=== PATIENT | female | born 1955 | race Asian ===

== ENCOUNTER → 2020-06-20 13:39 | Outpatient (BNVA) | payer SELFPAY | PROVIDERS: PCP Internal Medicine; Visit Provider Internal Medicine | DX: I48.0 Paroxysmal atrial fibrillation (principal); Z51.81 Encounter for therapeutic drug level monitoring; Z79.01 Long term (current) use of anticoagulants | CPT/HCPCS: 85610 ==

== ENCOUNTER → 2020-06-25 08:16 | Outpatient (REF) | payer OTHER, SELFPAY ==
--- NOTE | 2020-06-25 | NM_ITS ---
Lexiscan Myocardial perfusion study Indication: Chest pressure, shortness of breath, atrial fibrillation, assess for coronary disease and ischemia Technique: The patient was brought in for a Lexiscan perfusion study on 06/25/2020 and was injected 0.4 mg of Lexiscan intravenously. Within a minute of this injection 25 mCi of sestamibi was given intravenously. Images were obtained using the SPECT gamma camera interlaced with the gating device. Images were obtained in supine position. Resting perfusion study was performed on 07/01/2020. Patient was administered 25 mCi of sestamibi intravenously at rest. Images were then obtained in supine position. Total DLP 131mGy-cm. Images were processed with the software and compared side to side in short axis, horizontal long axis and vertical long axis views. Findings: Raw acquisition was reviewed. Both arms by the patient's side. The stress perfusion study showed essentially absent tracer uptake in the mid to distal inferolateral wall. Proximally, there is moderately diminished tracer uptake. The gated study shows normal LV systolic function with calculated LVEF of 68%. LV cavity is normal in size. The gated study shows diminished contractility in the mid to distal inferolateral wall. Resting study shows mildly diminished tracer uptake in the distal part of inferolateral wall. Gating at rest reveals normal wall motion with ejection fraction at 68%. The findings are consistent with mostly reversible defect along the inferolateral wall. In the distal portion this appears fixed. Impression: 1. Myocardial perfusion imaging study shows large area of severe ischemia along the inferolateral wall. In the distal portion, there is a small area of fixed component that might indicate a nontransmural infarct. 2. Gated LVEF is 68% during stress and rest. 3. Transient ischemic dilatation not present. EKG component of the test reported separately.
--- NOTE | 2020-06-25 08:30 | CA_ITS ---
Transthoracic Echocardiogram Patient (Last, First, Middle): Dominga Diaz, Gender: Female Date of : 1955 Age: 64 Procedure Date: 06/25/2020 Procedure Type: Transthoracic Echocardiogram Location: OP Height: 157.48 cm Weight: 72.57 kg BSA: 1.74 m2 Heart Rate: bpm BP: 148 / 80 mmHg Cellophane Tester: SHERRELL Referring MD: Alex Kelly MD Symptoms: 148.0 Paroxysmal atrial fibrillation 110 Essential hypertension Study Quality: Fair ECG Rhythm: Sinus Conclusions: - The left ventricular systolic function is normal. The visually estimated ejection fraction is between 60-65%. - The left atrium is severely dilated. - The mitral valve appears rheumatic. There is moderate mitral valve stenosis. - The pulmonary artery systolic pressure is normal. Findings Left Ventricle Normal left ventricular cavity size. There is normal left ventricular wall thickness. The left ventricular systolic function is normal. The visually estimated ejection fraction is between 60-65%. There is no evidence of regional wall motion abnormalities. Evidence suggests grade II (moderate) diastolic dysfunction. Right Ventricle Normal right ventricular cavity size and systolic function. Atria The left atrium is severely dilated. The right atrium is normal in size. Aortic Valve There is a normal trileaflet aortic valve. There is no aortic valve stenosis. There is no aortic valve regurgitation. Mitral Valve The mitral valve appears rheumatic. There is mild mitral annular calcification. There is trace mitral valve regurgitation. There is moderate mitral valve stenosis. Mean gradient across the mitral valve 4.75 mm Hg at 62/Min. Mitral valve area by pressure half time 1.3-1.4 sq cm. Pulmonic Valve The pulmonic valve was not well visualized. Tricuspid Valve Normal tricuspid valve structure. There is trace tricuspid valve regurgitation. The pulmonary artery systolic pressure is normal. Great Vessels The aortic annulus, sinuses of valsalva, and asc aorta are normal in size. Venous The inferior vena cava is normal in size and collapses greater than 50% with inspiration. Pericardium/Pleural There is no evidence of pericardial effusion. Prior Study Comparison No significant change compared to prior study dated: 11/09/2019. Measurements 2D Linear Measurements IVSd: 1.06 0.6-0.9/0.6-1.0 cm LVIDd: 5.27 3.9-5.3/4.2-5.9 cm LVIDs: 3.22 2.0-3.6 cm LVPWd: 0.94 0.7-1.1 cm Ao Root: 2.54 2.1-3.5 cm LV Mass: 248.08 67-162/88-224 g LVOT Diam: 1.88 3.0+(-)1.3 cm Mitral Valve MV VTI: 0.53 MV Pk Kamran: 1.82 MV Mn Kamran: 1.01 MV Pk Grad: 13.22 MV Mn Grad: 4.75 MV Pk E: 1.57 MV PK A: 0.80 MV Decel Time: 303.29 E/A: 1.96 E'Lateral: 0.09 E'Medial: 0.06 PHT: 165.09 MVA PHT: 1.33 Decel [place]: 5.19 Aortic Valve AoV Pk Kamran: 1.49 AoV Pk Grad: 9.04 LVOT LVOT Pk Kamran: 0.90 LVOT Mn Kamran: 0.64 LVOT VTI: 0.22 LVOT Pk Grad: 3.23 LVOT Mn Grad: 1.88 LVOT Diam: 1.88 LVOT Area: 2.77 Diastolic Function MV Pk E: 1.57 MV Pk A: 0.80 E/A: 1.96 E'Medial: 0.06 E' Laterial: 0.09 Tricuspid Valve TR Pk Kamran: 2.59 TR Pk Grad: 26.85 RA Press: 3.00 RVSP: 29.00 Great Vessels Aorta Ao Root-2D: 2.54 2.0-3.7 cm Ao Asc: 3.04 2.1-3.4 cm Updated in Other Vendor System with Status of Final Obey Bartlett MD electronically signed on 06/25/2020 5:17:59 PM with status of Final
--- NOTE | 2020-06-25 09:30 | CA_ITS ---
Acquisition Time: 2020-06-25 09:06:44 Total Exercise Time: 00:02:00 Test Indications: Chest Pain Medications: TRICOR PROTONIX CELEBREX AMLODIPINE AMIODORONE WARFARIN Protocol: LEXISCAN Max HR: 084 BPM 53% of Pred: 157 BPM Max BP: 138/070 mmHG Max Work Load: 1.0 METS Pharmacological stress test using Lexiscan while sitting and kicking her feet. Pt tolerated well, denies any anginal sx. Pt feeling dizzy, sx reversed with Aminophyline 75 mg IV. EKG without any arrhythmia. Non-diagnostic for ischemia. Nuclear images to follow. Normotensive response to test. Test reviewed with Dr. Bartlett Referred By: Alex Kelly Overread By: Eugenio Gaines
== END ==
LOC: HO.CARD 08:16
PROVIDERS: Visit Provider Internal Medicine Cardiovascular Disease
DX: R07.89 Other chest pain (principal); I48.0 Paroxysmal atrial fibrillation; I10 Essential (primary) hypertension; R53.83 Other fatigue; I05.0 Rheumatic mitral stenosis
CPT/HCPCS: 78452; 93017; 93306; A9500; J0280; J2785

== ENCOUNTER → 2020-06-28 14:05 | Outpatient (BNVA) | payer OTHER, SELFPAY | PROVIDERS: PCP Internal Medicine; Visit Provider Internal Medicine | DX: I48.0 Paroxysmal atrial fibrillation (principal); Z51.81 Encounter for therapeutic drug level monitoring; Z79.01 Long term (current) use of anticoagulants | CPT/HCPCS: 85610; 99211 ==

== ENCOUNTER → 2020-07-15 10:22 | Outpatient (BNVA) | payer OTHER, SELFPAY | PROVIDERS: PCP Internal Medicine; Referring Provider Internal Medicine; Visit Provider Internal Medicine | DX: I48.0 Paroxysmal atrial fibrillation (principal); Z51.81 Encounter for therapeutic drug level monitoring; Z79.01 Long term (current) use of anticoagulants | CPT/HCPCS: 85610 ==

== ENCOUNTER → 2020-07-25 11:26 | Outpatient (BNVA) | payer SELFPAY | PROVIDERS: PCP Internal Medicine; Referring Provider Internal Medicine; Visit Provider Nurse Practitioner Family | DX: Z01.810 Encounter for preprocedural cardiovascular examination (principal); R94.39 Abnormal result of other cardiovascular function study; I20.9 Angina pectoris, unspecified; I48.0 Paroxysmal atrial fibrillation; I10 Essential (primary) hypertension; I05.0 Rheumatic mitral stenosis; Z79.01 Long term (current) use of anticoagulants | CPT/HCPCS: 93005 ==

== ENCOUNTER 2020-07-25 12:38 | Outpatient (REF) | payer OTHER, SELFPAY ==
[2020-07-25 14:47] LABS: Hematocrit 39.9 % (37-47); Mean Corpuscular HGB Conc 32.6 g/dl (31.0-35.0); Mean Corpuscular Hemoglobin 30.6 pg (27.0-33.0); Mean Corpuscular Volume 93.9 fL (80-98); Mean Platelet Volume 9.4 fL (9.4-12.3); Platelet Count 316 X10*3/uL (160-400); Red Blood Count 4.25 X10*6/uL (4.20-5.50); Red Cell Distribution Width 12.5 % (11.0-16.0); White Blood Count 8.2 X10*3/uL (4.8-10.8)
[2020-07-25 14:56] LABS: INTERNATIONAL NORM RATIO 2.7 (0.9-1.1); Prothrombin Time 31.9 SEC (10.8-13.0)
[2020-07-25 15:14] LABS: Anion Gap 14 (12-20); Blood Urea Nitrogen 25 mg/dL (9-16); Calcium 9.2 mg/dL (8.4-10.2); Carbon Dioxide 26 mmol/L (22-29); Chloride 104 mmol/L (96-108); Estimated Glomerular Filt Rate > 60; Glucose Random 103 mg/dL (60-115); Potassium 4.2 mmol/l (3.3-5.1); Sodium 140 mmol/L (135-145)
== END 2020-07-25 12:39 | disposition home or self-care (01) ==
LOC: HO.LAB 12:38
PROVIDERS: PCP Internal Medicine; Visit Provider Nurse Practitioner Family
DX: R94.39 Abnormal result of other cardiovascular function study (principal)
CPT/HCPCS: 36415; 80048; 85027; 85610

== ENCOUNTER → 2020-08-02 10:42 | Outpatient (BNVA) | payer OTHER, SELFPAY | PROVIDERS: PCP Internal Medicine; Visit Provider Internal Medicine | DX: I48.0 Paroxysmal atrial fibrillation (principal); Z51.81 Encounter for therapeutic drug level monitoring; Z79.01 Long term (current) use of anticoagulants | CPT/HCPCS: 85610; 99211 ==

== ENCOUNTER 2020-08-06 08:52 | Outpatient (REF) | payer OTHER, SELFPAY ==
[2020-08-06 09:46] LABS: COVID-19 Test Negative (Negative)
== END 2020-08-06 08:53 | disposition home or self-care (01) ==
LOC: HO.EMPCOV 08:52
PROVIDERS: Visit Provider Internal Medicine
DX: Z20.828 Contact with and (suspected) exposure to other viral communicable diseases (principal)
CPT/HCPCS: 87635; C9803

== ENCOUNTER → 2020-08-15 13:45 | Outpatient (BNVA) | payer OTHER, SELFPAY | PROVIDERS: PCP Internal Medicine; Visit Provider Internal Medicine | DX: I48.0 Paroxysmal atrial fibrillation (principal); Z51.81 Encounter for therapeutic drug level monitoring; Z79.01 Long term (current) use of anticoagulants | CPT/HCPCS: 85610; 99211 ==

== ENCOUNTER → 2020-08-23 13:55 | Outpatient (BNVA) | payer OTHER, SELFPAY | PROVIDERS: PCP Internal Medicine; Visit Provider Internal Medicine | DX: I48.0 Paroxysmal atrial fibrillation (principal); Z51.81 Encounter for therapeutic drug level monitoring; Z79.01 Long term (current) use of anticoagulants | CPT/HCPCS: 85610; 99211 ==

== ENCOUNTER → 2020-08-30 14:02 | Outpatient (BNVA) | payer OTHER, SELFPAY | PROVIDERS: PCP Internal Medicine; Visit Provider Internal Medicine | DX: I48.0 Paroxysmal atrial fibrillation (principal); Z51.81 Encounter for therapeutic drug level monitoring; Z79.01 Long term (current) use of anticoagulants | CPT/HCPCS: 85610; 99211 ==

== ENCOUNTER → 2020-09-03 11:13 | Outpatient (BNVA) | payer MEDICAID, SELFPAY | PROVIDERS: PCP Internal Medicine; Visit Provider Nurse Practitioner Family | DX: Z76.89 Persons encountering health services in other specified circumstances (principal) ==

== ENCOUNTER → 2020-09-11 14:00 | Outpatient (BNVA) | payer OTHER, SELFPAY | PROVIDERS: PCP Internal Medicine; Visit Provider Internal Medicine | DX: I48.0 Paroxysmal atrial fibrillation (principal); Z51.81 Encounter for therapeutic drug level monitoring; Z79.01 Long term (current) use of anticoagulants | CPT/HCPCS: 85610; 99211 ==

== ENCOUNTER → 2020-09-27 12:48 | Outpatient (BNVA) | payer OTHER, SELFPAY | PROVIDERS: PCP Internal Medicine; Visit Provider Internal Medicine Cardiovascular Disease | DX: I49.8 Other specified cardiac arrhythmias (principal) | CPT/HCPCS: 93005 ==

== ENCOUNTER → 2020-10-10 15:00 | Outpatient (BNVA) | payer OTHER, SELFPAY | PROVIDERS: PCP Internal Medicine; Visit Provider Internal Medicine Cardiovascular Disease ==

== ENCOUNTER → 2020-10-11 13:55 | Outpatient (BNVA) | payer OTHER, SELFPAY | PROVIDERS: PCP Internal Medicine; Visit Provider Internal Medicine | DX: I48.0 Paroxysmal atrial fibrillation (principal); Z51.81 Encounter for therapeutic drug level monitoring; Z79.01 Long term (current) use of anticoagulants | CPT/HCPCS: 85610; 99211 ==

== ENCOUNTER → 2020-11-08 14:05 | Outpatient (BNVA) | payer OTHER, SELFPAY | PROVIDERS: PCP Internal Medicine; Visit Provider Internal Medicine | DX: I48.0 Paroxysmal atrial fibrillation (principal); Z51.81 Encounter for therapeutic drug level monitoring; Z79.01 Long term (current) use of anticoagulants | CPT/HCPCS: 85610; 99211 ==

== ENCOUNTER → 2020-12-06 14:00 | Outpatient (BNVA) | payer OTHER, SELFPAY | PROVIDERS: PCP Internal Medicine; Visit Provider Internal Medicine | DX: I48.0 Paroxysmal atrial fibrillation (principal); Z51.81 Encounter for therapeutic drug level monitoring; Z79.01 Long term (current) use of anticoagulants | CPT/HCPCS: 85610; 99211 ==

== ENCOUNTER → 2020-12-20 13:54 | Outpatient (BNVA) | payer OTHER, SELFPAY | PROVIDERS: PCP Internal Medicine; Visit Provider Internal Medicine | DX: I48.0 Paroxysmal atrial fibrillation (principal); Z79.01 Long term (current) use of anticoagulants; Z51.81 Encounter for therapeutic drug level monitoring | CPT/HCPCS: 85610; 99211 ==

== ENCOUNTER → 2021-01-17 14:01 | Outpatient (BNVA) | payer OTHER, SELFPAY | PROVIDERS: PCP Internal Medicine; Visit Provider Internal Medicine | DX: I48.0 Paroxysmal atrial fibrillation (principal); Z79.01 Long term (current) use of anticoagulants; Z51.81 Encounter for therapeutic drug level monitoring | CPT/HCPCS: 85610; 99211 ==

== ENCOUNTER → 2021-01-23 13:49 | Outpatient (BNVA) | payer OTHER, SELFPAY | PROVIDERS: PCP Internal Medicine; Referring Provider Internal Medicine; Visit Provider Internal Medicine Cardiovascular Disease | DX: I05.0 Rheumatic mitral stenosis (principal); I48.0 Paroxysmal atrial fibrillation; I10 Essential (primary) hypertension | CPT/HCPCS: 93005 ==

== ENCOUNTER → 2021-02-07 13:59 | Outpatient (BNVA) | payer OTHER, SELFPAY | PROVIDERS: PCP Internal Medicine; Visit Provider Internal Medicine | DX: I48.0 Paroxysmal atrial fibrillation (principal); Z51.81 Encounter for therapeutic drug level monitoring; Z79.01 Long term (current) use of anticoagulants | CPT/HCPCS: 85610; 99211 ==

== ENCOUNTER → 2021-02-21 14:01 | Outpatient (BNVA) | payer OTHER, SELFPAY | PROVIDERS: PCP Internal Medicine; Visit Provider Internal Medicine | DX: I48.0 Paroxysmal atrial fibrillation (principal); Z51.81 Encounter for therapeutic drug level monitoring; Z79.01 Long term (current) use of anticoagulants | CPT/HCPCS: 85610; 99211 ==

== ENCOUNTER → 2021-02-28 13:50 | Outpatient (BNVA) | payer OTHER, SELFPAY | PROVIDERS: PCP Internal Medicine; Visit Provider Internal Medicine | DX: I48.0 Paroxysmal atrial fibrillation (principal); Z51.81 Encounter for therapeutic drug level monitoring; Z79.01 Long term (current) use of anticoagulants | CPT/HCPCS: 85610; 99211 ==

== ENCOUNTER → 2021-03-21 13:52 | Outpatient (BNVA) | payer OTHER, SELFPAY | PROVIDERS: PCP Internal Medicine; Visit Provider Internal Medicine | DX: I48.0 Paroxysmal atrial fibrillation (principal); Z51.81 Encounter for therapeutic drug level monitoring; Z79.01 Long term (current) use of anticoagulants | CPT/HCPCS: 85610; 99211 ==

== ENCOUNTER → 2021-03-28 14:07 | Outpatient (BNVA) | payer OTHER, SELFPAY | PROVIDERS: PCP Internal Medicine; Visit Provider Internal Medicine | DX: I48.0 Paroxysmal atrial fibrillation (principal); Z51.81 Encounter for therapeutic drug level monitoring; Z79.01 Long term (current) use of anticoagulants | CPT/HCPCS: 85610; 99211 ==

== ENCOUNTER → 2021-04-18 13:51 | Outpatient (BNVA) | payer OTHER, SELFPAY | PROVIDERS: PCP Internal Medicine; Visit Provider Internal Medicine | DX: I48.0 Paroxysmal atrial fibrillation (principal); Z51.81 Encounter for therapeutic drug level monitoring; Z79.01 Long term (current) use of anticoagulants | CPT/HCPCS: 85610; 99211 ==

== ENCOUNTER → 2021-05-02 13:53 | Outpatient (BNVA) | payer OTHER, SELFPAY | PROVIDERS: PCP Internal Medicine; Visit Provider Internal Medicine | DX: I48.0 Paroxysmal atrial fibrillation (principal); Z51.81 Encounter for therapeutic drug level monitoring; Z79.01 Long term (current) use of anticoagulants | CPT/HCPCS: 85610; 99211 ==

== ENCOUNTER 2021-05-20 08:03 | Outpatient (REF) | payer OTHER, SELFPAY ==
[2021-05-20 09:28] LABS: MANUAL DIFF FLAG NO
[2021-05-20 09:32] LABS: Basophils Absolute Auto 0.1 X10*3/uL (0.0-0.2); Basophils Percent Auto 0.8 % (0-2); Eosinophils Absolute Auto 0.3 X10*3/uL (0.0-0.4); Eosinophils Percent Auto 3.6 % (0-4); Hematocrit 40.9 % (37-47); Hemoglobin 13.6 g/dl (12.0-16.0); Imm Gran Abs Auto 0.11 X10*3/uL (0.00-0.03); Imm Gran Pct Auto 1.3 % (0.0-0.4); Lymphocytes Percent Auto 46.3 % (20-40); Mean Corpuscular HGB Conc 33.3 g/dl (31.0-35.0); Mean Corpuscular Hemoglobin 30.8 pg (27.0-33.0); Mean Corpuscular Volume 92.7 fL (80-98); Mean Platelet Volume 9.6 fL (9.4-12.3); Monocytes Absolute Auto 0.7 X10*3/uL (0.1-1.2); Monocytes Percent Auto 7.9 % (2-11); Neutrophils Absolute Auto 3.5 X10*3/uL (2.0-8.3); Neutrophils Percent Auto 40.1 % (45-73); Platelet Count 255 X10*3/uL (160-400); Red Blood Count 4.41 X10*6/uL (4.20-5.50); Red Cell Distribution Width 12.6 % (11.0-16.0); White Blood Count 8.6 X10*3/uL (4.8-10.8)
[2021-05-20 09:42] LABS: Appearance Urine CLEAR; Color Urine YELLOW; Glucose Urine UA NEG (NEG); Leukocyte Esterase Urine 1+ (NEG); Nitrite Urine NEG (NEG); Specific Gravity - Urine 1.025 (1.005-1.025); UACC Culture Trigger YES; Urine Blood 1+ (NEG); Urine Ketones NEG (NEG); Urine Protein NEG (NEG-TRACE)
[2021-05-20 09:58] LABS: Squamous Epithelial Cell Urine 1+ /LPF
[2021-05-20 09:59] LABS: Mucus Urine 1+ /LPF
[2021-05-20 10:08] LABS: Alanine Aminotransferase 40 U/L (0-31); Albumin Level 4.4 g/dL (3.5-5.0); Alkaline Phosphatase 73 U/L (39-117); Anion Gap 11 (12-20); Aspartate Amino Transferase 42 U/L (5-31); Bilirubin Total 0.5 mg/dL (0.0-1.0); Blood Urea Nitrogen 21 mg/dL (9-16); Calcium 9.4 mg/dL (8.4-10.2); Carbon Dioxide 28 mmol/L (22-29); Chloride 108 mmol/L (96-108); Cholesterol 146 mg/dL; Estimated Glomerular Filt Rate > 60; Glucose Fasting 139 mg/dL (60-99); HDL Cholesterol 35 mg/dL; LDL Cholesterol Calculated 84 mg/dl; Potassium 4.4 mmol/L (3.3-5.1); Sodium 143 mmol/L (135-145); TSH reflex Free T4 1.87 uIU/mL (0.32-4.0); Total Protein 7.3 g/dL (6.5-8.0); Triglycerides 139 mg/dL
[2021-05-20 10:15] LABS: Estimated Average Glucose 148 mg/dL; Hemoglobin A1c % 6.8 %
== END 2021-05-20 08:04 | disposition home or self-care (01) ==
LOC: HO.LAB 08:03
PROVIDERS: PCP Internal Medicine; Visit Provider Internal Medicine
DX: E78.2 Mixed hyperlipidemia (principal); I10 Essential (primary) hypertension; R73.01 Impaired fasting glucose; E55.9 Vitamin D deficiency, unspecified; E66.3 Overweight; I48.0 Paroxysmal atrial fibrillation; K21.9 Gastro-esophageal reflux disease without esophagitis
CPT/HCPCS: 36415; 80053; 80061; 81001; 82306; 83036; 84443; 85025; 87086

== ENCOUNTER → 2021-05-23 13:57 | Outpatient (BNVA) | payer OTHER, MEDICAID, SELFPAY | PROVIDERS: PCP Internal Medicine; Visit Provider Internal Medicine | DX: I48.0 Paroxysmal atrial fibrillation (principal); Z51.81 Encounter for therapeutic drug level monitoring; Z79.01 Long term (current) use of anticoagulants | CPT/HCPCS: 85610; 99211 ==

== ENCOUNTER → 2021-06-20 13:55 | Outpatient (BNVA) | payer MEDICARE, SELFPAY | PROVIDERS: PCP Internal Medicine; Visit Provider Internal Medicine | DX: I48.0 Paroxysmal atrial fibrillation (principal); Z51.81 Encounter for therapeutic drug level monitoring; Z79.01 Long term (current) use of anticoagulants | CPT/HCPCS: 85610; 99211 ==

== ENCOUNTER → 2021-06-30 12:33 | Outpatient (REF) | payer MEDICARE, MEDICAID, SELFPAY ==
--- NOTE | 2021-06-30 12:45 | CA_ITS ---
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 The calculated ejection fraction is 57% by biplane method. - The left atrium is moderately dilated. - The mitral valve appears rheumatic. There is moderate mitral valve stenosis. Mean gradient across the mitral valve 4 mm Hg at 57/minute. By pressure half time, mitral valve area 1.5sq cm (manually checked). Findings Left Ventricle Normal left ventricular cavity size. There is normal left ventricular wall thickness. The left ventricular systolic function is normal. The calculated ejection fraction is 57% by biplane method. Diastolic function is indeterminate on the basis of available data. E/E prime ratio is >15, consistent with elevated filling pressures. Right Ventricle Normal right ventricular cavity size and systolic function. Atria The left atrium is moderately dilated. The right atrium is normal in size. Aortic Valve There is a normal trileaflet aortic valve. There is mild calcification of the aortic valve. There is no aortic valve stenosis. There is no aortic valve regurgitation. Mitral Valve The mitral valve appears rheumatic. There is trace mitral valve regurgitation. There is moderate mitral valve stenosis. Mean gradient across the mitral valve 4 mm Hg at 57/minute. By pressure half time, mitral valve area 1.5sq cm (manually checked). Pulmonic Valve The pulmonic valve was not well visualized. Tricuspid Valve There is trace tricuspid valve regurgitation. The pulmonary artery systolic pressure is normal. Great Vessels The aortic annulus, sinuses of valsalva, and asc aorta are normal in size. Venous The inferior vena cava is normal in size and collapses greater than 50% with inspiration. Pericardium/Pleural There is no evidence of pericardial effusion. Prior Study Comparison No significant change compared to prior study dated: 06/25/2020. Measurements 2D Linear Measurements IVSd: 1.02 0.6-0.9/0.6-1.0 cm LVIDd: 5.25 3.9-5.3/4.2-5.9 cm LVIDd Index: 3.02 2.4-3.2/2.2-3.1 cm/m2 LVIDs: 3.57 2.0-3.6 cm LVPWd: 0.92 0.7-1.1 cm Ao Root: 2.50 2.1-3.5 cm LA Diam: 4.00 2.7-3.8/3.0-4.0 cm LAIDs Index: 2.30 1.5-2.3 cm/m2 LV Mass: 235.75 67-162/88-224 g LV Mass Index: 135.49 43-95/49-115 g/m2 LVOT Diam: 2.10 3.0+(-)1.3 cm 2D Systolic Function EF 4C: 62.30 >55% EF 2C: 54.10 >55% EF BiP: 56.50 >55% Mitral Valve MV VTI: 0.56 MV Pk Kamran: 1.54 MV Mn Kamran: 0.93 MV Pk Grad: 9.00 MV Mn Grad: 4.00 MV Pk E: 1.42 MV PK A: 0.78 MV Decel Time: 345.00 E/A: 1.80 E'Lateral: 4.24 E'Medial: 4.90 E/E' Med: 29.00 E/E' Lat: 33.50 PHT: 101.00 MVA PHT: 2.18 MVA Continuity: 1.31 Decel [place]: 4.11 Aortic Valve AoV Pk Kamran: 1.56 AoV Pk Grad: 10.00 LVOT LVOT Pk Kamran: 0.98 LVOT Mn Kamran: 0.66 LVOT VTI: 0.21 LVOT Pk Grad: 4.00 LVOT Mn Grad: 2.00 LVOT Diam: 2.10 LVOT Area: 3.46 Diastolic Function MV Pk E: 1.42 MV Pk A: 0.78 E/A: 1.80 E'Medial: 4.90 E/E' Med: 29.00 E' Laterial: 4.24 E/E' Lat: 33.50 Right Ventricle TAPSE (mm): 2.39 Tricuspid Valve TR Pk Kamran: 2.67 TR Pk Grad: 29.00 RA Press: 3.00 RVSP: 32.00 Great Vessels Aorta Ao Root-2D: 2.50 2.0-3.7 cm Ao Asc: 3.10 2.1-3.4 cm Updated in Other Vendor System with Status of Final Obey Bartlett MD electronically signed on 07/02/2021 1:01:50 PM with status of Final
== END ==
LOC: HO.CARD 12:33
PROVIDERS: PCP Internal Medicine; Visit Provider Internal Medicine Cardiovascular Disease
DX: I05.0 Rheumatic mitral stenosis (principal)
CPT/HCPCS: 93306

== ENCOUNTER → 2021-07-18 13:56 | Outpatient (BNVA) | payer MEDICARE, SELFPAY | PROVIDERS: PCP Internal Medicine; Visit Provider Internal Medicine | DX: I48.0 Paroxysmal atrial fibrillation (principal); Z51.81 Encounter for therapeutic drug level monitoring; Z79.01 Long term (current) use of anticoagulants | CPT/HCPCS: 85610; 99211 ==

== ENCOUNTER → 2021-07-24 14:02 | Outpatient (BNVA) | payer MEDICARE, SELFPAY | PROVIDERS: PCP Internal Medicine; Referring Provider Internal Medicine; Visit Provider Internal Medicine Cardiovascular Disease | DX: I48.0 Paroxysmal atrial fibrillation (principal); I05.0 Rheumatic mitral stenosis | CPT/HCPCS: 93005; 99212 ==

== ENCOUNTER → 2021-07-25 13:51 | Outpatient (BNVA) | payer MEDICARE, MEDICAID, SELFPAY | PROVIDERS: PCP Internal Medicine; Visit Provider Internal Medicine | DX: I48.0 Paroxysmal atrial fibrillation (principal); Z51.81 Encounter for therapeutic drug level monitoring; Z79.01 Long term (current) use of anticoagulants | CPT/HCPCS: 85610 ==

== ENCOUNTER → 2021-08-06 14:14 | Outpatient (BNVA) | payer MEDICARE, SELFPAY | PROVIDERS: PCP Internal Medicine; Visit Provider Internal Medicine | DX: I48.0 Paroxysmal atrial fibrillation (principal); Z51.81 Encounter for therapeutic drug level monitoring; Z79.01 Long term (current) use of anticoagulants | CPT/HCPCS: 85610; 99211 ==

== ENCOUNTER → 2021-08-15 14:04 | Outpatient (BNVA) | payer MEDICARE, SELFPAY | PROVIDERS: PCP Internal Medicine; Visit Provider Internal Medicine | DX: I48.0 Paroxysmal atrial fibrillation (principal); Z51.81 Encounter for therapeutic drug level monitoring; Z79.01 Long term (current) use of anticoagulants | CPT/HCPCS: 85610; 99211 ==

== ENCOUNTER → 2021-08-25 14:21 | Outpatient (BNVA) | payer MEDICARE, SELFPAY | PROVIDERS: PCP Internal Medicine; Visit Provider Internal Medicine | DX: I48.0 Paroxysmal atrial fibrillation (principal); Z51.81 Encounter for therapeutic drug level monitoring; Z79.01 Long term (current) use of anticoagulants | CPT/HCPCS: 85610; 99211 ==

== ENCOUNTER → 2021-09-01 14:22 | Outpatient (BNVA) | payer MEDICARE, SELFPAY | PROVIDERS: PCP Internal Medicine; Visit Provider Internal Medicine | DX: I48.0 Paroxysmal atrial fibrillation (principal); Z51.81 Encounter for therapeutic drug level monitoring; Z79.01 Long term (current) use of anticoagulants | CPT/HCPCS: 85610; 99211 ==

== ENCOUNTER → 2021-09-11 14:02 | Outpatient (BNVA) | payer MEDICARE, MEDICAID, SELFPAY | PROVIDERS: PCP Internal Medicine; Visit Provider Internal Medicine | DX: I48.0 Paroxysmal atrial fibrillation (principal); Z51.81 Encounter for therapeutic drug level monitoring; Z79.01 Long term (current) use of anticoagulants | CPT/HCPCS: 85610; 99211 ==

== ENCOUNTER 2021-09-18 09:05 | Outpatient (REF) | payer MEDICARE, MEDICAID, SELFPAY ==
[2021-09-18 09:39] LABS: MANUAL DIFF FLAG NO
[2021-09-18 10:00] LABS: Basophils Absolute Auto 0.1 X10*3/uL (0.0-0.2); Basophils Percent Auto 0.7 % (0-2); Eosinophils Absolute Auto 0.3 X10*3/uL (0.0-0.4); Eosinophils Percent Auto 3.2 % (0-4); Hematocrit 40.7 % (37.0-47.0); Hemoglobin 13.4 g/dl (12.0-16.0); Imm Gran Abs Auto 0.06 X10*3/uL (0.00-0.03); Imm Gran Pct Auto 0.7 % (0.0-0.4); Lymphocytes Absolute Auto 3.7 X10*3/uL (1.2-4.9); Mean Corpuscular HGB Conc 32.9 g/dl (31.0-35.0); Mean Corpuscular Hemoglobin 30.7 pg (27.0-33.0); Mean Corpuscular Volume 93.3 fL (80.0-98.0); Monocytes Absolute Auto 0.6 X10*3/uL (0.1-1.2); Monocytes Percent Auto 7.9 % (2-11); Neutrophils Absolute Auto 3.3 x10*3/uL (2.0-8.3); Neutrophils Percent Auto 41.5 % (45-73); Platelet Count 275 X10*3/uL (160-400); Red Blood Count 4.36 X10*6/uL (4.20-5.50); Red Cell Distribution Width 12.8 % (11.0-16.0); White Blood Count 8.1 X10*3/uL (4.8-10.8)
[2021-09-18 10:13] LABS: Estimated Average Glucose 131 mg/dL; Hemoglobin A1c % 6.2 %
[2021-09-18 10:30] LABS: Alanine Aminotransferase 25 U/L (0-31); Albumin Level 4.4 g/dL (3.5-5.0); Alkaline Phosphatase 67 U/L (39-117); Anion Gap 10 (12-20); Aspartate Amino Transferase 30 U/L (5-31); Bilirubin Total 0.5 mg/dL (0.0-1.0); Blood Urea Nitrogen 27 mg/dL (9-16); Calcium 9.6 mg/dL (8.4-10.2); Carbon Dioxide 29 mmol/L (22-29); Chloride 109 mmol/L (96-108); Cholesterol 136 mg/dL; Estimated Glomerular Filt Rate > 60; Glucose Fasting 119 mg/dL (60-99); HDL Cholesterol 41 mg/dL; LDL Cholesterol Calculated 79 mg/dl; Potassium 4.2 mmol/L (3.3-5.1); Sodium 144 mmol/L (135-145); Total Protein 7.4 g/dL (6.5-8.0); Triglycerides 84 mg/dL
[2021-09-18 10:52] LABS: TSH reflex Free T4 1.49 uIU/mL (0.32-4.0); Vitamin D 25-OH Total 30.2 ng/mL (>30)
[2021-09-18 10:55] LABS: Appearance Urine CLEAR; Color Urine YELLOW; Glucose Urine UA NEG (NEG); Leukocyte Esterase Urine TRACE (NEG); Nitrite Urine NEG (NEG); Specific Gravity - Urine 1.025 (1.005-1.025); UACC Culture Trigger YES; Urine Blood 1+ (NEG); Urine Ketones NEG (NEG); Urine Protein NEG (NEG-TRACE)
[2021-09-18 11:05] LABS: Mucus Urine TRACE /LPF; Squamous Epithelial Cell Urine TRACE /LPF
== END 2021-09-18 09:06 | disposition home or self-care (01) ==
LOC: HO.LAB 09:05
PROVIDERS: PCP Internal Medicine; Visit Provider Internal Medicine
DX: E78.00 Pure hypercholesterolemia, unspecified (principal); E11.9 Type 2 diabetes mellitus without complications; E55.9 Vitamin D deficiency, unspecified; I10 Essential (primary) hypertension
CPT/HCPCS: 36415; 80053; 80061; 81001; 82306; 83036; 84443; 85025; 87086

== ENCOUNTER → 2021-10-10 13:55 | Outpatient (BNVA) | payer MEDICARE, MEDICAID, SELFPAY | PROVIDERS: PCP Internal Medicine; Visit Provider Internal Medicine | DX: I48.0 Paroxysmal atrial fibrillation (principal); Z51.81 Encounter for therapeutic drug level monitoring; Z79.01 Long term (current) use of anticoagulants | CPT/HCPCS: 85610; 99211 ==

== ENCOUNTER → 2021-10-16 14:12 | Outpatient (BNVA) | payer MEDICARE, MEDICAID, SELFPAY | PROVIDERS: PCP Internal Medicine; Visit Provider Internal Medicine | DX: I48.0 Paroxysmal atrial fibrillation (principal); Z51.81 Encounter for therapeutic drug level monitoring; Z79.01 Long term (current) use of anticoagulants | CPT/HCPCS: 85610; 99211 ==

== ENCOUNTER → 2021-11-20 13:54 | Outpatient (BNVA) | payer MEDICARE, MEDICAID, SELFPAY | PROVIDERS: PCP Internal Medicine; Visit Provider Internal Medicine | DX: I48.0 Paroxysmal atrial fibrillation (principal); Z51.81 Encounter for therapeutic drug level monitoring; Z79.01 Long term (current) use of anticoagulants | CPT/HCPCS: 85610; 99211 ==

== ENCOUNTER → 2021-12-19 13:52 | Outpatient (BNVA) | payer MEDICARE, MEDICAID, SELFPAY | PROVIDERS: PCP Internal Medicine; Visit Provider Internal Medicine | DX: I48.0 Paroxysmal atrial fibrillation (principal); Z51.81 Encounter for therapeutic drug level monitoring; Z79.01 Long term (current) use of anticoagulants | CPT/HCPCS: 85610; 99211 ==

== ENCOUNTER → 2022-01-09 13:57 | Outpatient (BNVA) | payer MEDICARE, MEDICAID, SELFPAY | PROVIDERS: PCP Internal Medicine; Visit Provider Internal Medicine | DX: I48.0 Paroxysmal atrial fibrillation (principal); Z51.81 Encounter for therapeutic drug level monitoring; Z79.01 Long term (current) use of anticoagulants | CPT/HCPCS: 85610 ==

== ENCOUNTER → 2022-01-29 10:46 | Outpatient (BNVA) | payer MEDICARE, MEDICAID, SELFPAY | PROVIDERS: PCP Internal Medicine; Referring Provider Internal Medicine; Visit Provider Internal Medicine Cardiovascular Disease | DX: I48.0 Paroxysmal atrial fibrillation (principal); I05.0 Rheumatic mitral stenosis; I10 Essential (primary) hypertension | CPT/HCPCS: 93005; 99212 ==

== ENCOUNTER → 2022-02-06 13:56 | Outpatient (BNVA) | payer MEDICARE, MEDICAID, SELFPAY | PROVIDERS: PCP Internal Medicine; Visit Provider Internal Medicine | DX: I48.0 Paroxysmal atrial fibrillation (principal); Z79.01 Long term (current) use of anticoagulants; Z51.81 Encounter for therapeutic drug level monitoring | CPT/HCPCS: 85610; 99211 ==

== ENCOUNTER 2022-02-12 07:52 | Outpatient (REF) | payer OTHER, SELFPAY ==
[2022-02-12 08:19] LABS: MANUAL DIFF FLAG NO
[2022-02-12 08:36] LABS: Basophils Absolute Auto 0.1 X10*3/uL (0.0-0.2); Basophils Percent Auto 0.7 % (0-2); Eosinophils Absolute Auto 0.3 X10*3/uL (0.0-0.4); Eosinophils Percent Auto 2.9 % (0-4); Hematocrit 40.9 % (37.0-47.0); Hemoglobin 13.3 g/dl (12.0-16.0); Imm Gran Abs Auto 0.09 X10*3/uL (0.00-0.03); Imm Gran Pct Auto 0.9 % (0.0-0.4); Lymphocytes Absolute Auto 4.1 X10*3/uL (1.2-4.9); Lymphocytes Percent Auto 42.5 % (20-40); Mean Corpuscular HGB Conc 32.5 g/dl (31.0-35.0); Mean Corpuscular Volume 92.3 fL (80.0-98.0); Mean Platelet Volume 8.9 fL (9.4-12.3); Monocytes Absolute Auto 0.7 X10*3/uL (0.1-1.2); Monocytes Percent Auto 7.5 % (2-11); Neutrophils Absolute Auto 4.4 x10*3/uL (2.0-8.3); Neutrophils Percent Auto 45.5 % (45-73); Platelet Count 244 X10*3/uL (160-400); Red Blood Count 4.43 X10*6/uL (4.20-5.50); Red Cell Distribution Width 12.4 % (11.0-16.0); White Blood Count 9.6 X10*3/uL (4.8-10.8)
[2022-02-12 08:43] LABS: Estimated Average Glucose 134 mg/dL; Hemoglobin A1c % 6.3 %
[2022-02-12 09:02] LABS: Alanine Aminotransferase 31 U/L (0-31); Albumin Level 4.3 g/dL (3.5-5.0); Alkaline Phosphatase 86 U/L (39-117); Anion Gap 11 (12-20); Aspartate Amino Transferase 27 U/L (5-31); Bilirubin Total 0.4 mg/dL (0.0-1.0); Blood Urea Nitrogen 21 mg/dL (9-16); Calcium 9.5 mg/dL (8.4-10.2); Carbon Dioxide 27 mmol/L (22-29); Chloride 106 mmol/L (96-108); Cholesterol 151 mg/dL; Estimated Glomerular Filt Rate > 60; Glucose Fasting 130 mg/dL (60-99); HDL Cholesterol 39 mg/dL; LDL Cholesterol Calculated 89 mg/dl; Potassium 4.3 mmol/L (3.3-5.1); Sodium 140 mmol/L (135-145); Total Protein 7.4 g/dL (6.5-8.0); Triglycerides 116 mg/dL
[2022-02-12 09:16] LABS: TSH reflex Free T4 2.23 uIU/mL (0.32-4.0)
[2022-02-12 10:17] LABS: Appearance Urine CLEAR; Color Urine YELLOW; Glucose Urine UA NEG (NEG); Leukocyte Esterase Urine NEG (NEG); Nitrite Urine NEG (NEG); UACC Culture Trigger NO; Urine Blood 1+ (NEG); Urine Ketones NEG (NEG); Urine Protein NEG (NEG-TRACE)
[2022-02-12 10:27] LABS: Creatinine Urine 35.22 mg/dL; Microalbum/Creatinine Ratio Ur 14.1 ug/mg cr
[2022-02-12 10:53] LABS: WBC Urine 0-2 /HPF (0-4)
== END 2022-02-12 07:53 | disposition home or self-care (01) ==
LOC: HO.LAB 07:52
PROVIDERS: PCP Internal Medicine; Visit Provider Internal Medicine
DX: E78.00 Pure hypercholesterolemia, unspecified (principal); E11.9 Type 2 diabetes mellitus without complications; E55.9 Vitamin D deficiency, unspecified; I10 Essential (primary) hypertension
CPT/HCPCS: 36415; 80053; 80061; 81001; 81003; 82043; 82306; 83036; 84443; 85025

== ENCOUNTER → 2022-03-06 14:07 | Outpatient (BNVA) | payer OTHER, SELFPAY | PROVIDERS: PCP Internal Medicine; Visit Provider Internal Medicine | DX: I48.0 Paroxysmal atrial fibrillation (principal); Z79.01 Long term (current) use of anticoagulants; Z51.81 Encounter for therapeutic drug level monitoring | CPT/HCPCS: 85610; 99211 ==

== ENCOUNTER → 2022-03-12 14:08 | Outpatient (BNVA) | payer OTHER, SELFPAY | PROVIDERS: PCP Internal Medicine; Visit Provider Internal Medicine | DX: I48.0 Paroxysmal atrial fibrillation (principal); Z51.81 Encounter for therapeutic drug level monitoring; Z79.01 Long term (current) use of anticoagulants | CPT/HCPCS: 85610; 99211 ==

== ENCOUNTER → 2022-03-19 14:10 | Outpatient (BNVA) | payer OTHER, SELFPAY | PROVIDERS: PCP Internal Medicine; Visit Provider Internal Medicine | DX: I48.0 Paroxysmal atrial fibrillation (principal); Z51.81 Encounter for therapeutic drug level monitoring; Z79.01 Long term (current) use of anticoagulants | CPT/HCPCS: 85610; 99211 ==

== ENCOUNTER → 2022-04-17 13:46 | Outpatient (BNVA) | payer OTHER, SELFPAY | PROVIDERS: PCP Internal Medicine; Visit Provider Internal Medicine | DX: I48.0 Paroxysmal atrial fibrillation (principal); Z79.01 Long term (current) use of anticoagulants; Z51.81 Encounter for therapeutic drug level monitoring | CPT/HCPCS: 85610; 99211 ==

== ENCOUNTER → 2022-05-15 14:02 | Outpatient (BNVA) | payer OTHER, SELFPAY | PROVIDERS: PCP Internal Medicine; Visit Provider Internal Medicine | DX: I48.0 Paroxysmal atrial fibrillation (principal); Z79.01 Long term (current) use of anticoagulants; Z51.81 Encounter for therapeutic drug level monitoring | CPT/HCPCS: 85610; 99211 ==

== ENCOUNTER 2022-06-08 08:45 | Outpatient (REF) | payer OTHER, SELFPAY ==
[2022-06-08 09:05] LABS: MANUAL DIFF FLAG NO
[2022-06-08 09:12] LABS: Basophils Absolute Auto 0.1 X10*3/uL (0.0-0.2); Eosinophils Absolute Auto 0.3 X10*3/uL (0.0-0.4); Eosinophils Percent Auto 3.1 % (0-4); Hematocrit 41.2 % (37.0-47.0); Hemoglobin 13.5 g/dl (12.0-16.0); Imm Gran Abs Auto 0.09 X10*3/uL (0.00-0.03); Imm Gran Pct Auto 1.1 % (0.0-0.4); Lymphocytes Percent Auto 47.3 % (20-40); Mean Corpuscular HGB Conc 32.8 g/dl (31.0-35.0); Mean Corpuscular Hemoglobin 30.5 pg (27.0-33.0); Mean Corpuscular Volume 93.2 fL (80.0-98.0); Mean Platelet Volume 9.2 fL (9.4-12.3); Monocytes Absolute Auto 0.7 X10*3/uL (0.1-1.2); Monocytes Percent Auto 7.7 % (2-11); Neutrophils Absolute Auto 3.4 x10*3/uL (2.0-8.3); Neutrophils Percent Auto 39.8 % (45-73); Platelet Count 265 X10*3/uL (160-400); Red Blood Count 4.42 X10*6/uL (4.20-5.50); Red Cell Distribution Width 12.6 % (11.0-16.0); White Blood Count 8.4 X10*3/uL (4.8-10.8)
[2022-06-08 09:18] LABS: Estimated Average Glucose 134 mg/dL; Hemoglobin A1c % 6.3 %
[2022-06-08 09:48] LABS: Alanine Aminotransferase 30 U/L (0-31); Albumin Level 4.5 g/dL (3.5-5.0); Alkaline Phosphatase 69 U/L (39-117); Anion Gap 15 (12-20); Aspartate Amino Transferase 35 U/L (5-31); Bilirubin Total 0.5 mg/dL (0.0-1.0); Blood Urea Nitrogen 25 mg/dL (9-16); Calcium 9.4 mg/dL (8.4-10.2); Carbon Dioxide 26 mmol/L (22-29); Chloride 107 mmol/L (96-108); Cholesterol 147 mg/dL; Estimated Glomerular Filt Rate > 60; Glucose Fasting 127 mg/dL (60-99); HDL Cholesterol 35 mg/dL; LDL Cholesterol Calculated 84 mg/dl; Potassium 4.1 mmol/L (3.3-5.1); Sodium 144 mmol/L (135-145); Total Protein 7.4 g/dL (6.5-8.0); Triglycerides 143 mg/dL
[2022-06-08 09:59] LABS: TSH reflex Free T4 1.36 uIU/mL (0.32-4.0); Vitamin D 25-OH Total 37.6 ng/mL (>30)
[2022-06-08 10:02] LABS: Appearance Urine Clear; Color Urine Yellow; Glucose Urine UA Negative (Negative); Leukocyte Esterase Urine Small (1+) (Negative); Nitrite Urine Negative (Negative); PH 5.5 (5.0-9.0); UMIC TRIGGER UACC YES; Urine Blood Trace (Negative); Urine Ketones Negative (Negative); Urine Protein Negative (Neg-Trace)
[2022-06-08 10:13] LABS: Bacteria Urine None Seen (None Seen); Hyaline Casts Urine 0-2 /LPF (0-2); Squamous Epithelial Cell Urine 0-2 /HPF (0-2); UACC Culture Trigger YES; WBC Urine 0-5 /HPF (0-5)
[2022-06-08 10:22] LABS: Creatinine Urine 118.17 mg/dL; Microalbum/Creatinine Ratio Ur 14.3 ug/mg cr
== END 2022-06-08 08:46 | disposition home or self-care (01) ==
LOC: HO.LAB 08:45
PROVIDERS: PCP Internal Medicine; Visit Provider Internal Medicine
DX: E78.00 Pure hypercholesterolemia, unspecified (principal); E55.9 Vitamin D deficiency, unspecified; E11.9 Type 2 diabetes mellitus without complications; I10 Essential (primary) hypertension
CPT/HCPCS: 36415; 80053; 80061; 81001; 81003; 82043; 82306; 83036; 84443; 85025; 87086

== ENCOUNTER → 2022-06-12 14:00 | Outpatient (BNVA) | payer OTHER, SELFPAY | PROVIDERS: PCP Internal Medicine; Visit Provider Internal Medicine | DX: I48.0 Paroxysmal atrial fibrillation (principal); Z79.01 Long term (current) use of anticoagulants; Z51.81 Encounter for therapeutic drug level monitoring | CPT/HCPCS: 85610; 99211 ==

== ENCOUNTER → 2022-07-10 14:01 | Outpatient (BNVA) | payer OTHER, SELFPAY | PROVIDERS: PCP Internal Medicine; Visit Provider Internal Medicine | DX: I48.0 Paroxysmal atrial fibrillation (principal); Z79.01 Long term (current) use of anticoagulants; Z51.81 Encounter for therapeutic drug level monitoring | CPT/HCPCS: 85610; 99211 ==

== ENCOUNTER → 2022-08-03 13:41 | Outpatient (REF) | payer OTHER, SELFPAY ==
--- NOTE | 2022-08-03 13:48 | CA_ITS ---
Transthoracic Echocardiogram Patient (Last, First, Middle): Dominga Diaz, Gender: Female Date of : 1955 Age: 67 Procedure Date: 08/03/2022 Procedure Type: Transthoracic Echocardiogram Location: OP Height: 157.48 cm Weight: 70.31 kg BSA: 1.72 m2 Heart Rate: 64 bpm BP: 140 / 72 mmHg Bridge Welder: JASSON Referring MD: Alex Kelly MD Symptoms: I05.0 - Rheumatic mitral stenosis Study Quality: Adequate ECG Rhythm: Sinus Conclusions: - The left ventricular systolic function is normal. The calculated ejection fraction is 63% by biplane method. - Overall, moderate to severe mitral stenosis. Findings Left Ventricle Normal left ventricular cavity size. There is normal left ventricular wall thickness. The left ventricular systolic function is normal. The calculated ejection fraction is 63% by biplane method. There is no evidence of regional wall motion abnormalities. Diastolic function is indeterminate on the basis of available data. Right Ventricle Normal right ventricular cavity size and systolic function. Atria The left atrium is moderately dilated. The right atrium is normal in size. Aortic Valve There is a normal trileaflet aortic valve. There is mild calcification of the aortic valve. There is no aortic valve stenosis. There is no aortic valve regurgitation. Mitral Valve The mitral valve appears rheumatic. There is trace mitral valve regurgitation. MeanGradient across the mitral valve 7 mm Hg at 60/min. Mitral valve area by pressure half time- 1.3 sq cm; By VTI, 1 sq cm. Overall, moderate to severe mitral stenosis. Pulmonic Valve There is trace to mild pulmonic valve regurgitation. Tricuspid Valve There is trace tricuspid valve regurgitation. There is no evidence of pulmonary hypertension. Great Vessels The asc aorta is normal in size. Venous The inferior vena cava is normal in size and collapses greater than 50% with inspiration. Pericardium/Pleural There is no evidence of pericardial effusion. Prior Study Comparison Changes noted compared to prior study dated: 06/30/2021. Progression of mitral stenosis severity. Measurements 2D Linear Measurements IVSd: 0.77 0.6-0.9/0.6-1.0 cm LVIDd: 5.75 3.9-5.3/4.2-5.9 cm LVIDd Index: 3.34 2.4-3.2/2.2-3.1 cm/m2 LVIDs: 3.78 2.0-3.6 cm LVPWd: 0.66 0.7-1.1 cm LA Diam: 4.20 2.7-3.8/3.0-4.0 cm LAIDs Index: 2.44 1.5-2.3 cm/m2 LV Mass: 186.92 67-162/88-224 g LV Mass Index: 108.67 43-95/49-115 g/m2 LVOT Diam: 2.00 3.0+(-)1.3 cm 2D Systolic Function EF 4C: 61.60 >55% EF 2C: 65.10 >55% EF BiP: 63.40 >55% Mitral Valve MV VTI: 0.67 MV Pk Kamran: 1.95 MV Mn Kamran: 1.18 MV Pk Grad: 15.00 MV Mn Grad: 7.00 MV Pk E: 1.90 MV PK A: 0.89 MV Decel Time: 530.00 E/A: 2.10 E'Lateral: 3.69 E'Medial: 4.25 E/E' Med: 44.70 E/E' Lat: 51.50 PHT: 163.00 MVA PHT: 1.35 MVA Continuity: 0.99 Decel [place]: 3.42 Aortic Valve AoV Pk Kamran: 1.78 AoV Mn Kamran: 1.22 AoV VTI: 0.41 AoV Pk Grad: 13.00 Aov Mn Grad: 7.00 LAYLA Cont.VTI: 1.62 LVOT LVOT Pk Kamran: 0.95 LVOT Mn Kamran: 0.66 LVOT VTI: 0.21 LVOT Pk Grad: 4.00 LVOT Mn Grad: 2.00 LVOT Diam: 2.00 LVOT Area: 3.14 Diastolic Function MV Pk E: 1.90 MV Pk A: 0.89 E/A: 2.10 E'Medial: 4.25 E/E' Med: 44.70 E' Laterial: 3.69 E/E' Lat: 51.50 Right Ventricle TAPSE (mm): 24.30 TVS' Kamran: 14.10 Tricuspid Valve TR Pk Kamran: 2.69 TR Pk Grad: 29.00 RA Press: 3.00 RVSP: 32.00 Great Vessels Aorta Sinus of Valsalva: 2.80 2.0-3.5 cm Ao Asc: 3.20 2.1-3.4 cm Pulmonary Veins Pulm Vein S/D 1.20 Pulmonary Valve PV Pk Kamran: 1.13 Peak PV Grad: 5.00 Updated in Other Vendor System with Status of Final Obey Bartlett MD electronically signed on 08/05/2022 12:00:53 PM with status of Final
== END ==
LOC: HO.CARD 13:41
PROVIDERS: Visit Provider Internal Medicine Cardiovascular Disease
DX: I05.0 Rheumatic mitral stenosis (principal)
CPT/HCPCS: 93306

== ENCOUNTER → 2022-08-10 13:39 | Outpatient (BNVA) | payer OTHER, SELFPAY | PROVIDERS: PCP Internal Medicine; Referring Provider Internal Medicine; Visit Provider Internal Medicine Cardiovascular Disease | DX: I05.0 Rheumatic mitral stenosis (principal); I48.0 Paroxysmal atrial fibrillation; I10 Essential (primary) hypertension | CPT/HCPCS: 93005; 99212 ==

== ENCOUNTER → 2022-08-14 14:04 | Outpatient (BNVA) | payer OTHER, SELFPAY | PROVIDERS: PCP Internal Medicine; Visit Provider Internal Medicine | DX: I48.0 Paroxysmal atrial fibrillation (principal); Z79.01 Long term (current) use of anticoagulants; Z51.81 Encounter for therapeutic drug level monitoring | CPT/HCPCS: 85610; 99211 ==

== ENCOUNTER → 2022-09-02 13:06 | Outpatient (BNVA) | payer OTHER, SELFPAY | PROVIDERS: PCP Internal Medicine; Visit Provider Internal Medicine | DX: I48.0 Paroxysmal atrial fibrillation (principal); Z51.81 Encounter for therapeutic drug level monitoring; Z79.01 Long term (current) use of anticoagulants | CPT/HCPCS: 85610; 99211 ==

== ENCOUNTER → 2022-09-22 10:30 | Outpatient (REF) | payer OTHER, SELFPAY ==
--- NOTE | 2022-09-22 10:34 | CA_ITS ---
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 Echo images obtained at rest and immediately post peak exercise. Test reviewed with Dr Medina. Referred By: Alex Kelly Overread By: STEVE ELKINS
== END ==
LOC: HO.CARD 10:30
PROVIDERS: PCP Internal Medicine; Visit Provider Internal Medicine Cardiovascular Disease
DX: I05.0 Rheumatic mitral stenosis (principal)
CPT/HCPCS: 93017; 93350

== ENCOUNTER → 2022-09-30 13:49 | Outpatient (BNVA) | payer OTHER, SELFPAY | PROVIDERS: PCP Internal Medicine; Visit Provider Internal Medicine | DX: I48.0 Paroxysmal atrial fibrillation (principal); Z79.01 Long term (current) use of anticoagulants; Z51.81 Encounter for therapeutic drug level monitoring | CPT/HCPCS: 85610; 99211 ==

== ENCOUNTER → 2022-11-06 14:09 | Outpatient (BNVA) | payer OTHER, SELFPAY | PROVIDERS: PCP Internal Medicine; Visit Provider Internal Medicine | DX: I48.0 Paroxysmal atrial fibrillation (principal); Z79.01 Long term (current) use of anticoagulants; Z51.81 Encounter for therapeutic drug level monitoring | CPT/HCPCS: 85610; 99211 ==

== ENCOUNTER → 2022-12-25 13:59 | Outpatient (BNVA) | payer OTHER, SELFPAY | PROVIDERS: PCP Internal Medicine; Visit Provider Internal Medicine | DX: I48.0 Paroxysmal atrial fibrillation (principal); Z51.81 Encounter for therapeutic drug level monitoring; Z79.01 Long term (current) use of anticoagulants | CPT/HCPCS: 85610; 99211 ==

== ENCOUNTER 2022-12-28 07:08 | Outpatient (REF) | payer OTHER, SELFPAY ==
[2022-12-28 07:19] LABS: MANUAL DIFF FLAG NO
[2022-12-28 07:38] LABS: Basophils Absolute Auto 0.1 X10*3/uL (0.0-0.2); Basophils Percent Auto 1.1 % (0-2); Eosinophils Absolute Auto 0.2 X10*3/uL (0.0-0.4); Eosinophils Percent Auto 2.8 % (0-4); Hematocrit 41.1 % (37.0-47.0); Hemoglobin 13.4 g/dl (12.0-16.0); Imm Gran Abs Auto 0.07 X10*3/uL (0.00-0.03); Imm Gran Pct Auto 0.8 % (0.0-0.4); Lymphocytes Absolute Auto 4.3 X10*3/uL (1.2-4.9); Lymphocytes Percent Auto 52.1 % (20-40); Mean Corpuscular HGB Conc 32.6 g/dl (31.0-35.0); Mean Corpuscular Hemoglobin 30.7 pg (27.0-33.0); Mean Corpuscular Volume 94.1 fL (80.0-98.0); Mean Platelet Volume 9.3 fL (9.4-12.3); Monocytes Absolute Auto 0.7 X10*3/uL (0.1-1.2); Monocytes Percent Auto 8.1 % (2-11); Neutrophils Absolute Auto 2.9 x10*3/uL (2.0-8.3); Neutrophils Percent Auto 35.1 % (45-73); Platelet Count 258 X10*3/uL (160-400); Red Blood Count 4.37 X10*6/uL (4.20-5.50); Red Cell Distribution Width 13.9 % (11.0-16.0); White Blood Count 8.3 X10*3/uL (4.8-10.8)
[2022-12-28 07:51] LABS: Estimated Average Glucose 131 mg/dL; Hemoglobin A1c % 6.2 %
[2022-12-28 08:12] LABS: Appearance Urine Clear; Color Urine Yellow; Glucose Urine UA Negative (Negative); Leukocyte Esterase Urine Trace (Negative); Nitrite Urine Negative (Negative); PH 6.5 (5.0-9.0); Specific Gravity - Urine 1.015 (1.005-1.025); UMIC TRIGGER UACC YES; Urine Blood Trace (Negative); Urine Ketones Negative (Negative); Urine Protein Negative (Neg-Trace)
[2022-12-28 08:18] LABS: Bacteria Urine None Seen (None Seen); Hyaline Casts Urine 0-2 /LPF (0-2); RBC Urine 0-2 /HPF (0-2); Squamous Epithelial Cell Urine 0-2 /HPF (0-2); WBC Urine 0-5 /HPF (0-5)
== END 2022-12-28 07:09 | disposition home or self-care (01) ==
LOC: HO.LAB 07:08
PROVIDERS: PCP Internal Medicine; Visit Provider Internal Medicine
DX: I10 Essential (primary) hypertension (principal); E11.9 Type 2 diabetes mellitus without complications
CPT/HCPCS: 36415; 80053; 80061; 81001; 82306; 83036; 84443; 85025

== ENCOUNTER 2022-12-29 06:51 | Outpatient (REF) | payer OTHER, SELFPAY ==
[2022-12-29 08:40] LABS: Alanine Aminotransferase 29 U/L (0-31); Albumin Level 4.5 g/dL (3.5-5.0); Alkaline Phosphatase 83 U/L (39-117); Anion Gap 11 (12-20); Aspartate Amino Transferase 43 U/L (5-31); Bilirubin Total 0.7 mg/dL (0.0-1.0); Blood Urea Nitrogen 18 mg/dL (9-16); Calcium 9.4 mg/dL (8.4-10.2); Carbon Dioxide 28 mmol/L (22-29); Chloride 109 mmol/L (96-108); Cholesterol 160 mg/dL; Estimated Glomerular Filt Rate > 60; Glucose Fasting 99 mg/dL (60-99); HDL Cholesterol 34 mg/dL; LDL Cholesterol Calculated 97 mg/dl; Potassium 4.2 mmol/L (3.3-5.1); Sodium 144 mmol/L (135-145); Total Protein 7.3 g/dL (6.5-8.0); Triglycerides 147 mg/dL
[2022-12-29 08:56] LABS: TSH reflex Free T4 1.98 uIU/mL (0.32-4.0); Vitamin D 25-OH Total 48.5 ng/mL (>30)
== END 2022-12-29 06:52 | disposition home or self-care (01) ==
LOC: HO.LAB 06:51
PROVIDERS: PCP Internal Medicine; Visit Provider Internal Medicine
DX: E78.00 Pure hypercholesterolemia, unspecified (principal); E55.9 Vitamin D deficiency, unspecified
CPT/HCPCS: 36415; 80053; 80061; 82306; 84443

== ENCOUNTER → 2023-01-15 13:51 | Outpatient (BNVA) | payer OTHER, SELFPAY | PROVIDERS: PCP Internal Medicine; Visit Provider Internal Medicine | DX: I48.0 Paroxysmal atrial fibrillation (principal); Z79.01 Long term (current) use of anticoagulants; Z51.81 Encounter for therapeutic drug level monitoring | CPT/HCPCS: 85610; 99211 ==

== ENCOUNTER → 2023-02-12 13:48 | Outpatient (BNVA) | payer OTHER, SELFPAY | PROVIDERS: PCP Internal Medicine; Visit Provider Internal Medicine | DX: I48.0 Paroxysmal atrial fibrillation (principal); Z79.01 Long term (current) use of anticoagulants; Z51.81 Encounter for therapeutic drug level monitoring | CPT/HCPCS: 85610; 99211 ==

== ENCOUNTER → 2023-03-04 13:27 | Outpatient (BNVA) | payer OTHER, SELFPAY | PROVIDERS: PCP Internal Medicine; Referring Provider Internal Medicine; Visit Provider Internal Medicine Cardiovascular Disease | DX: I34.2 Nonrheumatic mitral (valve) stenosis (principal); I48.0 Paroxysmal atrial fibrillation; I10 Essential (primary) hypertension | CPT/HCPCS: 93005; 99212 ==

== ENCOUNTER → 2023-03-19 13:56 | Outpatient (BNVA) | payer OTHER, SELFPAY | PROVIDERS: PCP Internal Medicine; Visit Provider Internal Medicine | DX: I48.0 Paroxysmal atrial fibrillation (principal); Z79.01 Long term (current) use of anticoagulants; Z51.81 Encounter for therapeutic drug level monitoring | CPT/HCPCS: 85610; 99211 ==

== ENCOUNTER 2023-04-23 13:55 | Outpatient (AMB) | payer OTHER, SELFPAY ==
[2023-04-23 14:12] LABS: Prothrombin Time Whole Bld POC 36.2 sec (11.1-13.5)
--- NOTE | 2023-04-23 14:24 | MHC.OFFVISCO ---
Intake Intake Visit Reasons: Anticoagulation Allergies clindamycin [CLINDAMYCIN] Allergy (Intermediate, Verified 04/23/23 14:02) RASH latex [LATEX] Allergy (Intermediate, Verified 04/23/23 14:02) RASH/ITCH codeine Allergy (Unknown, Verified 04/23/23 14:02) RASH cortisone Allergy (Unknown, Verified 04/23/23 14:02) FACIAL SWELLING hydromorphone [Dilaudid] Allergy (Unknown, Verified 04/23/23 14:02) Unknown meperidine [Demerol] Allergy (Unknown, Verified 04/23/23 14:02) Unknown morphine Allergy (Unknown, Verified 04/23/23 14:02) Unknown nifedipine Allergy (Unknown, Verified 04/23/23 14:02) Unknown silver [From TEGADERM AG MESH] Allergy (Unknown, Verified 04/23/23 14:02) RASH Penicillins Adverse Reaction (Severe, Verified 04/23/23 14:02) CHEST PAIN oxycodone [OXYCODONE] Adverse Reaction (Intermediate, Verified 04/23/23 14:02) NAUSEA & VOMITING tramadol [TRAMADOL] Adverse Reaction (Intermediate, Verified 04/23/23 14:02) LETHARGY famotidine [From Pepcid] Adverse Reaction (Mild, Verified 04/23/23 14:02) nausa levofloxacin [From LEVAQUIN] Adverse Reaction (Mild, Verified 04/23/23 14:02) arrythmia per patient cephalexin [Keflex] Adverse Reaction (Unknown, Verified 04/23/23 14:02) diarrhea ciprofloxacin [Cipro] Adverse Reaction (Unknown, Verified 04/23/23 14:02) Unknown colchicine Adverse Reaction (Unknown, Verified 04/23/23 14:02) stomach ache ibuprofen [IBUPROFEN] Adverse Reaction (Unknown, Verified 04/23/23 14:02) NAUSEA & VOMITING metronidazole [Flagyl] Adverse Reaction (Unknown, Verified 04/23/23 14:02) Unknown LOBSTER Allergy (Severe, Uncoded 04/23/23 14:02) SWELLING iv contrast Allergy (Mild, Uncoded 04/23/23 14:02) Unknown Darvocet-N 50 Allergy (Unknown, Uncoded 04/23/23 14:02) Unknown Sulfa Adverse Reaction (Unknown, Uncoded 04/23/23 14:02) diarrhea Medication List - Last Reconciled 04/23/23 by Karla Duarte RN amlodipine 7.5 mg (1.5 x 5 mg) PO DAILY 90 days celecoxib 200 mg PO DAILY PRN 90 days cholecalciferol (vitamin D3) 50 mcg PO DAILY 90 days Diovan (valsartan) 320 mg PO DAILY NS fenofibrate nanocrystallized (Tricor) 145 mg PO DAILY 90 days flecainide 100 mg PO Q12H 90 days ketotifen fumarate 0.025%(0.035%) ([place]) 1 drp ophthalmic (eye) BID PRN Lactobacillus rhamnosus GG (Culturelle) 1 cap PO DAILY 90 days metoprolol succinate ER 12.5 mg (1/2 x 25 mg) PO DAILY 90 days mometasone 0.1% 1 appl topical DAILY PRN montelukast 10 mg PO DAILY 90 days nitroglycerin 0.4 mg sublingual Q5M PRN 30 days pantoprazole 40 mg PO DAILY 90 days povidone-iodine 5% (Betadine) 1 appl topical QID PRN tetrahydrozoline 0.05% (Visine) 1 drp ophthalmic (eye) TID PRN triazolam 0.25 mg PO BEDTIME PRN 30 days warfarin 2.5 mg See Protocol PO DAILY 90 days Zyrtec (cetirizine) 10 mg PO DAILY PRN 90 days NS Nursing Note INR: 3.0 in therapeutic range Medications and supplements reviewed No changes in health, diet, medications, or supplements, Denies any signs and symptoms of bleeding or bruising or clotting. Bleeding, bruising, clotting discussed Nutritional guidance given -ATIF TODAY Dose: 2.5MG X 3 DAYS/ 1.25MG X 4 DAYS F/U INR: 1 MONTH FOR METER TRAINING Patient verbalizes understanding of instructions given Anti-Coag Initial Assessment Social Hx Patient Tobacco Use Status: Never used Tobacco alcohol intake: never Coding Level of Care Code Est Patient Level 1 Diagnoses Current use of anticoagulant therapy Z79.01 Assessment & Plan Assessment & Plan (1) Current use of anticoagulant therapy: Code(s): Z79.01 - senior care (current) use of anticoagulants Category: Medical
== END 2023-04-23 14:26 | disposition home or self-care (01) ==
LOC: HO.ACS 13:55
PROVIDERS: PCP Internal Medicine; Visit Provider Internal Medicine
DX: Z79.01 Long term (current) use of anticoagulants (principal)

== ENCOUNTER → 2023-04-23 13:55 | Outpatient (BNVA) | payer OTHER, SELFPAY | PROVIDERS: PCP Internal Medicine; Visit Provider Internal Medicine | DX: I48.0 Paroxysmal atrial fibrillation (principal); Z79.01 Long term (current) use of anticoagulants; Z51.81 Encounter for therapeutic drug level monitoring | CPT/HCPCS: 85610; 99211 ==

== ENCOUNTER 2023-06-04 12:59 | Outpatient (AMB) | payer OTHER, SELFPAY ==
--- NOTE | 2023-06-04 14:02 | MHC.OFFVISCO ---
Intake Intake Visit Reasons: Anticoagulation Allergies clindamycin [CLINDAMYCIN] Allergy (Intermediate, Verified 04/23/23 14:02) RASH latex [LATEX] Allergy (Intermediate, Verified 04/23/23 14:02) RASH/ITCH codeine Allergy (Unknown, Verified 04/23/23 14:02) RASH cortisone Allergy (Unknown, Verified 04/23/23 14:02) FACIAL SWELLING hydromorphone [Dilaudid] Allergy (Unknown, Verified 04/23/23 14:02) Unknown meperidine [Demerol] Allergy (Unknown, Verified 04/23/23 14:02) Unknown morphine Allergy (Unknown, Verified 04/23/23 14:02) Unknown nifedipine Allergy (Unknown, Verified 04/23/23 14:02) Unknown silver [From TEGADERM AG MESH] Allergy (Unknown, Verified 04/23/23 14:02) RASH Penicillins Adverse Reaction (Severe, Verified 04/23/23 14:02) CHEST PAIN oxycodone [OXYCODONE] Adverse Reaction (Intermediate, Verified 04/23/23 14:02) NAUSEA & VOMITING tramadol [TRAMADOL] Adverse Reaction (Intermediate, Verified 04/23/23 14:02) LETHARGY famotidine [From Pepcid] Adverse Reaction (Mild, Verified 04/23/23 14:02) nausa levofloxacin [From LEVAQUIN] Adverse Reaction (Mild, Verified 04/23/23 14:02) arrythmia per patient cephalexin [Keflex] Adverse Reaction (Unknown, Verified 04/23/23 14:02) diarrhea ciprofloxacin [Cipro] Adverse Reaction (Unknown, Verified 04/23/23 14:02) Unknown colchicine Adverse Reaction (Unknown, Verified 04/23/23 14:02) stomach ache ibuprofen [IBUPROFEN] Adverse Reaction (Unknown, Verified 04/23/23 14:02) NAUSEA & VOMITING metronidazole [Flagyl] Adverse Reaction (Unknown, Verified 04/23/23 14:02) Unknown LOBSTER Allergy (Severe, Uncoded 04/23/23 14:02) SWELLING iv contrast Allergy (Mild, Uncoded 04/23/23 14:02) Unknown Darvocet-N 50 Allergy (Unknown, Uncoded 04/23/23 14:02) Unknown Sulfa Adverse Reaction (Unknown, Uncoded 04/23/23 14:02) diarrhea Nursing Note METER TRAINING TODAY - DEMONSTRATED SATISFACTORY POC SKILLS WITH ACCUARACY ANS WITHOU COMPLICATIONS PT UNABLE TO STAY FOR ENTIRE TRAINING TODAY DUE TO AN APPLIANCE BEING SERVICED AT HER HOME UNEXPECTEDLY. WILL DEMONSTRATE REPORTING INR NEXT VISIT WITH TROUBLE SHOOTING THE METER INR 3.4?POC METER/ 3.2 CLINIC METER out of therapeutic range Medications and supplements reviewed Patient status: HAD A FEW DAYS NOT FEELING WELL FEW DAYS AGO - TO HAVE A PCAE MAKER REPLACEMENT IN NEAR FUTURE Medications or supplements: NO CHAGNES Diet: GOOD Denies any signs and symptoms of bleeding or clotting or unusual bruising Bleeding, bruising, clotting discussed Nutritional guidance given: EAT GREENS TODAY AND TOMORROW THEN RESUME USUAL DIET Dose: KEEP SAME DOSE FOR NOW 2.5MG X 3 DAYS/ 1.25MG X 4 DAYS F/U INR Date : 2 WEEKS ?? Patient verbalizing understanding of instructions given. Anti-Coag Initial Assessment Social Hx Patient Tobacco Use Status: Never used Tobacco alcohol intake: never Coding Level of Care Code Demo Use Home INR Diagnoses Current use of anticoagulant therapy Z79.01 Time Spent (min) 40 Comment COMPLETE EDUCATION NEXT VISIT Results AMB INR Fingerstick AMB INR Fingerstick 3.4 Last Edit by Karla Duarte RN on 06/04/23 13:50 MANUAL ENTRY Assessment & Plan Assessment & Plan (1) Current use of anticoagulant therapy: Code(s): Z79.01 - [facility] (current) use of anticoagulants Category: Medical
[2023-06-04 14:21] LABS: Prothrombin Time Whole Bld POC 38.8 sec (11.1-13.5); ~PT, ~INR - Anti Coag Clinic 3.2 (0.9-1.1)
== END 2023-06-04 14:09 | disposition home or self-care (01) ==
LOC: HO.ACS 12:59
PROVIDERS: PCP Internal Medicine; Visit Provider Internal Medicine
DX: Z79.01 Long term (current) use of anticoagulants (principal)

== ENCOUNTER → 2023-06-04 12:59 | Outpatient (BNVA) | payer OTHER, SELFPAY | PROVIDERS: PCP Internal Medicine; Visit Provider Internal Medicine | DX: I48.0 Paroxysmal atrial fibrillation (principal); Z79.01 Long term (current) use of anticoagulants; Z51.81 Encounter for therapeutic drug level monitoring | CPT/HCPCS: 85610; G0248 ==

== ENCOUNTER 2023-06-08 07:49 | Outpatient (REF) | payer OTHER, SELFPAY ==
[2023-06-08 08:11] LABS: MANUAL DIFF FLAG NO
[2023-06-08 09:01] LABS: Basophils Absolute Auto 0.1 X10*3/uL (0.0-0.2); Basophils Percent Auto 0.7 % (0-2); Eosinophils Absolute Auto 0.2 X10*3/uL (0.0-0.4); Eosinophils Percent Auto 2.2 % (0-4); Hematocrit 41.7 % (37.0-47.0); Hemoglobin 13.5 g/dl (12.0-16.0); Imm Gran Abs Auto 0.08 X10*3/uL (0.00-0.03); Imm Gran Pct Auto 0.8 % (0.0-0.4); Lymphocytes Percent Auto 37.5 % (20-40); Mean Corpuscular HGB Conc 32.4 g/dl (31.0-35.0); Mean Corpuscular Hemoglobin 30.1 pg (27.0-33.0); Mean Corpuscular Volume 93.1 fL (80.0-98.0); Mean Platelet Volume 9.5 fL (9.4-12.3); Monocytes Absolute Auto 0.8 X10*3/uL (0.1-1.2); Monocytes Percent Auto 7.5 % (2-11); Neutrophils Absolute Auto 5.4 x10*3/uL (2.0-8.3); Neutrophils Percent Auto 51.3 % (45-73); Platelet Count 243 X10*3/uL (160-400); Red Blood Count 4.48 X10*6/uL (4.20-5.50); Red Cell Distribution Width 12.6 % (11.0-16.0); White Blood Count 10.6 X10*3/uL (4.8-10.8)
[2023-06-08 09:04] LABS: Estimated Average Glucose 137 mg/dL; Hemoglobin A1c % 6.4 % (<6.0)
[2023-06-08 09:11] LABS: Appearance Urine Clear; Color Urine Yellow; Glucose Urine UA Negative (Negative); Leukocyte Esterase Urine Negative (Negative); Nitrite Urine Negative (Negative); PH 5.5 (5.0-9.0); Specific Gravity - Urine 1.015 (1.005-1.025); UMIC TRIGGER UACC YES; Urine Blood Trace (Negative); Urine Ketones Negative (Negative); Urine Protein Negative (Neg-Trace)
[2023-06-08 09:16] LABS: Bacteria Urine None Seen (None Seen); Hyaline Casts Urine 0-2 /LPF (0-2); RBC Urine 0-2 /HPF (0-2); Squamous Epithelial Cell Urine 0-2 /HPF (0-2); WBC Urine 0-5 /HPF (0-5)
[2023-06-08 09:42] LABS: Alanine Aminotransferase 30 U/L (0-31); Albumin Level 4.5 g/dL (3.5-5.0); Alkaline Phosphatase 69 U/L (39-117); Anion Gap 15 (12-20); Aspartate Amino Transferase 43 U/L (5-31); Bilirubin Total 0.7 mg/dL (0.0-1.0); Blood Urea Nitrogen 15 mg/dL (9-16); Calcium 9.5 mg/dL (8.4-10.2); Carbon Dioxide 24 mmol/L (22-29); Chloride 107 mmol/L (96-108); Cholesterol 147 mg/dL (<200); Estimated Glomerular Filt Rate > 60; Glucose Fasting 130 mg/dL (60-99); HDL Cholesterol 39 mg/dL (>40); LDL Cholesterol Calculated 80 mg/dL (<100); Potassium 4.1 mmol/L (3.3-5.1); Sodium 142 mmol/L (135-145); Total Protein 7.6 g/dL (6.5-8.0); Triglycerides 141 mg/dL (<150)
[2023-06-08 09:51] LABS: TSH reflex Free T4 2.03 uIU/mL (0.32-4.0)
== END 2023-06-08 07:50 | disposition home or self-care (01) ==
LOC: HO.LAB 07:49
PROVIDERS: PCP Internal Medicine; Visit Provider Internal Medicine
DX: E78.00 Pure hypercholesterolemia, unspecified (principal); R73.01 Impaired fasting glucose; E55.9 Vitamin D deficiency, unspecified; I10 Essential (primary) hypertension
CPT/HCPCS: 36415; 80053; 80061; 81001; 81003; 82306; 83036; 84443; 85025

== ENCOUNTER 2023-06-17 11:01 | Outpatient (AMB) | payer OTHER, SELFPAY ==
--- NOTE | 2023-06-17 11:07 | MHC.PC.OV ---
Vital Signs 06/17/23 11:08 Height 5 ft 2 in Weight 155 lb 8 oz BMI 28.4 BP 142/88 H Blood Pressure Location Lt brachial Position Sitting Pulse 65 Pulse Source Pulse Oximeter Pulse Oximetry (%) 99 Oxygen Delivery Method Room Air Intake Visit Reasons: HTN, hyperlipidemia, GERD Physical Plant Manager Required: No Accompanied by: Self / Same As Patient Allergies clindamycin [CLINDAMYCIN] Allergy (Intermediate, Verified 06/17/23 12:00) RASH latex [LATEX] Allergy (Intermediate, Verified 06/17/23 12:00) RASH/ITCH codeine Allergy (Unknown, Verified 06/17/23 12:00) RASH cortisone Allergy (Unknown, Verified 06/17/23 12:00) FACIAL SWELLING hydromorphone [Dilaudid] Allergy (Unknown, Verified 06/17/23 12:00) Unknown meperidine [Demerol] Allergy (Unknown, Verified 06/17/23 12:00) Unknown morphine Allergy (Unknown, Verified 06/17/23 12:00) Unknown nifedipine Allergy (Unknown, Verified 06/17/23 12:00) Unknown silver [From TEGADERM AG MESH] Allergy (Unknown, Verified 06/17/23 12:00) RASH Penicillins Adverse Reaction (Severe, Verified 06/17/23 12:00) CHEST PAIN oxycodone [OXYCODONE] Adverse Reaction (Intermediate, Verified 06/17/23 12:00) NAUSEA & VOMITING tramadol [TRAMADOL] Adverse Reaction (Intermediate, Verified 06/17/23 12:00) LETHARGY famotidine [From Pepcid] Adverse Reaction (Mild, Verified 06/17/23 12:00) nausa levofloxacin [From LEVAQUIN] Adverse Reaction (Mild, Verified 06/17/23 12:00) arrythmia per patient cephalexin [Keflex] Adverse Reaction (Unknown, Verified 06/17/23 12:00) diarrhea ciprofloxacin [Cipro] Adverse Reaction (Unknown, Verified 06/17/23 12:00) Unknown colchicine Adverse Reaction (Unknown, Verified 06/17/23 12:00) stomach ache ibuprofen [IBUPROFEN] Adverse Reaction (Unknown, Verified 06/17/23 12:00) NAUSEA & VOMITING metronidazole [Flagyl] Adverse Reaction (Unknown, Verified 06/17/23 12:00) Unknown LOBSTER Allergy (Severe, Uncoded 06/17/23 12:00) SWELLING iv contrast Allergy (Mild, Uncoded 06/17/23 12:00) Unknown Darvocet-N 50 Allergy (Unknown, Uncoded 06/17/23 12:00) Unknown Sulfa Adverse Reaction (Unknown, Uncoded 06/17/23 12:00) diarrhea Medication List - Last Reconciled 06/17/23 by Chandana Cottrell MD amlodipine 7.5 mg (1.5 x 5 mg) PO DAILY 90 days celecoxib 200 mg PO DAILY PRN 90 days cholecalciferol (vitamin D3) 50 mcg PO DAILY 90 days Diovan (valsartan) 320 mg PO DAILY NS fenofibrate nanocrystallized (Tricor) 145 mg PO DAILY 90 days flecainide 100 mg PO Q12H 90 days ketotifen fumarate 0.025%(0.035%) ([place]) 1 drp ophthalmic (eye) BID PRN Lactobacillus rhamnosus GG (Culturelle) 1 cap PO DAILY 90 days metoprolol succinate ER 12.5 mg (1/2 x 25 mg) PO DAILY 90 days mometasone 0.1% 1 appl topical DAILY PRN montelukast 10 mg PO DAILY 90 days nitroglycerin 0.4 mg sublingual Q5M PRN 30 days pantoprazole 40 mg PO DAILY 90 days povidone-iodine 5% (Betadine) 1 appl topical QID PRN tetrahydrozoline 0.05% (Visine) 1 drp ophthalmic (eye) TID PRN triazolam 0.25 mg PO BEDTIME PRN 30 days warfarin 2.5 mg See Protocol PO DAILY 90 days Zyrtec (cetirizine) 10 mg PO DAILY PRN 90 days NS Tobacco use date assessed: 06/17/23 Fall risk assessment: No Falls in past year Last assessed Fall Risk: 06/17/23 Dental Screening Dental Screen Date: 06/17/23 Did you have a dental visit in the last 12 months?: Yes Did you have a dental problem in the last 6 months where you did not have access to dental care?: No Was dental information given to patient?: Patient has dentist HPI HTN, hyperlipidemia, GERD HPI Details Patient comes in today for her follow up visit States that she feels okay She denies any headaches or dizziness Denies any chest pains, no SOB No nausea/vomiting, no abdominal pain No change in bowel habits noted Had her follow up labs done last week - to discuss her results Would also like to get her flu shot today PFS Medical History Type 2 diabetes mellitus Asthma Overweight (BMI 25.0-29.9) Mitral stenosis Renal cell carcinoma of right kidney GERD without esophagitis Anxiety Osteoarthritis of left knee Impaired fasting glucose Paroxysmal atrial fibrillation Benign essential hypertension Mixed hyperlipidemia Surgical History S/P cardiac cath (~08/2020) History of right nephrectomy History of surgery History of surgery H/O nephrostomy H/O cardiac radiofrequency ablation History of tooth extraction History of hysterectomy History of section Family History Father Cancer Mother Stroke Hypertension Sister Cancer Social History Housing: House Alcohol intake: never Patient Tobacco Use Status: Never used Tobacco e-Cigarette/Vaping Use: Never Used Second Hand Smoke Exposure: Yes service: No Current occupational status: retired Cognitive needs: No Hearing needs: No Vision needs: No Questionnaire PHQ-9 Over the last 2 weeks, how often have you been bothered by any of the following problems? 1. Little interest or pleasure in doing things: not at all 2. Feeling down, depressed, or hopeless: not at all 3. Trouble falling or staying asleep, or sleeping too much: not at all 4. Feeling tired or having little energy: not at all 5. Poor appetite or overeating: not at all 6. Feeling bad about yourself - or that you are a failure or have let yourself or your family down: not at all 7. Trouble concentrating on things, such as reading the newspaper or watching television: not at all 8. Moving or speaking so slowly that other people could have noticed. Or the opposite - being so fidgety or restless that you have been moving around a lot more than usual: not at all 9. Thoughts that you would be better off or of hurting yourself in some way: not at all Total score: 0 Depression Screening Interpretation: Negative Depression Screening Done: Yes [id number] - PHQ-9 Billing: Yes Source: Developed by Sandra [employer] and colleagues, with an educational veto from [employer]. Thrive Questionnaire Date Thrive assessed: 06/17/23 I am a: Patient What is your living situation today?: I have a steady place to live Within the past 12 months, did the food you bought not last and you didn't have the money to get more?: Never true Within the past 12 months, did you worry whether your food would run out before you got money to buy more?: Never true Do you have trouble paying for medicines?: No Do you have trouble getting transportation to medical appointments?: No Do you have trouble paying your heating and electricity bill?: No Do you have trouble taking care of your child, family member or friend?: No Do you have trouble with day-to-day activities such as bathing, preparing meals, shopping, managing finances, etc.?: No Are you currently unemployed and looking for a job?: No Are you interested in more education?: No Please select the resources that you would like help with: None Currently or been in a relationship where the following occur: no concerns reported AUDIT C Alcohol Use Questionnaire (AUDIT-C) 1. How often do you have a drink containing alcohol?: Never 3. How often do you have six or more drinks on one occasion?: Never Total Score: 0 Score Reviewed/Action Taken: Yes MACO-7 AMB Questionnaire MACO-7 Date MACO - 7 assessed: 06/17/23 Feeling nervous, anxious, or on edge: 0 = Not at all Not being able to stop or control worryin = Not at all Worrying too much about different things: 0 = Not at all Trouble relaxin = Not at all Being so restless that it is hard to sit still: 0 = Not at all Becoming easily annoyed or irritable: 0 = Not at all Feeling afraid as if something awful might happen: 0 = Not at all Total MACO-7 score (0-4 normal; 5-9 mild; 10-14 moderate; 15-21 severe): 0 Source: Developed by Sandra [employer]enke and colleagues, with an educational veto from [employer]. Review of Systems Const Denies chills, Denies fatigue, Denies fever(s) and Denies headache(s) ENT Denies dysphagia, Denies dizziness, Denies otalgia, Denies headache(s), Denies neck pain, Denies odynophagia and Denies sore throat Card Denies chest pain, Denies palpitations and Denies dyspnea Resp Denies cough and Denies dyspnea GI Denies abdominal pain, Denies constipation, Denies dysphagia, Denies heartburn, Denies diarrhea, Denies nausea, Denies odynophagia and Denies vomiting Denies difficulty voiding, Denies nocturia and Denies dysuria Musc Denies neck pain Skin/Breast Denies rash Neuro Denies dizziness and Denies headache(s) Endo Denies fatigue and Denies palpitations Physical exam (Primary Care) Vital Signs: Last Vital Signs Pulse 65 06/17/23 11:08 BP 142/88 H 06/17/23 11:08 Pulse Ox 99 06/17/23 11:08 Oxygen Delivery Method Room Air 06/17/23 11:08 BMI result Body Mass Index 28.4 Tobacco/Smoking Status: Tobacco use Status Tobacco use date assessed 06/17/23 06/17/23 11:09 Patient Tobacco Use Status Never used Tobacco 06/17/23 11:09 e-Cigarette/Vaping Use Never Used 06/17/23 11:09 PHQ-9: PHQ-9 Score PHQ-9: Total score 0 06/17/23 12:14 Depression Screening Interpretation: Negative Thrive Assessment: Date of Thrive Assessment Date Thrive assessed 06/17/23 06/17/23 11:09 Currently or been in a relationship where the following occur: no concerns reported Const General: no acute distress and alert HENMT Ears: TM's normal bilaterally and EAC's normal Throat: Yes posterior oropharynx normal and Yes tonsils normal (no TP congestion noted) Neck Neck: Yes no lymphadenopathy and Yes supple Resp Auscultation: clear to auscultation bilaterally, no rales and no wheezes Cardio Rate: regular rate Rhythm: regular rhythm Heart sounds: no murmurs GI Palpation (GI): Soft to palpation and nontender Auscultation: normal bowel sounds Extrem General: Yes no clubbing, cyanosis or edema Office Procedures Flu Questionnaire Does the patient have a severe egg allergy?: No Does the patient have severe life threatening allergies?: No Does the patient have a fever or illness today?: No Has the patient ever had Guillain-[place] Syndrome?: No Immunizations flu vacc [id number] 6mos up(PF) 60 mcg(15 mcgx4)/0.5 mL IM syringe Performing Provider: Chandana Cottrell MD [facility] Administered by: Kayla Meyers on 06/17/23 12:14 Dose Route Admin Location Dispensed Lot Number Expiration Date NDC Anode Rebuilder 0.5 mL IM Right Deltoid 0.5 mL [id number] 03/12/24 [id number] [place] VIS Given Date VIS Provided VIS Publication Date 06/17/23 Single Vaccine 21 Eligibility Eligibility Date Funding Source Not VFC Eligible 06/17/23 Private Results Reviewed Results Reviewed: Laboratory Tests 06/08/23 06/08/23 06/08/23 08:09 08:09 08:10 WBC 10.6 Hgb 13.5 Hct 41.7 Plt Count 243 Sodium 142 Potassium 4.1 Creatinine 0.81 Estimated GFR > 60 Fasting Glucose 130 H Hemoglobin A1c % Calcium AST ALT 30 Triglycerides 141 Cholesterol 147 LDL Cholesterol, Calc 80 HDL Cholesterol 39 L 25-OH Vitamin D Total 52.0 TSH 2.03 Ur Specific [place] 1.015 Urine Protein Negative Urine Glucose (UA) Negative Urine Blood Trace H 06/08/23 06/08/23 08:10 08:10 WBC Hgb Hct Plt Count Sodium Potassium Creatinine Estimated GFR Fasting Glucose Hemoglobin A1c % 6.4 H Calcium 9.5 AST 43 H ALT Triglycerides Cholesterol LDL Cholesterol, Calc HDL Cholesterol 25-OH Vitamin D Total TSH Ur Specific [place] Urine Protein Urine Glucose (UA) Urine Blood Assessment and Plan Assessment & Plan (1) Mixed hyperlipidemia: Code(s): E78.2 - Mixed hyperlipidemia Plan: Results of her labs done last week reviewed and discussed with patient Reinforced low cholesterol diet Continue Fenofibrate 145 mg daily Will recheck her labs and fasting lipids in 6 months for follow up (2) Type 2 diabetes mellitus: Code(s): E11.9 - Type 2 diabetes mellitus without complications Qualifiers: Diabetes mellitus complication status: without complication Diabetes mellitus usp insulin use: without terminal carman use Qualified Code(s): E11.9 - Type 2 diabetes mellitus without complications Plan: HgbA1c was at 6.3% on her labs done last week (was at 6.2% a few months ago) - goal is <6.5% Reinforced diabetic diet/ exercise as tolerated Still wishes to hold off on starting diabetic medications if possible (3) Benign essential hypertension: Code(s): I10 - Essential (primary) hypertension Plan: Reinforced low-sodium diet -? goal is systolic BP of 120 mm or less Continue Valsartan 320 mg QD, Amlodipine 7.5 mg QD and Metoprolol ER 25 mg 1/2 tablet QD (4) Paroxysmal atrial fibrillation: Comment: S/P ablation Code(s): I48.0 - Paroxysmal atrial fibrillation Plan: S/P ablation; patient currently remains in sinus rhythm Continue Fleicanide 100 mg Q 12 hours; is also on Metoprolol ER 12.5 mg QD and Amlodipine 7.5 mg QD Continue lifelong daily anticoagulation with Coumadin Follow up with cardiology as scheduled (5) Mitral stenosis: Code(s): I05.0 - Rheumatic mitral stenosis Qualifiers: Cardiac valve disease etiology: nonrheumatic Qualified Code(s): I34.2 - Nonrheumatic mitral (valve) stenosis Plan: Stress echocardiogram done in September 2022 revealed findings suggestive of severe mitral valve stenosis Patient advised that she will be needing a mitral valve surgery soon, either PMBC, repair or replacement She was seen by Dr. Gallegos in March 2023 and recommended to undergo valvuloplasty She has a follow up appt coming up and is agreeable to getting valve repair done and will be starting preparations for this soon (6) Asthma: Code(s): J45.909 - Unspecified asthma, uncomplicated Qualifiers: Asthma complication type: uncomplicated Asthma persistence: intermittent Asthma severity: mild Qualified Code(s): J45.20 - Mild intermittent asthma, uncomplicated Plan: Stable - continue Montelukast 10 mg Q PM Patient has NOT had to and does not like to use any asthma inhalers - states that she often develops side effects when she used her asthma inhalers in the past Notes that her asthma has been well-controlled for years on Montelukast alone (7) GERD without esophagitis: Code(s): K21.9 - Gastro-esophageal reflux disease without esophagitis Plan: Dietary restrictions reinforced Continue Pantoprazole 40 mg QD (8) Osteoarthritis of left knee: Code(s): M17.12 - Unilateral primary osteoarthritis, left knee Qualifiers: Osteoarthritis type: primary Qualified Code(s): M17.12 - Unilateral primary osteoarthritis, left knee Plan: Continue Celecoxib 200 mg QD with food PRN Follow up with orthopedics as needed (9) Anxiety: Code(s): F41.9 - Anxiety disorder, unspecified Plan: Continue Triazolam 0.25 mg once a day at bedtime as needed (10) Overweight (BMI 25.0-29.9): Code(s): E66.3 - Overweight Plan: Reinforced diet/exercise as tolerated/lose weight Plan Flu vaccine given today Follow up in 6 months Orders: Orders Complete Blood Count Auto Diff 6 Months I10 - Essential (primary) hypertension Lipid Panel 6 Months E78.00 - Pure hypercholesterolemia, unspecified TSH reflex Free T4 6 Months E78.00 - Pure hypercholesterolemia, unspecified Microalbumin, Random (w Creat) 6 Months E11.9 - Type 2 diabetes mellitus without complications Influenza [id number] Immunization Today Z23 - Encounter for immunization Comprehensive [place]. Panel Fast 6 Months E78.00 - Pure hypercholesterolemia, unspecified Hemoglobin A1c 6 Months E11.9 - Type 2 diabetes mellitus without complications UA CC w/rflx Micro + Cult 6 Months R30.0 - Dysuria Vitamin D 25-OH Total 6 Months E55.9 - Vitamin D deficiency, unspecified Coding Level of Care Code Est Pt Level 4 (50513) Diagnoses Mixed hyperlipidemia E78.2 Type 2 diabetes mellitus without complication, without long-term current use of insulin E11.9 Diabetes mellitus complication status: without complication Diabetes mellitus terminal carman insulin use: without terminal carman use Benign essential hypertension I10 Paroxysmal atrial fibrillation I48.0 Nonrheumatic mitral valve stenosis I34.2 Cardiac valve disease etiology: nonrheumatic Mild intermittent asthma without complication J45.20 Asthma complication type: uncomplicated Asthma persistence: intermittent Asthma severity: mild GERD without esophagitis K21.9 Primary osteoarthritis of left knee M17.12 Osteoarthritis type: primary Anxiety F41.9 Overweight (BMI 25.0-29.9) E66.3
[2023-06-17 11:08] VITALS: BP 142/88; PULSE 65; O2SAT 99; BMI 28.4
== END 2023-06-17 12:16 | disposition home or self-care (01) ==
PROVIDERS: Visit Provider Internal Medicine
DX: E78.2 Mixed hyperlipidemia (principal); E11.9 Type 2 diabetes mellitus without complications; I10 Essential (primary) hypertension; I48.0 Paroxysmal atrial fibrillation; I34.2 Nonrheumatic mitral (valve) stenosis; J45.20 Mild intermittent asthma, uncomplicated; K21.9 Gastro-esophageal reflux disease without esophagitis; M17.12 Unilateral primary osteoarthritis, left knee; F41.9 Anxiety disorder, unspecified; E66.3 Overweight; Z23 Encounter for immunization
CPT/HCPCS: 90471; 90686; 99214

== ENCOUNTER 2023-06-18 13:55 | Outpatient (AMB) | payer OTHER, SELFPAY ==
--- NOTE | 2023-06-18 14:51 | MHC.OFFVISCO ---
Intake Intake Visit Reasons: Anticoagulation Allergies clindamycin [CLINDAMYCIN] Allergy (Intermediate, Verified 06/18/23 14:05) RASH latex [LATEX] Allergy (Intermediate, Verified 06/18/23 14:05) RASH/ITCH codeine Allergy (Unknown, Verified 06/18/23 14:05) RASH cortisone Allergy (Unknown, Verified 06/18/23 14:05) FACIAL SWELLING hydromorphone [Dilaudid] Allergy (Unknown, Verified 06/18/23 14:05) Unknown meperidine [Demerol] Allergy (Unknown, Verified 06/18/23 14:05) Unknown morphine Allergy (Unknown, Verified 06/18/23 14:05) Unknown nifedipine Allergy (Unknown, Verified 06/18/23 14:05) Unknown silver [From TEGADERM AG MESH] Allergy (Unknown, Verified 06/18/23 14:05) RASH Penicillins Adverse Reaction (Severe, Verified 06/18/23 14:05) CHEST PAIN oxycodone [OXYCODONE] Adverse Reaction (Intermediate, Verified 06/18/23 14:05) NAUSEA & VOMITING tramadol [TRAMADOL] Adverse Reaction (Intermediate, Verified 06/18/23 14:05) LETHARGY famotidine [From Pepcid] Adverse Reaction (Mild, Verified 06/18/23 14:05) nausa levofloxacin [From LEVAQUIN] Adverse Reaction (Mild, Verified 06/18/23 14:05) arrythmia per patient cephalexin [Keflex] Adverse Reaction (Unknown, Verified 06/18/23 14:05) diarrhea ciprofloxacin [Cipro] Adverse Reaction (Unknown, Verified 06/18/23 14:05) Unknown colchicine Adverse Reaction (Unknown, Verified 06/18/23 14:05) stomach ache ibuprofen [IBUPROFEN] Adverse Reaction (Unknown, Verified 06/18/23 14:05) NAUSEA & VOMITING metronidazole [Flagyl] Adverse Reaction (Unknown, Verified 06/18/23 14:05) Unknown LOBSTER Allergy (Severe, Uncoded 06/18/23 14:05) SWELLING iv contrast Allergy (Mild, Uncoded 06/18/23 14:05) Unknown Darvocet-N 50 Allergy (Unknown, Uncoded 06/18/23 14:05) Unknown Sulfa Adverse Reaction (Unknown, Uncoded 06/18/23 14:05) diarrhea Medication List - Last Reconciled 06/18/23 by Karla Duarte RN amlodipine 7.5 mg (1.5 x 5 mg) PO DAILY 90 days celecoxib 200 mg PO DAILY PRN 90 days cholecalciferol (vitamin D3) 50 mcg PO DAILY 90 days Diovan (valsartan) 320 mg PO DAILY NS fenofibrate nanocrystallized (Tricor) 145 mg PO DAILY 90 days flecainide 100 mg PO Q12H 90 days ketotifen fumarate 0.025%(0.035%) ([place]) 1 drp ophthalmic (eye) BID PRN Lactobacillus rhamnosus GG (Culturelle) 1 cap PO DAILY 90 days metoprolol succinate ER 12.5 mg (1/2 x 25 mg) PO DAILY 90 days mometasone 0.1% 1 appl topical DAILY PRN montelukast 10 mg PO DAILY 90 days nitroglycerin 0.4 mg sublingual Q5M PRN 30 days pantoprazole 40 mg PO DAILY 90 days povidone-iodine 5% (Betadine) 1 appl topical QID PRN tetrahydrozoline 0.05% (Visine) 1 drp ophthalmic (eye) TID PRN triazolam 0.25 mg PO BEDTIME PRN 30 days warfarin 2.5 mg See Protocol PO DAILY 90 days Zyrtec (cetirizine) 10 mg PO DAILY PRN 90 days NS Nursing Note METER TO METER TRAINING WITH SUCCESS WITH PERFORMING TECHNIQUE AND REPORTING THE INR INR: 2.7 in therapeutic range Medications and supplements reviewed No changes in health, diet, medications, or supplements, Denies any signs and symptoms of bleeding or bruising or clotting. 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
== END 2023-06-18 14:54 | disposition home or self-care (01) ==
LOC: HO.ACS 13:55
PROVIDERS: PCP Internal Medicine; Visit Provider Internal Medicine
DX: Z79.01 Long term (current) use of anticoagulants (principal)

== ENCOUNTER → 2023-06-18 13:55 | Outpatient (BNVA) | payer OTHER, SELFPAY | PROVIDERS: PCP Internal Medicine; Visit Provider Internal Medicine | DX: I48.0 Paroxysmal atrial fibrillation (principal); Z79.01 Long term (current) use of anticoagulants; Z51.81 Encounter for therapeutic drug level monitoring | CPT/HCPCS: 85610; G0248 ==

== ENCOUNTER → 2023-06-24 16:08 | Outpatient (BNVA) | payer OTHER, SELFPAY | PROVIDERS: PCP Internal Medicine; Visit Provider Internal Medicine ==

== ENCOUNTER 2023-07-09 13:51 | Outpatient (AMB) | payer OTHER, SELFPAY ==
[2023-07-09 14:08] LABS: Prothrombin Time Whole Bld POC 32.2 sec (11.1-13.5); ~PT, ~INR - Anti Coag Clinic 2.7 (0.9-1.1)
--- NOTE | 2023-07-09 14:19 | MHC.OFFVISCO ---
Intake Intake Visit Reasons: Anticoagulation Allergies clindamycin [CLINDAMYCIN] Allergy (Intermediate, Verified 07/09/23 13:52) RASH latex [LATEX] Allergy (Intermediate, Verified 07/09/23 13:52) RASH/ITCH codeine Allergy (Unknown, Verified 07/09/23 13:52) RASH cortisone Allergy (Unknown, Verified 07/09/23 13:52) FACIAL SWELLING hydromorphone [Dilaudid] Allergy (Unknown, Verified 07/09/23 13:52) Unknown meperidine [Demerol] Allergy (Unknown, Verified 07/09/23 13:52) Unknown morphine Allergy (Unknown, Verified 07/09/23 13:52) Unknown nifedipine Allergy (Unknown, Verified 07/09/23 13:52) Unknown silver [From TEGADERM AG MESH] Allergy (Unknown, Verified 07/09/23 13:52) RASH Penicillins Adverse Reaction (Severe, Verified 07/09/23 13:52) CHEST PAIN oxycodone [OXYCODONE] Adverse Reaction (Intermediate, Verified 07/09/23 13:52) NAUSEA & VOMITING tramadol [TRAMADOL] Adverse Reaction (Intermediate, Verified 07/09/23 13:52) LETHARGY famotidine [From Pepcid] Adverse Reaction (Mild, Verified 07/09/23 13:52) nausa levofloxacin [From LEVAQUIN] Adverse Reaction (Mild, Verified 07/09/23 13:52) arrythmia per patient cephalexin [Keflex] Adverse Reaction (Unknown, Verified 07/09/23 13:52) diarrhea ciprofloxacin [Cipro] Adverse Reaction (Unknown, Verified 07/09/23 13:52) Unknown colchicine Adverse Reaction (Unknown, Verified 07/09/23 13:52) stomach ache ibuprofen [IBUPROFEN] Adverse Reaction (Unknown, Verified 07/09/23 13:52) NAUSEA & VOMITING metronidazole [Flagyl] Adverse Reaction (Unknown, Verified 07/09/23 13:52) Unknown LOBSTER Allergy (Severe, Uncoded 07/09/23 13:52) SWELLING iv contrast Allergy (Mild, Uncoded 07/09/23 13:52) Unknown Darvocet-N 50 Allergy (Unknown, Uncoded 07/09/23 13:52) Unknown Sulfa Adverse Reaction (Unknown, Uncoded 07/09/23 13:52) diarrhea Medication List - Last Reconciled 07/09/23 by Karla Duarte RN amlodipine 7.5 mg (1.5 x 5 mg) PO DAILY 90 days celecoxib 200 mg PO DAILY PRN 90 days cholecalciferol (vitamin D3) 50 mcg PO DAILY 90 days Diovan (valsartan) 320 mg PO DAILY NS fenofibrate nanocrystallized (Tricor) 145 mg PO DAILY 90 days flecainide 100 mg PO Q12H 90 days ketotifen fumarate 0.025%(0.035%) ([place]) 1 drp ophthalmic (eye) BID PRN Lactobacillus rhamnosus GG (Culturelle) 1 cap PO DAILY 90 days metoprolol succinate ER 12.5 mg (1/2 x 25 mg) PO DAILY 90 days mometasone 0.1% 1 appl topical DAILY PRN montelukast 10 mg PO DAILY 90 days nitroglycerin 0.4 mg sublingual Q5M PRN 30 days pantoprazole 40 mg PO DAILY 90 days povidone-iodine 5% (Betadine) 1 appl topical QID PRN tetrahydrozoline 0.05% (Visine) 1 drp ophthalmic (eye) TID PRN triazolam 0.25 mg PO BEDTIME PRN 30 days warfarin 2.5 mg See Protocol PO DAILY 90 days Zyrtec (cetirizine) 10 mg PO DAILY PRN 90 days NS Nursing Note METER TRAINIG REVIEW WITH GOOD DEMONSTRATION , IF PT NEEDS NIECE WILL HELP INR: 2.7 in therapeutic range Medications and supplements reviewed No changes in health, diet, medications, or supplements, Denies any signs and symptoms of bleeding or bruising or clotting. Bleeding, bruising, clotting discussed Nutritional guidance given EAT A MIX Dose: KEEP SAME 2.5MG X 3 DAYS, 1.25MG X 4 DAYS F/U INR: 2 WEEKS CALL WITH ANY DENTAL PROCEDURES Patient verbalizes understanding of instructions given Anti-Coag Initial Assessment Social Hx Patient Tobacco Use Status: Never used Tobacco alcohol intake: never Coding Level of Care Code Est Patient Level 1 Diagnoses Current use of anticoagulant therapy Z79.01 Assessment & Plan Assessment & Plan (1) Current use of anticoagulant therapy: Code(s): Z79.01 - nursing home (current) use of anticoagulants Category: Medical
== END 2023-07-09 14:25 | disposition home or self-care (01) ==
LOC: HO.ACS 13:51
PROVIDERS: PCP Internal Medicine; Visit Provider Internal Medicine
DX: Z79.01 Long term (current) use of anticoagulants (principal)

== ENCOUNTER → 2023-07-09 13:51 | Outpatient (BNVA) | payer OTHER, SELFPAY | PROVIDERS: PCP Internal Medicine; Visit Provider Internal Medicine | DX: I48.0 Paroxysmal atrial fibrillation (principal); Z79.01 Long term (current) use of anticoagulants; Z51.81 Encounter for therapeutic drug level monitoring | CPT/HCPCS: 85610; 99211 ==

== ENCOUNTER → 2023-07-26 14:50 | Outpatient (BNVA) | payer OTHER, SELFPAY | PROVIDERS: PCP Internal Medicine; Visit Provider Internal Medicine ==

== ENCOUNTER 2023-08-03 08:40 | Outpatient (REF) | payer MEDICARE, MEDICAID, SELFPAY ==
[2023-08-03 09:38] LABS: Hematocrit 42.1 % (37.0-47.0); Hemoglobin 13.5 g/dl (12.0-16.0); Mean Corpuscular HGB Conc 32.1 g/dl (31.0-35.0); Mean Corpuscular Hemoglobin 29.9 pg (27.0-33.0); Mean Corpuscular Volume 93.3 fL (80.0-98.0); Mean Platelet Volume 9.4 fL (9.4-12.3); Platelet Count 291 X10*3/uL (160-400); Red Blood Count 4.51 X10*6/uL (4.20-5.50); Red Cell Distribution Width 12.4 % (11.0-16.0); White Blood Count 7.9 X10*3/uL (4.8-10.8)
[2023-08-03 09:47] LABS: INTERNATIONAL NORM RATIO 2.7 (0.9-1.1); Prothrombin Time 32.9 SEC (11.1-13.3)
[2023-08-03 10:04] LABS: Anion Gap 10 (12-20); Blood Urea Nitrogen 20 mg/dL (9-16); Calcium 9.3 mg/dL (8.4-10.2); Carbon Dioxide 29 mmol/L (22-29); Chloride 109 mmol/L (96-108); Estimated Glomerular Filt Rate > 60; Glucose Random 121 mg/dL (60-115); Potassium 4.3 mmol/L (3.3-5.1); Sodium 144 mmol/L (135-145)
== END 2023-08-03 08:41 | disposition home or self-care (01) ==
LOC: HO.LAB 08:40
PROVIDERS: PCP Internal Medicine; Visit Provider Internal Medicine Cardiovascular Disease
DX: I48.0 Paroxysmal atrial fibrillation (principal); I10 Essential (primary) hypertension; R94.39 Abnormal result of other cardiovascular function study
CPT/HCPCS: 36415; 80048; 85027; 85610

== ENCOUNTER → 2023-08-04 13:30 | Outpatient (BNVA) | payer MEDICARE, MEDICAID, SELFPAY | PROVIDERS: PCP Internal Medicine; Visit Provider Internal Medicine ==

== ENCOUNTER 2023-08-18 13:33 | Outpatient (AMB) | payer MEDICARE, MEDICAID, SELFPAY ==
--- NOTE | 2023-08-18 13:55 | MHC.OFFVISCO ---
Intake Intake Visit Reasons: Anticoagulation Allergies clindamycin [CLINDAMYCIN] Allergy (Intermediate, Verified 08/18/23 13:35) RASH latex [LATEX] Allergy (Intermediate, Verified 08/18/23 13:35) RASH/ITCH codeine Allergy (Unknown, Verified 08/18/23 13:35) RASH cortisone Allergy (Unknown, Verified 08/18/23 13:35) FACIAL SWELLING hydromorphone [Dilaudid] Allergy (Unknown, Verified 08/18/23 13:35) Unknown meperidine [Demerol] Allergy (Unknown, Verified 08/18/23 13:35) Unknown morphine Allergy (Unknown, Verified 08/18/23 13:35) Unknown nifedipine Allergy (Unknown, Verified 08/18/23 13:35) Unknown silver [From TEGADERM AG MESH] Allergy (Unknown, Verified 08/18/23 13:35) RASH Penicillins Adverse Reaction (Severe, Verified 08/18/23 13:35) CHEST PAIN oxycodone [OXYCODONE] Adverse Reaction (Intermediate, Verified 08/18/23 13:35) NAUSEA & VOMITING tramadol [TRAMADOL] Adverse Reaction (Intermediate, Verified 08/18/23 13:35) LETHARGY famotidine [From Pepcid] Adverse Reaction (Mild, Verified 08/18/23 13:35) nausa levofloxacin [From LEVAQUIN] Adverse Reaction (Mild, Verified 08/18/23 13:35) arrythmia per patient cephalexin [Keflex] Adverse Reaction (Unknown, Verified 08/18/23 13:35) diarrhea ciprofloxacin [Cipro] Adverse Reaction (Unknown, Verified 08/18/23 13:35) Unknown colchicine Adverse Reaction (Unknown, Verified 08/18/23 13:35) stomach ache ibuprofen [IBUPROFEN] Adverse Reaction (Unknown, Verified 08/18/23 13:35) NAUSEA & VOMITING metronidazole [Flagyl] Adverse Reaction (Unknown, Verified 08/18/23 13:35) Unknown LOBSTER Allergy (Severe, Uncoded 08/18/23 13:35) SWELLING iv contrast Allergy (Mild, Uncoded 08/18/23 13:35) Unknown Darvocet-N 50 Allergy (Unknown, Uncoded 08/18/23 13:35) Unknown Sulfa Adverse Reaction (Unknown, Uncoded 08/18/23 13:35) diarrhea Medication List - Last Reconciled 08/18/23 by Karla Duarte RN amlodipine 7.5 mg (1.5 x 5 mg) PO DAILY 90 days celecoxib 200 mg PO DAILY PRN 90 days cholecalciferol (vitamin D3) 50 mcg PO DAILY 90 days Diovan (valsartan) 320 mg PO DAILY NS diphenhydramine HCl (Benadryl Allergy) 25 mg PO BID famotidine (Pepcid) 20 mg PO BID fenofibrate nanocrystallized (Tricor) 145 mg PO DAILY 90 days flecainide 100 mg PO Q12H 90 days ketotifen fumarate 0.025%(0.035%) (Alaway) 1 drp ophthalmic (eye) BID PRN Lactobacillus rhamnosus GG (Culturelle) 1 cap PO DAILY 90 days metoprolol succinate ER 12.5 mg (1/2 x 25 mg) PO DAILY 90 days mometasone 0.1% 1 appl topical DAILY PRN montelukast 10 mg PO DAILY 90 days nitroglycerin 0.4 mg sublingual Q5M PRN 30 days pantoprazole 40 mg PO DAILY 90 days povidone-iodine 5% (Betadine) 1 appl topical QID PRN prednisone 20 mg PO BID tetrahydrozoline 0.05% (Visine) 1 drp ophthalmic (eye) TID PRN triazolam 0.25 mg PO BEDTIME PRN 30 days warfarin 2.5 mg See Protocol PO DAILY 90 days Zyrtec (cetirizine) 10 mg PO DAILY PRN 90 days NS Nursing Note INR: 2.9 in therapeutic range Medications and supplements reviewed Pt to have cardiac cath 09/10/23- she will hold warfarin per [facility] cardiology: graeme wed per md orders - she said she is refuses lovenox because it made her bleed last time. she is going to have crowns placed wednesday Pt states she had blood tinged sputum when she coughed up phlem x 1 - she was enc to tell MD- she stated it is because my INR is 2.9 , she still is enc to, ACS will notify PCP also c/o of athritis all over and states she cannot go without celebrex and tylenol Bleeding, bruising, clotting discussed Nutritional guidance given - eat green today or tomorrow to lower INR slightly closer to 2.2 -2.5 for her crowns incase the jae her gums Dose: keep same dose 2.5mg x 3 days/ 1.25mg x 4 days F/U INR: 09/01/23 in 2 weeks - 1 week prior procedure then prior procedure 09/07/23 Patient verbalizes understanding of instructions given Anti-Coag Initial Assessment Social Hx Patient Tobacco Use Status: Never used Tobacco alcohol intake: never Coding Level of Care Code Est Patient Level 1 Diagnoses Current use of anticoagulant therapy Z79.01 Results AMB INR Fingerstick AMB INR Fingerstick 2.9 Last Edit by Karla Duarte RN on 08/18/23 13:51 HOME METER Assessment & Plan Assessment & Plan (1) Current use of anticoagulant therapy: Code(s): Z79.01 - watermaster (current) use of anticoagulants Category: Medical
== END 2023-08-18 14:15 | disposition home or self-care (01) ==
LOC: HO.ACS 13:33
PROVIDERS: PCP Internal Medicine; Visit Provider Internal Medicine
DX: Z79.01 Long term (current) use of anticoagulants (principal)

== ENCOUNTER → 2023-08-18 13:33 | Outpatient (BNVA) | payer OTHER, MEDICAID, SELFPAY | PROVIDERS: PCP Internal Medicine; Visit Provider Internal Medicine | DX: I48.0 Paroxysmal atrial fibrillation (principal); Z79.01 Long term (current) use of anticoagulants; Z51.81 Encounter for therapeutic drug level monitoring | CPT/HCPCS: 99211 ==

== ENCOUNTER → 2023-09-01 13:25 | Outpatient (BNVA) | payer MEDICARE, MEDICAID, SELFPAY | PROVIDERS: PCP Internal Medicine; Visit Provider Internal Medicine ==

== ENCOUNTER 2023-09-08 11:11 | Outpatient (REF) | payer OTHER, MEDICAID, SELFPAY ==
[2023-09-08 15:00] LABS: Hemoglobin 13.5 g/dl (12.0-16.0); Mean Corpuscular HGB Conc 33.8 g/dl (31.0-35.0); Mean Corpuscular Hemoglobin 31.3 pg (27.0-33.0); Mean Corpuscular Volume 92.6 fL (80.0-98.0); Platelet Count 322 X10*3/uL (160-400); Red Blood Count 4.32 X10*6/uL (4.20-5.50); Red Cell Distribution Width 12.9 % (11.0-16.0)
[2023-09-08 15:07] LABS: INTERNATIONAL NORM RATIO 1.1 (0.9-1.1); Prothrombin Time 13.9 SEC (11.1-13.3)
[2023-09-08 16:10] LABS: Anion Gap 12 (12-20); Blood Urea Nitrogen 21 mg/dL (9-16); Calcium 10.2 mg/dL (8.4-10.2); Carbon Dioxide 25 mmol/L (22-29); Chloride 106 mmol/L (96-108); Estimated Glomerular Filt Rate > 60; Glucose Random 210 mg/dL (60-115); Potassium 4.2 mmol/L (3.3-5.1); Sodium 139 mmol/L (135-145)
== END 2023-09-08 11:12 | disposition home or self-care (01) ==
LOC: HO.LAB 11:11
PROVIDERS: PCP Internal Medicine; Visit Provider Internal Medicine Cardiovascular Disease
DX: I48.0 Paroxysmal atrial fibrillation (principal); R94.39 Abnormal result of other cardiovascular function study
CPT/HCPCS: 36415; 80048; 85027; 85610

== ENCOUNTER → 2023-09-09 23:59 | Outpatient (BNV) | payer OTHER, MEDICAID, SELFPAY | PROVIDERS: PCP Internal Medicine; Visit Provider Internal Medicine Cardiovascular Disease | DX: I34.2 Nonrheumatic mitral (valve) stenosis (principal) | CPT/HCPCS: 93460; 99152 ==

== ENCOUNTER → 2023-09-15 13:45 | Outpatient (BNVA) | payer OTHER, MEDICAID, SELFPAY | PROVIDERS: PCP Internal Medicine; Visit Provider Internal Medicine ==

== ENCOUNTER 2023-09-30 11:09 | Outpatient (AMB) | payer OTHER, MEDICAID, SELFPAY ==
--- NOTE | 2023-09-30 11:14 | MHC.OFFVISCO ---
Intake Intake Visit Reasons: Anticoagulation Allergies clindamycin [CLINDAMYCIN] Allergy (Intermediate, Verified 09/30/23 11:16) RASH latex [LATEX] Allergy (Intermediate, Verified 09/30/23 11:16) RASH/ITCH codeine Allergy (Unknown, Verified 09/30/23 11:16) RASH cortisone Allergy (Unknown, Verified 09/30/23 11:16) FACIAL SWELLING hydromorphone [Dilaudid] Allergy (Unknown, Verified 09/30/23 11:16) Unknown meperidine [Demerol] Allergy (Unknown, Verified 09/30/23 11:16) Unknown morphine Allergy (Unknown, Verified 09/30/23 11:16) Unknown nifedipine Allergy (Unknown, Verified 09/30/23 11:16) Unknown silver [From TEGADERM AG MESH] Allergy (Unknown, Verified 09/30/23 11:16) RASH Penicillins Adverse Reaction (Severe, Verified 09/30/23 11:16) CHEST PAIN oxycodone [OXYCODONE] Adverse Reaction (Intermediate, Verified 09/30/23 11:16) NAUSEA & VOMITING tramadol [TRAMADOL] Adverse Reaction (Intermediate, Verified 09/30/23 11:16) LETHARGY famotidine [From Pepcid] Adverse Reaction (Mild, Verified 09/30/23 11:16) nausa levofloxacin [From LEVAQUIN] Adverse Reaction (Mild, Verified 09/30/23 11:16) arrythmia per patient cephalexin [Keflex] Adverse Reaction (Unknown, Verified 09/30/23 11:16) diarrhea ciprofloxacin [Cipro] Adverse Reaction (Unknown, Verified 09/30/23 11:16) Unknown colchicine Adverse Reaction (Unknown, Verified 09/30/23 11:16) stomach ache ibuprofen [IBUPROFEN] Adverse Reaction (Unknown, Verified 09/30/23 11:16) NAUSEA & VOMITING metronidazole [Flagyl] Adverse Reaction (Unknown, Verified 09/30/23 11:16) Unknown LOBSTER Allergy (Severe, Uncoded 09/30/23 11:16) SWELLING iv contrast Allergy (Mild, Uncoded 09/30/23 11:16) Unknown Darvocet-N 50 Allergy (Unknown, Uncoded 09/30/23 11:16) Unknown Sulfa Adverse Reaction (Unknown, Uncoded 09/30/23 11:16) diarrhea Medication List - Last Reconciled 09/30/23 by Karla Duarte RN amlodipine 7.5 mg (1.5 x 5 mg) PO DAILY 90 days celecoxib 200 mg PO DAILY PRN 90 days cholecalciferol (vitamin D3) 50 mcg PO DAILY 90 days diphenhydramine HCl (Benadryl Allergy) 25 mg PO BID diphenhydramine HCl (Banophen) mg PO famotidine (Pepcid) 20 mg PO BID fenofibrate nanocrystallized (Tricor) 145 mg PO DAILY 90 days flecainide 100 mg PO Q12H 90 days furosemide 20 mg PO DAILY ketotifen fumarate 0.025%(0.035%) (Alaway) 1 drp ophthalmic (eye) BID PRN Lactobacillus rhamnosus GG (Culturelle) 1 cap PO DAILY 90 days metoprolol succinate ER 12.5 mg (1/2 x 25 mg) PO DAILY 90 days mometasone 0.1% 1 appl topical DAILY PRN montelukast 10 mg PO DAILY 90 days nitroglycerin 0.4 mg sublingual Q5M PRN 30 days pantoprazole 40 mg PO DAILY 90 days povidone-iodine 5% (Betadine) 1 appl topical QID PRN prednisone 20 mg PO BID tetrahydrozoline 0.05% (Visine) 1 drp ophthalmic (eye) TID PRN triazolam 0.25 mg PO BEDTIME PRN 30 days valsartan (Diovan) 320 mg PO DAILY warfarin 2.5 mg See Protocol PO DAILY 90 days Zyrtec (cetirizine) 10 mg PO DAILY PRN 90 days NS Nursing Note INR: 3.0 in therapeutic range Medications and supplements reviewed STARTED LASIX FOR CHF, HAVE MORE DENTAL WORK WITH CROWNS, TO HAVE CAROTID US SOON- THEN ONCE ALL HER TEETH ARE TAKEN CARE OF SHE WILL HAVE A VALVE REPLACEMENT Denies any signs and symptoms of bleeding or bruising or clotting. Bleeding, bruising, clotting discussed Nutritional guidance given - EAT GREENS NOW BEFORE DENTAL APPT AND WEEKLY Dose: KEEP SAME FOR NOW 1/25MG X 4/ 2.5MG X SUN TUE THUR F/U INR: 2 WEEKS 10/13/23 Patient verbalizes understanding of instructions given Anti-Coag Initial Assessment Social Hx Patient Tobacco Use Status: Never used Tobacco alcohol intake: never Coding Level of Care Code Est Patient Level 1 Diagnoses Current use of anticoagulant therapy Z79.01 Results AMB INR Fingerstick AMB INR Fingerstick 3.0 Last Edit by Karla Duarte RN on 09/30/23 11:13 HOME METER Assessment & Plan Assessment & Plan (1) Current use of anticoagulant therapy: Code(s): Z79.01 - senior care (current) use of anticoagulants Category: Medical
== END 2023-09-30 11:27 | disposition home or self-care (01) ==
LOC: HO.ACS 11:09
PROVIDERS: PCP Internal Medicine; Visit Provider Internal Medicine
DX: Z79.01 Long term (current) use of anticoagulants (principal)

== ENCOUNTER → 2023-09-30 11:09 | Outpatient (BNVA) | payer OTHER, MEDICAID, SELFPAY | PROVIDERS: PCP Internal Medicine; Visit Provider Internal Medicine | DX: I48.0 Paroxysmal atrial fibrillation (principal); Z79.01 Long term (current) use of anticoagulants; Z51.81 Encounter for therapeutic drug level monitoring | CPT/HCPCS: 99211 ==

== ENCOUNTER → 2023-10-13 15:06 | Outpatient (BNVA) | payer OTHER, MEDICAID, SELFPAY | PROVIDERS: PCP Internal Medicine; Visit Provider Internal Medicine ==

== ENCOUNTER → 2023-10-20 11:14 | Outpatient (BNVA) | payer OTHER, MEDICAID, SELFPAY | PROVIDERS: PCP Internal Medicine; Visit Provider Internal Medicine ==

== ENCOUNTER → 2023-11-03 13:07 | Outpatient (BNVA) | payer OTHER, SELFPAY | PROVIDERS: PCP Internal Medicine; Visit Provider Internal Medicine ==

== ENCOUNTER → 2023-11-17 12:33 | Outpatient (BNVA) | payer OTHER, SELFPAY | PROVIDERS: PCP Internal Medicine; Visit Provider Internal Medicine ==

== ENCOUNTER → 2023-12-03 13:05 | Outpatient (BNVA) | payer OTHER, SELFPAY | PROVIDERS: PCP Internal Medicine; Visit Provider Internal Medicine ==

== ENCOUNTER → 2023-12-08 13:52 | Outpatient (BNVA) | payer OTHER, SELFPAY | PROVIDERS: PCP Internal Medicine; Visit Provider Internal Medicine ==

== ENCOUNTER → 2023-12-15 14:47 | Outpatient (BNVA) | payer OTHER, SELFPAY | PROVIDERS: PCP Internal Medicine; Visit Provider Internal Medicine ==

== ENCOUNTER → 2023-12-22 12:23 | Outpatient (BNVA) | payer OTHER, SELFPAY | PROVIDERS: PCP Internal Medicine; Visit Provider Internal Medicine ==

== ENCOUNTER 2023-12-29 13:57 | Outpatient (AMB) | payer OTHER, SELFPAY ==
[2023-12-29 14:15] LABS: Prothrombin Time Whole Bld POC 31.5 sec (11.1-13.5); ~PT, ~INR - Anti Coag Clinic 2.6 (0.9-1.1)
--- NOTE | 2023-12-29 14:32 | MHC.OFFVISCO ---
Intake Intake Visit Reasons: Anticoagulation Allergies clindamycin [CLINDAMYCIN] Allergy (Intermediate, Verified 12/29/23 14:09) RASH latex [LATEX] Allergy (Intermediate, Verified 12/29/23 14:09) RASH/ITCH codeine Allergy (Unknown, Verified 12/29/23 14:09) RASH cortisone Allergy (Unknown, Verified 12/29/23 14:09) FACIAL SWELLING hydromorphone [Dilaudid] Allergy (Unknown, Verified 12/29/23 14:09) Unknown meperidine [Demerol] Allergy (Unknown, Verified 12/29/23 14:09) Unknown morphine Allergy (Unknown, Verified 12/29/23 14:09) Unknown nifedipine Allergy (Unknown, Verified 12/29/23 14:09) Unknown silver [From TEGADERM AG MESH] Allergy (Unknown, Verified 12/29/23 14:09) RASH Penicillins Adverse Reaction (Severe, Verified 12/29/23 14:09) CHEST PAIN oxycodone [OXYCODONE] Adverse Reaction (Intermediate, Verified 12/29/23 14:09) NAUSEA & VOMITING tramadol [TRAMADOL] Adverse Reaction (Intermediate, Verified 12/29/23 14:09) LETHARGY famotidine [From Pepcid] Adverse Reaction (Mild, Verified 12/29/23 14:09) nausa levofloxacin [From LEVAQUIN] Adverse Reaction (Mild, Verified 12/29/23 14:09) arrythmia per patient cephalexin [Keflex] Adverse Reaction (Unknown, Verified 12/29/23 14:09) diarrhea ciprofloxacin [Cipro] Adverse Reaction (Unknown, Verified 12/29/23 14:09) Unknown colchicine Adverse Reaction (Unknown, Verified 12/29/23 14:09) stomach ache ibuprofen [IBUPROFEN] Adverse Reaction (Unknown, Verified 12/29/23 14:09) NAUSEA & VOMITING metronidazole [Flagyl] Adverse Reaction (Unknown, Verified 12/29/23 14:09) Unknown LOBSTER Allergy (Severe, Uncoded 12/29/23 14:09) SWELLING iv contrast Allergy (Mild, Uncoded 12/29/23 14:09) Unknown Darvocet-N 50 Allergy (Unknown, Uncoded 12/29/23 14:09) Unknown Sulfa Adverse Reaction (Unknown, Uncoded 12/29/23 14:09) diarrhea Nursing Note INR: 2.6- in therapeutic range of 2-3 Medications and supplements reviewed No changes in health, diet, medications, or supplements, Denies any signs and symptoms of bleeding or bruising or clotting. Bleeding, bruising, clotting discussed Nutritional guidance given Dose: 2.5mg x 3, 1.25mg x 4 F/U INR: 01/04/24 Patient verbalizes understanding of instructions given pt to acs today for meter to meter correlation. pt demonstrates good technique - pt meter poc inr 2.6, acs meter poc inr 2.6. memory checked on pt meter and matches. pt to have maze proc and MVR tissue valve repair and replacement at [facility] on 01/11/24. pt to hold warfarin 5 days prior to proc with lovenox bridging. lovenox inj instructions reviewed and given to pt. she states she agrees to daily lovenox while bridging. she will check poc inr on 01/04/24 and will be given lovenox instructions at that time Anti-Coag Initial Assessment Social Hx Patient Tobacco Use Status: Never used Tobacco alcohol intake: never Coding Level of Care Code Est Patient Level 2 Diagnoses Current use of anticoagulant therapy Z79.01 Assessment & Plan Assessment & Plan (1) Current use of anticoagulant therapy: Code(s): Z79.01 - residential (current) use of anticoagulants Category: Medical
== END 2023-12-29 14:36 | disposition home or self-care (01) ==
LOC: HO.ACS 13:57
PROVIDERS: PCP Internal Medicine; Visit Provider Internal Medicine
DX: Z79.01 Long term (current) use of anticoagulants (principal)

== ENCOUNTER → 2023-12-29 13:57 | Outpatient (BNVA) | payer OTHER, SELFPAY | PROVIDERS: PCP Internal Medicine; Visit Provider Internal Medicine | DX: I48.0 Paroxysmal atrial fibrillation (principal); Z79.01 Long term (current) use of anticoagulants; Z51.81 Encounter for therapeutic drug level monitoring | CPT/HCPCS: 85610; 99212 ==

== ENCOUNTER → 2024-01-04 14:29 | Outpatient (BNVA) | payer OTHER, SELFPAY | PROVIDERS: PCP Internal Medicine; Visit Provider Internal Medicine ==

== ENCOUNTER 2024-01-06 11:37 | Outpatient (AMB) | payer OTHER, SELFPAY ==
[2024-01-06 11:39] VITALS: BP 150/82; PULSE 67; O2SAT 97; BMI 28.3
--- NOTE | 2024-01-06 11:39 | A.OFFPC_ITS ---
Vital Signs 01/06/24 11:39 Height 5 ft 2 in Weight 155 lb BMI 28.3 BP 150/82 H Blood Pressure Location Lt brachial Position Sitting Pulse 67 Pulse Source Pulse Oximeter Pulse Oximetry (%) 97 Oxygen Delivery Method Room Air Intake Visit Reasons: DM, HTN, hyperlipidemia, mitral valve stenosis Intake Note: Patient is here to follow up Complex Human Resources Manager Required: No Allergies clindamycin [CLINDAMYCIN] Allergy (Intermediate, Verified 01/06/24 21:39) RASH latex [LATEX] Allergy (Intermediate, Verified 01/06/24 21:39) RASH/ITCH codeine Allergy (Unknown, Verified 01/06/24 21:39) RASH cortisone Allergy (Unknown, Verified 01/06/24 21:39) FACIAL SWELLING hydromorphone [Dilaudid] Allergy (Unknown, Verified 01/06/24 21:39) Unknown meperidine [Demerol] Allergy (Unknown, Verified 01/06/24 21:39) Unknown morphine Allergy (Unknown, Verified 01/06/24 21:39) Unknown nifedipine Allergy (Unknown, Verified 01/06/24 21:39) Unknown silver [From TEGADERM AG MESH] Allergy (Unknown, Verified 01/06/24 21:39) RASH Penicillins Adverse Reaction (Severe, Verified 01/06/24 21:39) CHEST PAIN oxycodone [OXYCODONE] Adverse Reaction (Intermediate, Verified 01/06/24 21:39) NAUSEA & VOMITING tramadol [TRAMADOL] Adverse Reaction (Intermediate, Verified 01/06/24 21:39) LETHARGY famotidine [From Pepcid] Adverse Reaction (Mild, Verified 01/06/24 21:39) nausa levofloxacin [From LEVAQUIN] Adverse Reaction (Mild, Verified 01/06/24 21:39) arrythmia per patient cephalexin [Keflex] Adverse Reaction (Unknown, Verified 01/06/24 21:39) diarrhea ciprofloxacin [Cipro] Adverse Reaction (Unknown, Verified 01/06/24 21:39) Unknown colchicine Adverse Reaction (Unknown, Verified 01/06/24 21:39) stomach ache ibuprofen [IBUPROFEN] Adverse Reaction (Unknown, Verified 01/06/24 21:39) NAUSEA & VOMITING metronidazole [Flagyl] Adverse Reaction (Unknown, Verified 01/06/24 21:39) Unknown LOBSTER Allergy (Severe, Uncoded 01/06/24 21:39) SWELLING iv contrast Allergy (Mild, Uncoded 01/06/24 21:39) Unknown Darvocet-N 50 Allergy (Unknown, Uncoded 01/06/24 21:39) Unknown Sulfa Adverse Reaction (Unknown, Uncoded 01/06/24 21:39) diarrhea Medication List - Last Reconciled 01/06/24 by Chandana Cottrell MD [ADULT PULL UPs - MEDIUM size As directed] amlodipine 7.5 mg (1.5 x 5 mg) PO DAILY 90 days celecoxib 200 mg PO DAILY PRN 90 days cholecalciferol (vitamin D3) 50 mcg PO DAILY 90 days diphenhydramine HCl (Benadryl Allergy) 25 mg PO BID diphenhydramine HCl (Banophen) mg PO doxycycline hyclate 100 mg PO BID 7 days famotidine (Pepcid) 20 mg PO BID fenofibrate nanocrystallized (Tricor) 145 mg PO DAILY 90 days flecainide 100 mg PO Q12H 90 days furosemide 20 mg PO DAILY ketotifen fumarate 0.025%(0.035%) (Alaway) 1 drp ophthalmic (eye) BID PRN Lactobacillus rhamnosus GG (Culturelle) 1 cap PO DAILY 90 days metoprolol succinate ER 12.5 mg (1/2 x 25 mg) PO DAILY 90 days mometasone 0.1% 1 appl topical DAILY PRN montelukast 10 mg PO DAILY 90 days nitroglycerin 0.4 mg sublingual Q5M PRN 30 days pantoprazole 40 mg PO DAILY 90 days povidone-iodine 5% (Betadine) 1 appl topical QID PRN prednisone 20 mg PO BID tetrahydrozoline 0.05% (Visine) 1 drp ophthalmic (eye) TID PRN triazolam 0.25 mg PO BEDTIME PRN 30 days valsartan (Diovan) 320 mg PO DAILY warfarin 2.5 mg See Protocol PO DAILY 90 days Zyrtec (cetirizine) 10 mg PO DAILY PRN 90 days NS Tobacco use date assessed: 01/06/24 Fall risk assessment: No Falls in past year Last assessed Fall Risk: 01/06/24 Dental Screening Dental Screen Date: 06/17/23 HPI DM, HTN, hyperlipidemia, mitral valve stenosis HPI Details Patient comes in today for her follow up visit States that she's had an infected tooth for a few days now and would like to get some Abx Rx to help get this under control States that she plans to call up her dentist to get an appt DIANNA to have her tooth taken care of but based on past experiences, she is aware that they would like for her to already be on Abx before they will schedule her She also originally has an appointment scheduled on 01/11/2024 for for MVR and MAZE procedure with [facility] but this was just cancelled when they found out that she currently has a dental infection She was reportedly informed that she needs to get her tooth infection taken care of first before they can reschedule her She currently denies any headaches or dizziness; denies any fever Denies any chest pains, no increased SOB No nausea/vomiting, no abdominal pain No change in bowel habits noted She would like to get her Prednisone Rx, which she takes as sort of a premedication before any procedure, refilled Adds that she has also been experiencing on and off urinary incontinence over the past few years and this has been slowly getting worse lately and she would now like to request for a prescription for Adult pull-ups - states that she has been getting them on her own for the past few months and recently found out the her insurance will cover the pull ups if they receive the Rx from her PCP She was not able to get her follow up labs done prior to her visit today [facility] Medical History (Updated 01/07/24 @ 02:55 by Chandana Cottrell MD) Vitamin D deficiency Urinary incontinence Type 2 diabetes mellitus Asthma Overweight (BMI 25.0-29.9) Mitral stenosis Renal cell carcinoma of right kidney GERD without esophagitis Anxiety Osteoarthritis of left knee Impaired fasting glucose Paroxysmal atrial fibrillation Benign essential hypertension Mixed hyperlipidemia Surgical History S/P cardiac cath (~08/2020) History of right nephrectomy History of surgery History of surgery H/O nephrostomy H/O cardiac radiofrequency ablation History of tooth extraction History of hysterectomy History of section Family History Father Cancer Mother Stroke Hypertension Sister Cancer Social History Housing: House Alcohol intake: never Patient Tobacco Use Status: Never used Tobacco e-Cigarette/Vaping Use: Never Used Second Hand Smoke Exposure: Yes service: No Current occupational status: retired Cognitive needs: No Hearing needs: No Vision needs: No Questionnaire PHQ-9 Over the last 2 weeks, how often have you been bothered by any of the following problems? 1. Little interest or pleasure in doing things: not at all 2. Feeling down, depressed, or hopeless: not at all 3. Trouble falling or staying asleep, or sleeping too much: not at all 4. Feeling tired or having little energy: not at all 5. Poor appetite or overeating: not at all 6. Feeling bad about yourself - or that you are a failure or have let yourself or your family down: not at all 7. Trouble concentrating on things, such as reading the newspaper or watching television: not at all 8. Moving or speaking so slowly that other people could have noticed. Or the opposite - being so fidgety or restless that you have been moving around a lot more than usual: not at all 9. Thoughts that you would be better off or of hurting yourself in some way: not at all Total score: 0 Depression Screening Interpretation: Negative Depression Screening Done: Yes 80226 - PHQ-9 Billing: Yes Source: Developed by Drs. Leo Quinones, Sandra Gleason, Kennedy Chau and colleagues, with an educational veto from [employer]. Thrive Questionnaire Date Thrive assessed: 01/06/24 I am a: Patient What is your living situation today?: I have a steady place to live Within the past 12 months, did the food you bought not last and you didn't have the money to get more?: Never true Within the past 12 months, did you worry whether your food would run out before you got money to buy more?: Never true Do you have trouble paying for medicines?: No Do you have trouble getting transportation to medical appointments?: No Do you have trouble paying your heating and electricity bill?: No Do you have trouble taking care of your child, family member or friend?: No Do you have trouble with day-to-day activities such as bathing, preparing meals, shopping, managing finances, etc.?: No Are you currently unemployed and looking for a job?: No Are you interested in more education?: No Please select the resources that you would like help with: None Currently or been in a relationship where the following occur: no concerns reported THRIVE Score: 0 AUDIT C Alcohol Use Questionnaire (AUDIT-C) 1. How often do you have a drink containing alcohol?: Never 3. How often do you have six or more drinks on one occasion?: Never Total Score: 0 Score Reviewed/Action Taken: Yes MACO-7 AMB Questionnaire MACO-7 Date MACO - 7 assessed: 01/06/24 Feeling nervous, anxious, or on edge: 0 = Not at all Not being able to stop or control worryin = Not at all Worrying too much about different things: 0 = Not at all Trouble relaxin = Not at all Being so restless that it is hard to sit still: 0 = Not at all Becoming easily annoyed or irritable: 0 = Not at all Feeling afraid as if something awful might happen: 0 = Not at all Total MACO-7 score (0-4 normal; 5-9 mild; 10-14 moderate; 15-21 severe): 0 Source: Developed by Drs. Leo Quinones, Sandra Gleason, Kennedy Chau and colleagues, with an educational veto from [employer]. MACO-7 Assessment Billing MACO-7 Assessment Tool: MACO-7 Assessment 06058 Review of Systems Const Denies chills, Denies fatigue, Denies fever(s) and Denies headache(s) ENT Reports dental pain (due to infection over one of her lower molars), Denies dysphagia, Denies dizziness, Denies otalgia, Denies headache(s), Denies neck pain, Denies odynophagia and Denies sore throat Card Denies chest pain, Denies palpitations and Denies dyspnea Resp Denies cough and Denies dyspnea GI Denies abdominal pain, Denies constipation, Denies dysphagia, Denies heartburn, Denies diarrhea, Denies nausea, Denies odynophagia and Denies vomiting Denies difficulty voiding, Denies nocturia, Denies dysuria and Denies urinary urgency Musc Denies back pain and Denies neck pain Skin/Breast Denies rash Neuro Denies dizziness and Denies headache(s) Endo Denies fatigue and Denies palpitations Physical exam (Primary Care) Vital Signs: Last Vital Signs Pulse 67 01/06/24 11:39 BP 150/82 H 01/06/24 11:39 Pulse Ox 97 01/06/24 11:39 Oxygen Delivery Method Room Air 01/06/24 11:39 BMI result Body Mass Index 28.3 Tobacco/Smoking Status: Tobacco use Status Tobacco use date assessed 01/06/24 01/06/24 11:41 Patient Tobacco Use Status Never used Tobacco 01/06/24 11:41 e-Cigarette/Vaping Use Never Used 01/06/24 11:41 PHQ-9: PHQ-9 Score PHQ-9: Total score 0 01/06/24 21:41 Depression Screening Interpretation: Negative Thrive Assessment: Date of Thrive Assessment Date Thrive assessed 01/06/24 01/06/24 11:41 Currently or been in a relationship where the following occur: no concerns reported Const General: no acute distress and alert HENMT Other: (+) tenderness over one of her right lower molar Ears: TM's normal bilaterally and EAC's normal Throat: Yes posterior oropharynx normal and Yes tonsils normal (no TP congestion noted) Neck Neck: Yes no lymphadenopathy and Yes supple Resp Auscultation: clear to auscultation bilaterally, no rales and no wheezes Cardio Rate: regular rate Rhythm: regular rhythm Heart sounds: no murmurs GI Palpation (GI): Soft to palpation and nontender Auscultation: normal bowel sounds Extrem General: Yes no clubbing, cyanosis or edema Results AMB Hemoglobin A1c AMB Hemoglobin A1c 6.8 % Last Edit by MILAGROS Calloway on 01/06/24 11:58 Results Reviewed Results Reviewed: Laboratory Last Values Hgb A1c (Clinic) 6.8 % (4.0-6.0) H 01/06/24 11:41 Assessment and Plan Assessment & Plan (1) Dental abscess: Code(s): K04.7 - Periapical abscess without sinus Plan: Will start patient on Doxycycline 100 mg BID x 7 days - discussed that her multiple drug allergies prevent us from starting her on more appropriate Abx and that Doxycycline is the only one of the very few antibiotics that she can take that makes sense She is reminded to try to get in to see her dentist as soon as possible as the Abx Rx will only help her temporarily (2) Mitral stenosis: Code(s): I05.0 - Rheumatic mitral stenosis Qualifiers: Cardiac valve disease etiology: nonrheumatic Qualified Code(s): I34.2 - Nonrheumatic mitral (valve) stenosis Plan: Stress echocardiogram done in September 2022 revealed findings suggestive of severe mitral valve stenosis and has been advised in the past that she will likely need mitral valve surgery soon, either PMBC, repair or replacement She was seen by Dr. Gallegos back in March 2023 and recommended to undergo valvuloplasty She was originally scheduled for for MVR and MAZE procedure with [facility] on 01/11/2024 but this was cancelled when they found out that she currently has a dental infection and she was reportedly advised that she needs to get her tooth infection taken care of first before they can reschedule her for the procedure(s) (3) Mixed hyperlipidemia: Code(s): E78.2 - Mixed hyperlipidemia Plan: She was not able to get her follow up labs done prior to her visit today Reinforced low cholesterol diet Continue Fenofibrate 145 mg QD Will recheck her labs and fasting lipids in 4 months for follow up (4) Type 2 diabetes mellitus: Code(s): E11.9 - Type 2 diabetes mellitus without complications Qualifiers: Diabetes mellitus prison insulin use: without prison use Diabetes mellitus complication status: without complication Qualified Code(s): E11.9 - Type 2 diabetes mellitus without complications Plan: Her in-office HgbA1c today is at 6.8% (HgbA1c was at 6.3% a few months ago) - g oal is <6.5% Reinforced diabetic diet/ exercise as tolerated Patient still wishes to continue holding off on taking Rx to help control her diabetes as much as possible but is advised that if she cannot get her glycemic control improved and her HgbA1c back under 6.4% over the next few months, then she should reconsider her stance then (5) Benign essential hypertension: Code(s): I10 - Essential (primary) hypertension Plan: Reinforced low-sodium diet -? goal is systolic BP of 120 mm or less Continue Valsartan 320 mg QD, Amlodipine 7.5 mg QD and Metoprolol ER 25 mg 1/2 tablet QD (6) Paroxysmal atrial fibrillation: Comment: S/P ablation Code(s): I48.0 - Paroxysmal atrial fibrillation Plan: S/P ablation; patient currently remains in sinus rhythm Continue Fleicanide 100 mg Q 12 hours; is also on Metoprolol ER 12.5 mg QD and Amlodipine 7.5 mg QD Continue lifelong daily anticoagulation with Coumadin Follow up with cardiology as scheduled (7) Asthma: Code(s): J45.909 - Unspecified asthma, uncomplicated Qualifiers: Asthma severity: mild Asthma persistence: intermittent Asthma complication type: uncomplicated Qualified Code(s): J45.20 - Mild intermittent asthma, uncomplicated Plan: Stable - continue Montelukast 10 mg Q PM Patient has NOT had to and does not like to use any asthma inhalers - states that she often develops side effects when she used her asthma inhalers in the past Notes that her asthma has been well-controlled for years on Montelukast alone (8) GERD without esophagitis: Code(s): K21.9 - Gastro-esophageal reflux disease without esophagitis Plan: Dietary restrictions reinforced Continue Pantoprazole 40 mg QD (9) Vitamin D deficiency: Code(s): E55.9 - Vitamin D deficiency, unspecified Plan: Continue Vitamin D3 2000 units QD (10) Osteoarthritis of left knee: Code(s): M17.12 - Unilateral primary osteoarthritis, left knee Qualifiers: Osteoarthritis type: primary Qualified Code(s): M17.12 - Unilateral primary osteoarthritis, left knee Plan: Continue Celecoxib 200 mg QD with food PRN Follow up with orthopedics as needed (11) Urinary incontinence: Code(s): R32 - Unspecified urinary incontinence Qualifiers: Urinary Incontinence type: unspecified incontinence Qualified Code(s): R32 - Unspecified urinary incontinence Plan: Per request, Rx for adult pull-ups provided (12) Anxiety: Code(s): F41.9 - Anxiety disorder, unspecified Plan: Continue Triazolam 0.25 mg once a day at bedtime as needed (13) Overweight (BMI 25.0-29.9): Code(s): E66.3 - Overweight Plan: Reinforced diet/exercise as tolerated/lose weight Plan Follow up in 4 months Orders: Orders Comprehensive [place]. Panel Fast 4 Months E78.00 - Pure hypercholesterolemia, unspecified Lipid Panel 4 Months E78.00 - Pure hypercholesterolemia, unspecified Hemoglobin A1c 4 Months E11.9 - Type 2 diabetes mellitus without complications Microalbumin, Random (w Creat) 4 Months E11.9 - Type 2 diabetes mellitus without complications TSH reflex Free T4 4 Months E78.00 - Pure hypercholesterolemia, unspecified UA CC w/rflx Micro + Cult 4 Months R30.0 - Dysuria AMB Hemoglobin A1c 01/06/24 E11.9 - Type 2 diabetes mellitus without complications Complete Blood Count Auto Diff 4 Months D64.9 - Anemia, unspecified Vitamin D 25-OH Total 4 Months E55.9 - Vitamin D deficiency, unspecified Medications: New doxycycline hyclate patient specifies that she wants ONLY the LIGHT BLUE CAPSULE FORMULATIONS 100 mg PO BID 7 days 14 caps 0RF [ADULT PULL UPs - MEDIUM size] As directed 100 ea 5RF R32 - Unspecified urinary incontinence Refilled prednisone For 2 days prior to the procedure and morning of procedure 20 mg PO BID 5 tabs 0RF Coding Level of Care Code Est Pt Level 4 (78140) Diagnoses Dental abscess K04.7 Nonrheumatic mitral valve stenosis I34.2 Cardiac valve disease etiology: nonrheumatic Mixed hyperlipidemia E78.2 Type 2 diabetes mellitus without complication, without long-term current use of insulin E11.9 Diabetes mellitus prison insulin use: without buttermaker use Diabetes mellitus complication status: without complication Benign essential hypertension I10 Paroxysmal atrial fibrillation I48.0 Mild intermittent asthma without complication J45.20 Asthma severity: mild Asthma persistence: intermittent Asthma complication type: uncomplicated GERD without esophagitis K21.9 Vitamin D deficiency E55.9 Primary osteoarthritis of left knee M17.12 Osteoarthritis type: primary Urinary incontinence, unspecified type R32 Urinary Incontinence type: unspecified incontinence Anxiety F41.9 Overweight (BMI 25.0-29.9) E66.3 Additional Codes MACO-7 Assessment Billing - MACO-7 Assessment Tool: MACO-7 Assessment 01540 ([id number])
== END 2024-01-06 12:33 | disposition home or self-care (01) ==
PROVIDERS: PCP Internal Medicine; Visit Provider Internal Medicine
DX: E11.9 Type 2 diabetes mellitus without complications (principal)
CPT/HCPCS: 83036; 99214

== ENCOUNTER → 2024-01-12 11:40 | Outpatient (BNVA) | payer OTHER, SELFPAY | PROVIDERS: PCP Internal Medicine; Visit Provider Internal Medicine ==

== ENCOUNTER → 2024-01-14 16:12 | Outpatient (BNVA) | payer OTHER, SELFPAY | PROVIDERS: PCP Internal Medicine; Visit Provider Internal Medicine ==

== ENCOUNTER 2024-01-18 11:39 | Outpatient (AMB) | payer OTHER, SELFPAY ==
--- NOTE | 2024-01-18 15:45 | MHC.OFFVISCO ---
Intake Intake Visit Reasons: Anticoagulation Allergies clindamycin [CLINDAMYCIN] Allergy (Intermediate, Verified 01/18/24 15:44) RASH latex [LATEX] Allergy (Intermediate, Verified 01/18/24 15:44) RASH/ITCH codeine Allergy (Unknown, Verified 01/18/24 15:44) RASH cortisone Allergy (Unknown, Verified 01/18/24 15:44) FACIAL SWELLING hydromorphone [Dilaudid] Allergy (Unknown, Verified 01/18/24 15:44) Unknown meperidine [Demerol] Allergy (Unknown, Verified 01/18/24 15:44) Unknown morphine Allergy (Unknown, Verified 01/18/24 15:44) Unknown nifedipine Allergy (Unknown, Verified 01/18/24 15:44) Unknown silver [From TEGADERM AG MESH] Allergy (Unknown, Verified 01/18/24 15:44) RASH Penicillins Adverse Reaction (Severe, Verified 01/18/24 15:44) CHEST PAIN oxycodone [OXYCODONE] Adverse Reaction (Intermediate, Verified 01/18/24 15:44) NAUSEA & VOMITING tramadol [TRAMADOL] Adverse Reaction (Intermediate, Verified 01/18/24 15:44) LETHARGY famotidine [From Pepcid] Adverse Reaction (Mild, Verified 01/18/24 15:44) nausa levofloxacin [From LEVAQUIN] Adverse Reaction (Mild, Verified 01/18/24 15:44) arrythmia per patient cephalexin [Keflex] Adverse Reaction (Unknown, Verified 01/18/24 15:44) diarrhea ciprofloxacin [Cipro] Adverse Reaction (Unknown, Verified 01/18/24 15:44) Unknown colchicine Adverse Reaction (Unknown, Verified 01/18/24 15:44) stomach ache ibuprofen [IBUPROFEN] Adverse Reaction (Unknown, Verified 01/18/24 15:44) NAUSEA & VOMITING metronidazole [Flagyl] Adverse Reaction (Unknown, Verified 01/18/24 15:44) Unknown LOBSTER Allergy (Severe, Uncoded 01/18/24 15:44) SWELLING iv contrast Allergy (Mild, Uncoded 01/18/24 15:44) Unknown Darvocet-N 50 Allergy (Unknown, Uncoded 01/18/24 15:44) Unknown Sulfa Adverse Reaction (Unknown, Uncoded 01/18/24 15:44) diarrhea Medication List - Last Reconciled 01/18/24 by Anjelica Hawthorne RN [ADULT PULL UPs - MEDIUM size As directed] amlodipine 7.5 mg (1.5 x 5 mg) PO DAILY 90 days celecoxib 200 mg PO DAILY PRN 90 days cholecalciferol (vitamin D3) 50 mcg PO DAILY 90 days diphenhydramine HCl (Benadryl Allergy) 25 mg PO BID diphenhydramine HCl (Banophen) mg PO doxycycline hyclate 100 mg PO BID 7 days famotidine (Pepcid) 20 mg PO BID fenofibrate nanocrystallized (Tricor) 145 mg PO DAILY 90 days flecainide 100 mg PO Q12H 90 days furosemide 20 mg PO DAILY ketotifen fumarate 0.025%(0.035%) (Alaway) 1 drp ophthalmic (eye) BID PRN Lactobacillus rhamnosus GG (Culturelle) 1 cap PO DAILY 90 days metoprolol succinate ER 12.5 mg (1/2 x 25 mg) PO DAILY 90 days mometasone 0.1% 1 appl topical DAILY PRN montelukast 10 mg PO DAILY 90 days nitroglycerin 0.4 mg sublingual Q5M PRN 30 days pantoprazole 40 mg PO DAILY 90 days povidone-iodine 5% (Betadine) 1 appl topical QID PRN prednisone 20 mg PO BID tetrahydrozoline 0.05% (Visine) 1 drp ophthalmic (eye) TID PRN triazolam 0.25 mg PO BEDTIME PRN 30 days valsartan (Diovan) 320 mg PO DAILY warfarin 2.5 mg See Protocol PO DAILY 90 days Zyrtec (cetirizine) 10 mg PO DAILY PRN 90 days NS Nursing Note INR received from [facility] INR is: 1.8 out of therapeutic range of 2-3 Patient indicated changes in assessment questionnaire Telephone call to patient for further assessment> Pt states she is better. Has less oral swelling and is able to eat. Medication or supplement: states course of prednisone is complete but is still on doxycycline for another 3 days Diet: usual diet Dose: 2.5mg today, tomorrow (1.25mg) and the next day Signs and symptoms of bleeding and bruising discussed Patient will go to ER with any signs and symptoms of bleeding, or clotting or unusual bruising? Retest: 01/21/24 Will recheck sooner due to potential delayed increase from doxycycline Patient verbalizes understanding of instructions given and retest date with read back Anti-Coag Initial Assessment Social Hx Patient Tobacco Use Status: Never used Tobacco alcohol intake: never Coding Level of Care Code Est Patient Level 1 Diagnoses Current use of anticoagulant therapy Z79.01 Results AMB INR Fingerstick AMB INR Fingerstick 1.8 Last Edit by Anjelica Hawthorne RN on 01/18/24 15:25 acelis Assessment & Plan Assessment & Plan (1) Current use of anticoagulant therapy: Code(s): Z79.01 - ocean transportation intermediary (current) use of anticoagulants Category: Medical
== END 2024-01-18 15:52 | disposition home or self-care (01) ==
LOC: HO.ACS 11:39
PROVIDERS: PCP Internal Medicine; Visit Provider Internal Medicine
DX: Z79.01 Long term (current) use of anticoagulants (principal)

== ENCOUNTER → 2024-01-18 11:39 | Outpatient (BNVA) | payer OTHER, SELFPAY | PROVIDERS: PCP Internal Medicine; Visit Provider Internal Medicine | DX: I48.0 Paroxysmal atrial fibrillation (principal); Z51.81 Encounter for therapeutic drug level monitoring; Z79.01 Long term (current) use of anticoagulants | CPT/HCPCS: 99211 ==

== ENCOUNTER → 2024-01-21 11:07 | Outpatient (BNVA) | payer OTHER, SELFPAY | PROVIDERS: PCP Internal Medicine; Visit Provider Internal Medicine ==

== ENCOUNTER → 2024-01-26 16:11 | Outpatient (BNVA) | payer OTHER, SELFPAY | PROVIDERS: PCP Internal Medicine; Visit Provider Internal Medicine ==

== ENCOUNTER → 2024-01-27 10:37 | Outpatient (BNVA) | payer OTHER, SELFPAY | PROVIDERS: PCP Internal Medicine; Visit Provider Internal Medicine ==

== ENCOUNTER → 2024-01-28 13:05 | Outpatient (BNVA) | payer OTHER, SELFPAY | PROVIDERS: PCP Internal Medicine; Visit Provider Internal Medicine ==

== ENCOUNTER → 2024-01-31 13:25 | Outpatient (BNVA) | payer OTHER, SELFPAY | PROVIDERS: PCP Internal Medicine; Visit Provider Internal Medicine ==

== ENCOUNTER → 2024-02-09 11:34 | Outpatient (BNVA) | payer OTHER, SELFPAY | PROVIDERS: PCP Internal Medicine; Visit Provider Internal Medicine ==

== ENCOUNTER → 2024-02-16 13:50 | Outpatient (BNVA) | payer OTHER, SELFPAY | PROVIDERS: PCP Internal Medicine; Visit Provider Internal Medicine ==

== ENCOUNTER → 2024-02-23 13:04 | Outpatient (BNVA) | payer OTHER, SELFPAY | PROVIDERS: PCP Internal Medicine; Visit Provider Internal Medicine ==

== ENCOUNTER → 2024-03-01 13:46 | Outpatient (BNVA) | payer OTHER, SELFPAY | PROVIDERS: PCP Internal Medicine; Visit Provider Internal Medicine ==

== ENCOUNTER → 2024-03-15 13:35 | Outpatient (BNVA) | payer OTHER, SELFPAY | PROVIDERS: PCP Internal Medicine; Visit Provider Internal Medicine ==

== ENCOUNTER → 2024-04-06 15:37 | Outpatient (BNVA) | payer OTHER, SELFPAY | PROVIDERS: PCP Internal Medicine; Visit Provider Internal Medicine ==

== ENCOUNTER → 2024-04-07 13:15 | Outpatient (BNVA) | payer OTHER, SELFPAY | PROVIDERS: PCP Internal Medicine; Visit Provider Internal Medicine ==

== ENCOUNTER → 2024-04-10 14:00 | Outpatient (BNVA) | payer OTHER, SELFPAY | PROVIDERS: PCP Internal Medicine; Visit Provider Internal Medicine ==

== ENCOUNTER → 2024-04-12 13:52 | Outpatient (BNVA) | payer OTHER, SELFPAY | PROVIDERS: PCP Internal Medicine; Visit Provider Internal Medicine ==

== ENCOUNTER → 2024-04-14 13:12 | Outpatient (BNVA) | payer OTHER, SELFPAY | PROVIDERS: PCP Internal Medicine; Visit Provider Internal Medicine ==

== ENCOUNTER → 2024-04-20 10:45 | Outpatient (BNVA) | payer OTHER, SELFPAY | PROVIDERS: PCP Internal Medicine; Visit Provider Internal Medicine ==

== ENCOUNTER → 2024-04-25 08:44 | Outpatient (BNVA) | payer OTHER, SELFPAY | PROVIDERS: PCP Internal Medicine; Visit Provider Internal Medicine ==

== ENCOUNTER → 2024-05-02 11:30 | Outpatient (BNVA) | payer OTHER, SELFPAY | PROVIDERS: PCP Internal Medicine; Visit Provider Internal Medicine ==

== ENCOUNTER 2024-05-08 14:02 | Outpatient (REF) | payer OTHER, SELFPAY ==
[2024-05-08 15:57] LABS: Basophils Absolute Auto 0.1 X10*3/uL (0.0-0.2); Basophils Percent Auto 0.6 % (0-2); Eosinophils Absolute Auto 0.4 X10*3/uL (0.0-0.4); Eosinophils Percent Auto 3.5 % (0-4); Estimated Average Glucose 126 mg/dL; Hematocrit 35.5 % (37.0-47.0); Imm Gran Abs Auto 0.07 X10*3/uL (0.00-0.03); Imm Gran Pct Auto 0.6 % (0.0-0.4); Lymphocytes Absolute Auto 5.2 X10*3/uL (1.2-4.9); Lymphocytes Percent Auto 44.8 % (20-40); MANUAL DIFF FLAG SCAN; Mean Corpuscular Hemoglobin 25.6 pg (27.0-33.0); Mean Corpuscular Volume 82.8 fL (80.0-98.0); Mean Platelet Volume 8.7 fL (9.4-12.3); Monocytes Absolute Auto 0.9 X10*3/uL (0.1-1.2); Monocytes Percent Auto 7.6 % (2-11); Neutrophils Percent Auto 42.9 % (45-73); Platelet Count 443 X10*3/uL (160-400); Red Blood Count 4.29 X10*6/uL (4.20-5.50); Red Cell Distribution Width 15.2 % (11.0-16.0); SCAN SMEAR FLAG 1; White Blood Count 11.6 X10*3/uL (4.8-10.8)
[2024-05-08 16:01] LABS: Appearance Urine Clear; Color Urine Yellow; Glucose Urine UA Negative (Negative); Leukocyte Esterase Urine Moderate (2+) (Negative); Nitrite Urine Negative (Negative); PH 5.5 (5.0-9.0); UMIC TRIGGER UACC YES; Urine Blood Negative (Negative); Urine Ketones Negative (Negative); Urine Protein Negative (Neg-Trace)
[2024-05-08 16:11] LABS: Bacteria Urine None Seen (None Seen); Hyaline Casts Urine 0-2 /LPF (0-2); RBC Urine 0-2 /HPF (0-2); Squamous Epithelial Cell Urine 0-2 /HPF (0-2); UACC Culture Trigger YES
[2024-05-08 16:23] LABS: SLIDE REVIEW VERIFIED
[2024-05-08 16:24] LABS: Alanine Aminotransferase 18 U/L (0-31); Albumin Level 4.5 g/dL (3.5-5.0); Alkaline Phosphatase 63 U/L (39-117); Anion Gap 14 (12-20); Aspartate Amino Transferase 38 U/L (5-31); Bilirubin Total 0.3 mg/dL (0.0-1.0); Blood Urea Nitrogen 17 mg/dL (9-16); Calcium 10.6 mg/dL (8.4-10.2); Carbon Dioxide 26 mmol/L (22-29); Chloride 104 mmol/L (96-108); Cholesterol 153 mg/dL (<200); Estimated Glomerular Filt Rate 59; Glucose Fasting 131 mg/dL (60-99); HDL Cholesterol 31 mg/dL (>40); LDL Cholesterol Calculated 64 mg/dL (<100); Sodium 140 mmol/L (135-145); Total Protein 8.1 g/dL (6.5-8.0); Triglycerides 291 mg/dL (<150)
[2024-05-08 16:39] LABS: TSH reflex Free T4 1.17 uIU/mL (0.32-4.0); Vitamin D 25-OH Total 40.1 ng/mL (>30)
[2024-05-08 16:42] LABS: Creatinine Urine 39.15 mg/dL; Microalbum/Creatinine Ratio Ur 58.7 ug/mg cr (<30)
== END 2024-05-08 14:03 | disposition home or self-care (01) ==
LOC: HO.LAB 14:02
PROVIDERS: PCP Internal Medicine; Visit Provider Internal Medicine Cardiovascular Disease
DX: D64.9 Anemia, unspecified (principal); E11.9 Type 2 diabetes mellitus without complications; E55.9 Vitamin D deficiency, unspecified; E78.00 Pure hypercholesterolemia, unspecified; Z95.2 Presence of prosthetic heart valve; I48.0 Paroxysmal atrial fibrillation; I10 Essential (primary) hypertension; R30.0 Dysuria
CPT/HCPCS: 36415; 80053; 80061; 81001; 81003; 82043; 82306; 82570; 83036; 84443; 85025; 87086; 93005; 99212

== ENCOUNTER 2024-05-08 14:02 | Outpatient (AMB) | payer OTHER, SELFPAY ==
[2024-05-08 14:08] VITALS: BP 122/76; PULSE 92; BMI 26.2
--- NOTE | 2024-05-08 14:08 | A.OFFVIS_ITS ---
Vital Signs 05/08/24 14:08 Height 5 ft 2 in Weight 143 lb 4.807 oz BMI 26.2 BP 122/76 Blood Pressure Location Lt brachial Position Sitting Pulse 92 Intake Visit Reasons: follow-up post CABG Intake Note: follow-up post CABG and MAZE c/o still recovering little weak Air And Water Filler Required: No Allergies clindamycin [CLINDAMYCIN] Allergy (Intermediate, Verified 05/02/24 12:03) RASH latex [LATEX] Allergy (Intermediate, Verified 05/02/24 12:03) RASH/ITCH codeine Allergy (Unknown, Verified 05/02/24 12:03) RASH cortisone Allergy (Unknown, Verified 05/02/24 12:03) FACIAL SWELLING hydromorphone [Dilaudid] Allergy (Unknown, Verified 05/02/24 12:03) Unknown meperidine [Demerol] Allergy (Unknown, Verified 05/02/24 12:03) Unknown morphine Allergy (Unknown, Verified 05/02/24 12:03) Unknown nifedipine Allergy (Unknown, Verified 05/02/24 12:03) Unknown silver [From TEGADERM AG MESH] Allergy (Unknown, Verified 05/02/24 12:03) RASH Penicillins Adverse Reaction (Severe, Verified 05/02/24 12:03) CHEST PAIN oxycodone [OXYCODONE] Adverse Reaction (Intermediate, Verified 05/02/24 12:03) NAUSEA & VOMITING tramadol [TRAMADOL] Adverse Reaction (Intermediate, Verified 05/02/24 12:03) LETHARGY famotidine [From Pepcid] Adverse Reaction (Mild, Verified 05/02/24 12:03) nausa levofloxacin [From LEVAQUIN] Adverse Reaction (Mild, Verified 05/02/24 12:03) arrythmia per patient cephalexin [Keflex] Adverse Reaction (Unknown, Verified 05/02/24 12:03) diarrhea ciprofloxacin [Cipro] Adverse Reaction (Unknown, Verified 05/02/24 12:03) Unknown colchicine Adverse Reaction (Unknown, Verified 05/02/24 12:03) stomach ache ibuprofen [IBUPROFEN] Adverse Reaction (Unknown, Verified 05/02/24 12:03) NAUSEA & VOMITING metronidazole [Flagyl] Adverse Reaction (Unknown, Verified 05/02/24 12:03) Unknown LOBSTER Allergy (Severe, Uncoded 05/02/24 12:03) SWELLING iv contrast Allergy (Mild, Uncoded 05/02/24 12:03) Unknown Darvocet-N 50 Allergy (Unknown, Uncoded 05/02/24 12:03) Unknown Sulfa Adverse Reaction (Unknown, Uncoded 05/02/24 12:03) diarrhea Medication List - Last Reconciled 05/08/24 by Alex Kelly MD acetaminophen 1,000 mg PO BID PRN [ADULT PULL UPs - MEDIUM size As directed] amlodipine 5 mg PO DAILY aspirin (Adult Aspirin Regimen) 81 mg PO DAILY fenofibrate nanocrystallized (Tricor) 145 mg PO DAILY 90 days flash glucose scanning reader ([employer]inburgh [employer] ImagingStyle Kiesha 2 [place]) As directed flash glucose sensor (FreeStyle Kiesha 2 Sensor kit) As directed flecainide 100 mg PO Q12H 90 days metoprolol succinate ER 25 mg PO DAILY mometasone 0.1% 1 appl topical DAILY PRN montelukast 10 mg PO DAILY 90 days pantoprazole 40 mg PO DAILY 90 days sitagliptin phosphate (Januvia) 50 mg PO DAILY 30 days tetrahydrozoline 0.05% (Visine) 1 drp ophthalmic (eye) TID PRN triazolam 0.25 mg PO BEDTIME PRN 30 days valsartan 80 mg (2 x 40 mg) PO DAILY warfarin See Protocol 2 mg orally [facility] GAVE 4MG 04/04 + /04/05; or as directed; warfarin 2.5 mg See Protocol PO DAILY HPI Comments Details: Dominga comes for follow-up. She underwent mitral valve replacement along with Maze procedure and left atrial appendage ligation in March. She is still healing from it. She continues to have discomfort at the lower sternotomy scar. Denies any prolonged palpitation irregular heartbeat. Her valsartan was reduced to 80 mg daily and her blood pressure is better controlled. She has also lost a bunch of weight. She denies any bleeding issues or neurologic events. Currently on aspirin and warfarin therapy. Denies any shortness of breath, orthopnea, PND. Has started participate in phase 2 cardiac rehabilitation [facility] Medical History Mitral stenosis Vitamin D deficiency Urinary incontinence Type 2 diabetes mellitus Asthma Overweight (BMI 25.0-29.9) Renal cell carcinoma of right kidney GERD without esophagitis Anxiety Osteoarthritis of left knee Impaired fasting glucose Paroxysmal atrial fibrillation Benign essential hypertension Mixed hyperlipidemia Surgical History Status post mitral valve replacement S/P cardiac cath (~08/2020) History of right nephrectomy History of surgery History of surgery H/O nephrostomy H/O cardiac radiofrequency ablation History of tooth extraction History of hysterectomy History of section Family History Father Cancer Mother Stroke Hypertension Sister Cancer Social History Housing: House Alcohol intake: never Patient Tobacco Use Status: Never used Tobacco e-Cigarette/Vaping Use: Never Used Second Hand Smoke Exposure: Yes service: No Current occupational status: retired Cognitive needs: No Hearing needs: No Vision needs: No Review of Systems Const Denies chills, Denies fatigue, Denies fever(s), Denies frequent falls, Denies weakness, Denies weight gain and Denies weight loss ENT Denies dizziness Card Denies chest pain, Denies leg edema, Denies lightheadedness, Denies palpitations, Denies dyspnea, Denies dyspnea on exertion, Denies orthopnea and Denies other (loss of consciousness) Resp Denies cough, Denies dyspnea and Denies dyspnea on exertion GI Denies hematochezia and Denies change in stool character Musc Denies abnormal gait, Denies muscle weakness, Denies numbness, Denies radiating pain into limb and Denies tingling Neuro Denies abnormal gait, Denies dizziness, Denies frequent falls, Denies numbness, Denies tingling and Denies weakness Endo Denies fatigue and Denies palpitations Physical Exam Vital Signs: Last Vital Signs Pulse 92 05/08/24 14:08 BP 122/76 05/08/24 14:08 BMI result Body Mass Index 26.2 Const General: cooperative, comfortable, no acute distress, alert, awake and well groomed Nutritional Appearance: overweight Orientation/consciousness: patient oriented x3 Limitations: no limitations Neck Neck: Yes trachea midline, Yes supple and Yes no JVD Chest Chest palpation & inspection: other (Sternotomy wound is healing well) Resp Effort & Inspection: normal respiratory effort Auscultation: clear to auscultation bilaterally Cardio Jugular venous distension: no JVD Palpation: normal PMI Rate: regular rate Rhythm: regular rhythm Heart sounds: S1 normal heart sound present, S2 normal heart sound present, no click, no gallops and no murmurs GI Auscultation: normal bowel sounds Skin General skin exam: no rashes or lesions noted and ecchymosis Neuro General: patient oriented x3 and no focal motor deficits Extrem General: Yes no clubbing, cyanosis or edema Psych Appearance: grossly normal Affect: Anxious affect present Office Procedures EKG Details: EKG shows normal sinus rhythm first-degree AV block with rightward axis [id number]-[id number], Complete Assessment & Plan Assessment & Plan (1) Status post mitral valve replacement: Comment: 25 mm pericardial bioprosthetic valve, March 2024 Code(s): Z95.2 - Presence of prosthetic heart valve Category: Surgical Plan: 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 Clinically doing well but healing. Continue phase 2 cardiac rehabilitation. Continue warfarin and aspirin therapy for total of 3 months postoperatively. In the long run will switch her warfarin to Rasheed oral anticoagulation therapy, see below. Aspirin will be discontinued at this point in time. Follow-up echocardiogram near future to assess for valve function current status. SBE prophylaxis as per [facility] guidelines. Discussed with her that the valve would be good for coming 10-15 years. Continue aggressive vascular risk factor modification. Blood pressure is well optimized on lower valsartan dose most likely due to loss of her body weight. Continue current therapy. Advised to monitor blood pressure at home. (2) Paroxysmal atrial fibrillation: Comment: S/P ablation. Status post Maze procedure, March 2024 in conjunction with mitral valve replacement Code(s): I48.0 - Paroxysmal atrial fibrillation Category: Medical Plan: Paroxysmal atrial fibrillation, remained suppressed status post ablation therapy as well as Maze procedure now. She is worried about needing a pacemaker. Curr ent point time discussed with her that she does not need a pacemaker. Heart rate is well controlled. Continue flecainide therapy despite Maze procedure. If remains in sinus rhythm will gradually reduce flecainide therapy. Continue concomitant metoprolol therapy. Given her significant left atrial enlargement I think she will need lifelong oral anticoagulation therapy despite left atrial appendage ligation. This was strongly encouraged. In 3 months time I would consider switching her to will direct oral anticoagulant therapy. She is agreeable to this management. (3) Benign essential hypertension: Code(s): I10 - Essential (primary) hypertension Category: Medical Plan: Blood pressure is currently well optimized advised to monitor blood pressure at home maintain a log. Goal blood pressure less than 130/84. Continue current therapy. Low-salt diet was discussed. Stress mitigation strategies was discussed. Will follow up in the clinic in 2 months time, sooner p.r.n.. Thank you for care Orders: Orders Complete Blood Count no Diff Today Z95.2 - Presence of prosthetic heart valve Medications: Refilled warfarin See Protocol 2 mg orally [facility] GAVE 4MG 04/04 + /04/05; or as directed; 60 tabs 3RF Z95.2 - Presence of prosthetic heart valve Coding Level of Care Code Est Pt Level 4 (28534) Diagnoses Status post mitral valve replacement Z95.2 Paroxysmal atrial fibrillation I48.0 Benign essential hypertension I10 CPT Codes EKG - CPT: 67652-[id number], Complete ([id number])
== END 2024-05-08 14:45 | disposition home or self-care (01) ==
PROVIDERS: PCP Internal Medicine; Visit Provider Internal Medicine Cardiovascular Disease
DX: Z95.2 Presence of prosthetic heart valve (principal); I48.0 Paroxysmal atrial fibrillation; I10 Essential (primary) hypertension
CPT/HCPCS: 93010; 99214

== ENCOUNTER → 2024-05-09 09:07 | Outpatient (BNVA) | payer OTHER, SELFPAY | PROVIDERS: PCP Internal Medicine; Visit Provider Internal Medicine ==

== ENCOUNTER → 2024-05-17 12:57 | Outpatient (BNVA) | payer OTHER, SELFPAY | PROVIDERS: PCP Internal Medicine; Visit Provider Internal Medicine ==

== ENCOUNTER 2024-05-22 09:18 | Outpatient (REF) | payer OTHER, SELFPAY ==
[2024-05-22 09:43] LABS: MANUAL DIFF FLAG NO
[2024-05-22 10:25] LABS: Basophils Absolute Auto 0.1 X10*3/uL (0.0-0.2); Basophils Percent Auto 0.9 % (0-2); Eosinophils Absolute Auto 0.4 X10*3/uL (0.0-0.4); Eosinophils Percent Auto 4.1 % (0-4); Hematocrit 35.6 % (37.0-47.0); Hemoglobin 10.9 g/dl (12.0-16.0); Lymphocytes Absolute Auto 3.5 X10*3/uL (1.2-4.9); Mean Corpuscular HGB Conc 30.6 g/dl (31.0-35.0); Mean Corpuscular Volume 81.7 fL (80.0-98.0); Mean Platelet Volume 9.3 fL (9.4-12.3); Monocytes Absolute Auto 0.9 X10*3/uL (0.1-1.2); Monocytes Percent Auto 8.7 % (2-11); Neutrophils Percent Auto 50.3 % (45-73); Platelet Count 332 X10*3/uL (160-400); Red Blood Count 4.36 X10*6/uL (4.20-5.50); Red Cell Distribution Width 15.6 % (11.0-16.0)
[2024-05-22 10:48] LABS: Appearance Urine Clear; Color Urine Yellow; Glucose Urine UA Negative (Negative); Leukocyte Esterase Urine Negative (Negative); Nitrite Urine Negative (Negative); Specific Gravity - Urine 1.015 (1.005-1.025); Urine Blood Negative (Negative); Urine Ketones Negative (Negative); Urine Protein Negative (Neg-Trace)
[2024-05-22 11:14] LABS: Alanine Aminotransferase 21 U/L (0-31); Albumin Level 4.4 g/dL (3.5-5.0); Alkaline Phosphatase 65 U/L (39-117); Anion Gap 14 (12-20); Aspartate Amino Transferase 36 U/L (5-31); Bilirubin Total 0.3 mg/dL (0.0-1.0); Blood Urea Nitrogen 16 mg/dL (9-16); Carbon Dioxide 26 mmol/L (22-29); Chloride 108 mmol/L (96-108); Cholesterol 155 mg/dL (<200); Estimated Glomerular Filt Rate > 60; Glucose Fasting 117 mg/dL (60-99); HDL Cholesterol 34 mg/dL (>40); LDL Cholesterol Calculated 84 mg/dL (<100); Potassium 4.5 mmol/L (3.3-5.1); Sodium 143 mmol/L (135-145); TSH reflex Free T4 1.95 uIU/mL (0.32-4.0); Total Protein 7.8 g/dL (6.5-8.0); Triglycerides 186 mg/dL (<150); Vitamin D 25-OH Total 39.6 ng/mL (>30)
[2024-05-22 11:48] LABS: Creatinine Urine 76.65 mg/dL; Microalbum/Creatinine Ratio Ur 24.7 ug/mg cr (<30)
[2024-05-22 11:52] LABS: Estimated Average Glucose 128 mg/dL; Hemoglobin A1c % 6.1 % (<6.0)
== END 2024-05-22 09:19 | disposition home or self-care (01) ==
LOC: HO.LAB 09:18
PROVIDERS: PCP Internal Medicine; Visit Provider Internal Medicine
DX: E78.00 Pure hypercholesterolemia, unspecified (principal); E11.9 Type 2 diabetes mellitus without complications; R30.0 Dysuria; E55.9 Vitamin D deficiency, unspecified; I10 Essential (primary) hypertension
CPT/HCPCS: 36415; 80053; 80061; 81003; 82043; 82306; 82570; 83036; 84443; 85025

== ENCOUNTER → 2024-05-24 10:26 | Outpatient (BNVA) | payer OTHER, SELFPAY | PROVIDERS: PCP Internal Medicine; Visit Provider Internal Medicine ==

== ENCOUNTER 2024-05-25 11:55 | Outpatient (AMB) | payer OTHER, SELFPAY ==
[2024-05-25 12:09] VITALS: BP 138/84; PULSE 91; O2SAT 97; BMI 26.6
--- NOTE | 2024-05-25 12:09 | A.OFFPC_ITS ---
Vital Signs 05/25/24 12:09 Height 5 ft 2 in Weight 145 lb 8 oz BMI 26.6 BP 138/84 Blood Pressure Location Lt brachial Position Sitting Pulse 91 Pulse Source Pulse Oximeter Pulse Oximetry (%) 97 Oxygen Delivery Method Room Air Intake Visit Reasons: 5mo f\u Dry Cleaner Apprentice Required: No Accompanied by: Self / Same As Patient Allergies clindamycin [CLINDAMYCIN] Allergy (Intermediate, Verified 05/28/24 06:03) RASH latex [LATEX] Allergy (Intermediate, Verified 05/28/24 06:03) RASH/ITCH codeine Allergy (Unknown, Verified 05/28/24 06:03) RASH cortisone Allergy (Unknown, Verified 05/28/24 06:03) FACIAL SWELLING hydromorphone [Dilaudid] Allergy (Unknown, Verified 05/28/24 06:03) Unknown meperidine [Demerol] Allergy (Unknown, Verified 05/28/24 06:03) Unknown morphine Allergy (Unknown, Verified 05/28/24 06:03) Unknown nifedipine Allergy (Unknown, Verified 05/28/24 06:03) Unknown silver [From TEGADERM AG MESH] Allergy (Unknown, Verified 05/28/24 06:03) RASH Penicillins Adverse Reaction (Severe, Verified 05/28/24 06:03) CHEST PAIN oxycodone [OXYCODONE] Adverse Reaction (Intermediate, Verified 05/28/24 06:03) NAUSEA & VOMITING tramadol [TRAMADOL] Adverse Reaction (Intermediate, Verified 05/28/24 06:03) LETHARGY famotidine [From Pepcid] Adverse Reaction (Mild, Verified 05/28/24 06:03) nausa levofloxacin [From LEVAQUIN] Adverse Reaction (Mild, Verified 05/28/24 06:03) arrythmia per patient cephalexin [Keflex] Adverse Reaction (Unknown, Verified 05/28/24 06:03) diarrhea ciprofloxacin [Cipro] Adverse Reaction (Unknown, Verified 05/28/24 06:03) Unknown colchicine Adverse Reaction (Unknown, Verified 05/28/24 06:03) stomach ache ibuprofen [IBUPROFEN] Adverse Reaction (Unknown, Verified 05/28/24 06:03) NAUSEA & VOMITING metronidazole [Flagyl] Adverse Reaction (Unknown, Verified 05/28/24 06:03) Unknown LOBSTER Allergy (Severe, Uncoded 05/28/24 06:03) SWELLING iv contrast Allergy (Mild, Uncoded 05/28/24 06:03) Unknown Darvocet-N 50 Allergy (Unknown, Uncoded 05/28/24 06:03) Unknown Sulfa Adverse Reaction (Unknown, Uncoded 05/28/24 06:03) diarrhea Medication List - Last Reconciled 05/28/24 by Chandana Cottrell MD acetaminophen 1,000 mg PO BID PRN acyclovir 5% 1 appl topical 6XD PRN 7 days [ADULT PULL UPs - MEDIUM size As directed] amlodipine 5 mg PO DAILY aspirin (Adult Aspirin Regimen) 81 mg PO DAILY 90 days fenofibrate nanocrystallized (Tricor) 145 mg PO DAILY 90 days flash glucose scanning reader ([employer] Kiesha 2 [place]) As directed flash glucose sensor ([employer] Kiesha 2 Sensor kit) As directed flecainide 100 mg PO Q12H 90 days metoprolol succinate ER 25 mg PO DAILY mometasone 0.1% 1 appl topical DAILY PRN montelukast 10 mg PO DAILY 90 days pantoprazole 40 mg PO DAILY 90 days sitagliptin phosphate (Januvia) 50 mg PO DAILY 90 days tetrahydrozoline 0.05% (Visine) 1 drp ophthalmic (eye) TID PRN triazolam 0.25 mg PO BEDTIME PRN 30 days valsartan 80 mg PO DAILY 90 days warfarin See Protocol 2 mg orally Take one to two tablets daily as directed by anticoagulation clinic.; 90 days warfarin 2.5 mg See Protocol PO DAILY Tobacco use date assessed: 05/25/24 Fall risk assessment: No Falls in past year Last assessed Fall Risk: 05/25/24 Dental Screening Dental Screen Date: 05/25/24 Did you have a dental visit in the last 12 months?: Yes Did you have a dental problem in the last 6 months where you did not have access to dental care?: No Was dental information given to patient?: Patient has dentist HPI 5mo f\u HPI Details Patient comes in today for her follow up visit States that she is still feeling very weak and recovering from her heart surgery in March 2024, when she underwent mitral valve replacement and left-sided MAZE procedure with amputation of the left atrial appendage on 03/28/2024 She recently just started cardiac rehab and continues to follow up with cardiology regularly She is accompanied by her daughter today, who is helping her with all of her ADLs and accompanying her to all of her appointments and treatments and her daughter brought in some FMLA papers to be filled out for this purpose She denies any headaches or dizziness Denies any chest pains but still feels SOB often with exertion No nausea/vomiting, no abdominal pain No change in bowel habits noted Patient needs a few of her Rx refilled, including Acyclovir ointment that she uses PRN for cold sores - states that she last had this filled years ago as her Rx just ran out recently She had her follow up labs done a few days ago - to discuss her results [facility] Medical History (Updated 05/28/24 @ 11:15 by Chandana Cottrell MD) Mitral stenosis Vitamin D deficiency Urinary incontinence Type 2 diabetes mellitus Asthma Overweight (BMI 25.0-29.9) Renal cell carcinoma of right kidney GERD without esophagitis Anxiety Osteoarthritis of left knee Impaired fasting glucose Paroxysmal atrial fibrillation Benign essential hypertension Mixed hyperlipidemia Surgical History (Updated 05/28/24 @ 06:31 by Chandana Cottrell MD) History of maze procedure Status post mitral valve replacement S/P cardiac cath (~08/2020) History of right nephrectomy History of surgery History of surgery H/O nephrostomy H/O cardiac radiofrequency ablation History of tooth extraction History of hysterectomy History of section Family History Father Cancer Mother Stroke Hypertension Sister Cancer Social History Housing: House Alcohol intake: never Patient Tobacco Use Status: Never used Tobacco e-Cigarette/Vaping Use: Never Used Second Hand Smoke Exposure: Yes service: No Current occupational status: retired Cognitive needs: No Hearing needs: No Vision needs: No Questionnaire PHQ-9 Over the last 2 weeks, how often have you been bothered by any of the following problems? 1. Little interest or pleasure in doing things: not at all 2. Feeling down, depressed, or hopeless: not at all 3. Trouble falling or staying asleep, or sleeping too much: not at all 4. Feeling tired or having little energy: not at all 5. Poor appetite or overeating: not at all 6. Feeling bad about yourself - or that you are a failure or have let yourself or your family down: not at all 7. Trouble concentrating on things, such as reading the newspaper or watching television: not at all 8. Moving or speaking so slowly that other people could have noticed. Or the opposite - being so fidgety or restless that you have been moving around a lot more than usual: not at all 9. Thoughts that you would be better off or of hurting yourself in some way: not at all Total score: 0 Depression Screening Interpretation: Negative Depression Screening Done: Yes 33308 - PHQ-9 Billing: Yes Source: Developed by Drs. Leo Quinones, Sandra Gleason, Kennedy Chau and colleagues, with an educational veto from [employer]. Thrive Questionnaire Date Thrive assessed: 05/25/24 I am a: Patient What is your living situation today?: I have a steady place to live Within the past 12 months, did the food you bought not last and you didn't have the money to get more?: Never true Within the past 12 months, did you worry whether your food would run out before you got money to buy more?: Never true Do you have trouble paying for medicines?: No Do you have trouble getting transportation to medical appointments?: No Do you have trouble paying your heating and electricity bill?: No Do you have trouble taking care of your child, family member or friend?: No Do you have trouble with day-to-day activities such as bathing, preparing meals, shopping, managing finances, etc.?: No Are you currently unemployed and looking for a job?: No Are you interested in more education?: No Please select the resources that you would like help with: None Currently or been in a relationship where the following occur: No concerns reported THRIVE Score: 0 AUDIT C Alcohol Use Questionnaire (AUDIT-C) 1. How often do you have a drink containing alcohol?: Never 3. How often do you have six or more drinks on one occasion?: Never Total Score: 0 Score Reviewed/Action Taken: Yes MACO-7 AMB Questionnaire MACO-7 Date MACO - 7 assessed: 05/25/24 Feeling nervous, anxious, or on edge: 0 = Not at all Not being able to stop or control worryin = Not at all Worrying too much about different things: 0 = Not at all Trouble relaxin = Not at all Being so restless that it is hard to sit still: 0 = Not at all Becoming easily annoyed or irritable: 0 = Not at all Feeling afraid as if something awful might happen: 0 = Not at all Total MACO-7 score (0-4 normal; 5-9 mild; 10-14 moderate; 15-21 severe): 0 Source: Developed by Drs. Leo Quinones, Sandra Gleason, Kennedy Chau and colleagues, with an educational veto from [employer]. MACO-7 Assessment Billing MACO-7 Assessment Tool: MACO-7 Assessment 45240 Review of Systems Const Denies chills, Reports fatigue, Denies fever(s), Denies headache(s) and Reports weakness ENT Denies dysphagia, Denies dizziness, Denies headache(s), Denies neck pain, Denies odynophagia and Denies sore throat Card Denies chest pain, Denies palpitations and Reports dyspnea on exertion (mild) Resp Denies chest congestion, Denies cough and Reports dyspnea on exertion (mild) GI Denies abdominal pain, Denies constipation, Denies dysphagia, Denies heartburn, Denies diarrhea, Denies nausea, Denies odynophagia and Denies vomiting Denies difficulty voiding, Denies nocturia, Denies dysuria and Denies urinary urgency Musc Denies back pain and Denies neck pain Skin/Breast Denies rash Neuro Denies dizziness, Denies headache(s) and Reports weakness Endo Reports fatigue and Denies palpitations Physical exam (Primary Care) Vital Signs: Last Vital Signs Pulse 91 05/25/24 12:09 BP 138/84 05/25/24 12:09 Pulse Ox 97 05/25/24 12:09 Oxygen Delivery Method Room Air 05/25/24 12:09 BMI result Body Mass Index 26.6 Tobacco/Smoking Status: Tobacco use Status Tobacco use date assessed 05/25/24 05/25/24 12:10 Patient Tobacco Use Status Never used Tobacco 05/25/24 12:10 e-Cigarette/Vaping Use Never Used 05/25/24 12:10 PHQ-9: PHQ-9 Score PHQ-9: Total score 0 05/28/24 06:33 Depression Screening Interpretation: Negative Thrive Assessment: Date of Thrive Assessment Date Thrive assessed 05/25/24 05/25/24 12:10 Currently or been in a relationship where the following occur: No concerns reported Const General: no acute distress and alert HENMT Ears: TM's normal bilaterally and EAC's normal Throat: Yes posterior oropharynx normal and Yes tonsils normal (no TP congestion noted) Neck Neck: Yes no lymphadenopathy and Yes supple Thyroid: Thyroid normal Resp Auscultation: clear to auscultation bilaterally, no rales and no wheezes Cardio Rate: regular rate Rhythm: regular rhythm Heart sounds: no murmurs GI Palpation (GI): Soft to palpation and nontender Auscultation: normal bowel sounds General: Yes no CVA tenderness Back/Spine/Pelvis Back: no CVA tenderness Thoracic/Lumbar Spine: No lumbar spinal tenderness Skin Rashes: no rashes Extrem General: Yes no clubbing, cyanosis or edema Results Reviewed Results Reviewed: Laboratory Tests 05/22/24 05/22/24 09:41 Unknown WBC 10.0 Hgb 10.9 L Hct 35.6 L Plt Count 332 D Sodium 143 Potassium 4.5 Creatinine 0.81 Estimated GFR > 60 Fasting Glucose 117 H Hemoglobin A1c % 6.1 H Calcium 10.0 AST 36 H ALT 21 Triglycerides 186 H Cholesterol 155 LDL Cholesterol, Calc 84 HDL Cholesterol 34 L 25-OH Vitamin D Total 39.6 TSH 1.95 Ur Specific [place] 1.015 Urine Protein Negative Urine Glucose (UA) Negative Urine Blood Negative Urine Nitrite Negative Ur Leukocyte Esterase Negative Microalb/Creat Ratio 24.7 Assessment and Plan Assessment & Plan (1) Mitral stenosis: Code(s): I05.0 - Rheumatic mitral stenosis Qualifiers: Cardiac valve disease etiology: nonrheumatic Qualified Code(s): I34.2 - Nonrheumatic mitral (valve) stenosis Plan: S/P MVR with a 25 mm MITRIS bovine pericardial prosthesis on 03/28/2024 at [facility] for severe rheumatic mitral stenosis with symptoms Continue warfarin and aspirin therapy for a total of 3 months postop, after which will consider switching to a NOAC She was recently cleared for cardiac rehab, which she started a couple of weeks ago and will continue Follow up with cardiology as scheduled (2) Paroxysmal atrial fibrillation: Comment: S/P ablation. Status post Maze procedure, March 2024 in conjunction with mitral valve replacement Code(s): I48.0 - Paroxysmal atrial fibrillation Plan: S/P ablation; she also underwent left-sided MAZE procedure with amputation of the left atrial appendage at [facility] on 03/28/2024 when she had her mitral valve replacement surgery done Continue Fleicanide 100 mg Q 12 hours; she is also on Metoprolol ER 25 mg QD and Amlodipine 5 mg QD Continue warfarin and aspirin therapy for a total of 3 months postop, after which will consider switching her to a NOAC Follow up with cardiology as scheduled (3) Mixed hyperlipidemia: Code(s): E78.2 - Mixed hyperlipidemia Plan: Results of her labs done a few days ago reviewed and discussed with patient Reinforced low cholesterol diet Continue Fenofibrate 145 mg QD Will recheck her labs and fasting lipids in 3 months for follow up (4) Type 2 diabetes mellitus: Code(s): E11.9 - Type 2 diabetes mellitus without complications Qualifiers: Diabetes mellitus snf insulin use: without snf use Diabetes mellitus complication status: without complication Qualified Code(s): E11.9 - Type 2 diabetes mellitus without complications Plan: Her HgbA1c was at 6.1% on her labs done a few days ago (in-office HgbA1c was at 6.8% a few months ago) - goal is <6.5% Reinforced diabetic diet/ exercise as tolerated Continue Sitagliptin 50 mg QD (5) Benign essential hypertension: Code(s): I10 - Essential (primary) hypertension Plan: Reinforced low-sodium diet -? goal is systolic BP of 120 mm or less Continue Valsartan 80 mg QD, Amlodipine 5 mg QD and Metoprolol ER 25 mg QD She is reminded to continue monitoring her blood pressure regularly (6) Asthma: Code(s): J45.909 - Unspecified asthma, uncomplicated Qualifiers: Asthma severity: mild Asthma persistence: intermittent Asthma complication type: uncomplicated Qualified Code(s): J45.20 - Mild intermittent asthma, uncomplicated Plan: Stable - continue Montelukast 10 mg Q PM Patient has NOT had to and does not like to use any asthma inhalers as much as possible - states that she often develops side effects when she used her asthma inhalers in the past Notes that her asthma has been well-controlled for years on Montelukast alone and hopes that this will continue for as long as possible (7) GERD without esophagitis: Code(s): K21.9 - Gastro-esophageal reflux disease without esophagitis Plan: Dietary restrictions reinforced Continue Pantoprazole 40 mg QD (8) Vitamin D deficiency: Code(s): E55.9 - Vitamin D deficiency, unspecified Plan: Continue Vitamin D3 2000 units QD (9) Osteoarthritis of left knee: Code(s): M17.12 - Unilateral primary osteoarthritis, left knee Qualifiers: Osteoarthritis type: primary Qualified Code(s): M17.12 - Unilateral primary osteoarthritis, left knee Plan: Continue Acetaminophen 1000 mg BID PRN for pain Follow up with orthopedics as needed (10) Recurrent cold sores: Code(s): 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 Panel Fast 3 Months E78.00 - Pure hypercholesterolemia, unspecified TSH reflex Free T4 3 Months E78.00 - Pure hypercholesterolemia, unspecified Vitamin D 25-OH Total 3 Months E55.9 - Vitamin D deficiency, unspecified Hemoglobin A1c 3 Months E11.9 - Type 2 diabetes mellitus without complications Lipid Panel 3 Months E78.00 - Pure hypercholesterolemia, unspecified Complete Blood Count Auto Diff 3 Months D64.9 - Anemia, unspecified Microalbumin, Random (w Creat) 3 Months E11.9 - Type 2 diabetes mellitus without complications UA CC w/rflx Micro + Cult 3 Months R30.0 - Dysuria Vitamin B12 and Folate 3 Months E53.8 - Deficiency of other specified B group vitamins Medications: New acyclovir 5% 1 appl topical 6XD 7 days PRN 30 grams 0RF cold sores Changed From sitagliptin phosphate (Januvia) 50 mg PO DAILY 30 days 30 tabs 3RF To sitagliptin phosphate (Januvia) 50 mg PO DAILY 90 days 90 tabs 1RF From aspirin (Adult Aspirin Regimen) 81 mg PO DAILY 30 tabs 0RF To aspirin (Adult Aspirin Regimen) 81 mg PO DAILY 90 days 90 tabs 3RF From valsartan 80 mg (2 x 40 mg) PO DAILY 30 tabs 0RF To valsartan 80 mg PO DAILY 90 days 90 tabs 1RF Coding Level of Care Code Est Pt Level 4 (82742) Diagnoses Nonrheumatic mitral valve stenosis I34.2 Cardiac valve disease etiology: nonrheumatic Paroxysmal atrial fibrillation I48.0 Mixed hyperlipidemia E78.2 Type 2 diabetes mellitus without complication, without long-term current use of insulin E11.9 Diabetes mellitus snf insulin use: without adjunct faculty for medical terminology use Diabetes mellitus complication status: without complication Benign essential hypertension I10 Mild intermittent asthma without complication J45.20 Asthma severity: mild Asthma persistence: intermittent Asthma complication type: uncomplicated GERD without esophagitis K21.9 Vitamin D deficiency E55.9 Primary osteoarthritis of left knee M17.12 Osteoarthritis type: primary Recurrent cold sores B00.1 Anxiety F41.9 Overweight (BMI 25.0-29.9) E66.3 Additional Codes MACO-7 Assessment Billing - MACO-7 Assessment Tool: MACO-7 Assessment 76149 ([id number])
== END 2024-05-25 12:46 | disposition home or self-care (01) ==
PROVIDERS: PCP Internal Medicine; Visit Provider Internal Medicine
DX: I34.2 Nonrheumatic mitral (valve) stenosis (principal); I48.0 Paroxysmal atrial fibrillation; E78.2 Mixed hyperlipidemia; E11.9 Type 2 diabetes mellitus without complications; I10 Essential (primary) hypertension; J45.20 Mild intermittent asthma, uncomplicated; K21.9 Gastro-esophageal reflux disease without esophagitis; E55.9 Vitamin D deficiency, unspecified; M17.12 Unilateral primary osteoarthritis, left knee; B00.1 Herpesviral vesicular dermatitis; F41.9 Anxiety disorder, unspecified; E66.3 Overweight
CPT/HCPCS: 99214

== ENCOUNTER → 2024-05-31 09:10 | Outpatient (BNVA) | payer OTHER, SELFPAY | PROVIDERS: PCP Internal Medicine; Visit Provider Internal Medicine ==

== ENCOUNTER → 2024-06-14 09:40 | Outpatient (BNVA) | payer OTHER, SELFPAY | PROVIDERS: PCP Internal Medicine; Visit Provider Internal Medicine ==

== ENCOUNTER 2024-06-21 14:01 | Outpatient (AMB) | payer OTHER, SELFPAY ==
[2024-06-21 14:13] LABS: Prothrombin Time Whole Bld POC 39.2 sec (11.1-13.5); ~PT, ~INR - Anti Coag Clinic 3.3 (0.9-1.1)
--- NOTE | 2024-06-21 14:24 | MHC.OFFVISCO ---
Intake Intake Visit Reasons: Anticoagulation Allergies clindamycin [CLINDAMYCIN] Allergy (Intermediate, Verified 06/21/24 14:14) RASH latex [LATEX] Allergy (Intermediate, Verified 06/21/24 14:14) RASH/ITCH codeine Allergy (Unknown, Verified 06/21/24 14:14) RASH cortisone Allergy (Unknown, Verified 06/21/24 14:14) FACIAL SWELLING hydromorphone [Dilaudid] Allergy (Unknown, Verified 06/21/24 14:14) Unknown meperidine [Demerol] Allergy (Unknown, Verified 06/21/24 14:14) Unknown morphine Allergy (Unknown, Verified 06/21/24 14:14) Unknown nifedipine Allergy (Unknown, Verified 06/21/24 14:14) Unknown silver [From TEGADERM AG MESH] Allergy (Unknown, Verified 06/21/24 14:14) RASH Penicillins Adverse Reaction (Severe, Verified 06/21/24 14:14) CHEST PAIN oxycodone [OXYCODONE] Adverse Reaction (Intermediate, Verified 06/21/24 14:14) NAUSEA & VOMITING tramadol [TRAMADOL] Adverse Reaction (Intermediate, Verified 06/21/24 14:14) LETHARGY famotidine [From Pepcid] Adverse Reaction (Mild, Verified 06/21/24 14:14) nausa levofloxacin [From LEVAQUIN] Adverse Reaction (Mild, Verified 06/21/24 14:14) arrythmia per patient cephalexin [Keflex] Adverse Reaction (Unknown, Verified 06/21/24 14:14) diarrhea ciprofloxacin [Cipro] Adverse Reaction (Unknown, Verified 06/21/24 14:14) Unknown colchicine Adverse Reaction (Unknown, Verified 06/21/24 14:14) stomach ache ibuprofen [IBUPROFEN] Adverse Reaction (Unknown, Verified 06/21/24 14:14) NAUSEA & VOMITING metronidazole [Flagyl] Adverse Reaction (Unknown, Verified 06/21/24 14:14) Unknown LOBSTER Allergy (Severe, Uncoded 06/14/24 10:55) SWELLING iv contrast Allergy (Mild, Uncoded 06/14/24 10:55) Unknown Darvocet-N 50 Allergy (Unknown, Uncoded 06/14/24 10:55) Unknown Sulfa Adverse Reaction (Unknown, Uncoded 06/14/24 10:55) diarrhea Medication List - Last Reconciled 06/21/24 by Camila Mckeon, RN acetaminophen 1,000 mg PO BID PRN acyclovir 5% 1 appl topical 6XD PRN 7 days [ADULT PULL UPs - MEDIUM size As directed] amlodipine 5 mg PO DAILY aspirin (Adult Aspirin Regimen) 81 mg PO DAILY 90 days fenofibrate nanocrystallized (Tricor) 145 mg PO DAILY 90 days flash glucose scanning reader ([employer] Kiesha 2 [place]) As directed flash glucose sensor ([employer] Kiesha 2 Sensor kit) As directed flecainide 100 mg PO Q12H 90 days metoprolol succinate ER 25 mg PO DAILY mometasone 0.1% 1 appl topical DAILY PRN montelukast 10 mg PO DAILY 90 days pantoprazole 40 mg PO DAILY 90 days sitagliptin phosphate (Januvia) 50 mg PO DAILY 90 days tetrahydrozoline 0.05% (Visine) 1 drp ophthalmic (eye) TID PRN triazolam 0.25 mg PO BEDTIME PRN 30 days valsartan 80 mg PO DAILY 90 days warfarin See Protocol 2 mg orally Take one to two tablets daily as directed by anticoagulation clinic.; 90 days warfarin 2.5 mg See Protocol PO DAILY Nursing Note PT. HERE TODAY FOR METER TO METER CORRELATION. PT.DEMONSTRATED GOOD TECHNIQUE WITH BLOOD DRAW AND METER USE. PT.DENIES ANY CP,SOB OR SX OF BLEEDING. NO MED CHANGES. PT.STATES THAT SHE HAS HAD LARGE AMTS OF STRAWBERRY RECENTLY. HOLD WARFARIN TODAY THEN CONTINUE PRESENT WARFARIN DOSE AND RETESTI IN 1 WEEK. GOOD UNDERSTANDING VERB. Anti-Coag Initial Assessment Social Hx Patient Tobacco Use Status: Never used Tobacco alcohol intake: never Coding Level of Care Code Est Patient Level 2 Diagnoses Current use of anticoagulant therapy Z79.01 Assessment & Plan Assessment & Plan (1) Current use of anticoagulant therapy: Code(s): Z79.01 - middle or intermediate school principal (current) use of anticoagulants Category: Medical
== END 2024-06-21 14:29 | disposition home or self-care (01) ==
LOC: HO.ACS 14:01
PROVIDERS: PCP Internal Medicine; Visit Provider Internal Medicine
DX: Z79.01 Long term (current) use of anticoagulants (principal)

== ENCOUNTER → 2024-06-21 14:01 | Outpatient (BNVA) | payer OTHER, SELFPAY | PROVIDERS: PCP Internal Medicine; Visit Provider Internal Medicine | DX: I48.0 Paroxysmal atrial fibrillation (principal); Z79.01 Long term (current) use of anticoagulants; Z51.81 Encounter for therapeutic drug level monitoring | CPT/HCPCS: 85610; 99212 ==

== ENCOUNTER → 2024-06-28 13:55 | Outpatient (BNVA) | payer OTHER, SELFPAY | PROVIDERS: PCP Internal Medicine; Visit Provider Internal Medicine ==

== ENCOUNTER → 2024-07-03 10:52 | Outpatient (REF) | payer OTHER, SELFPAY ==
--- NOTE | 2024-07-03 10:54 | CA_ITS ---
Transthoracic Echocardiogram Patient (Last, First, Middle): Dominga Diaz, Gender: Female Date of : 1955 Age: 68 Procedure Date: 07/03/2024 Procedure Type: Transthoracic Echocardiogram Location: OP Height: 157.48 cm Weight: 65.77 kg BSA: 1.67 m2 Heart Rate: 96 bpm BP: 132 / 66 mmHg Roof Designer: JASSON Referring MD: Alex Kelly MD Symptoms: Z95.2 - Presence of prosthetic heart valve Study Quality: Adequate ECG Rhythm: Sinus Conclusions: - LVEF vwgo-bq-jcrnxbplii reduced, about 40%. Globally hypokinetic. - A bioprosthetic mitral valve is present. The prosthetic mitral valve appears to be functioning normally. Findings Left Ventricle Normal left ventricular cavity size. There is normal left ventricular wall thickness. There is paradoxical septal motion consistent with post-operative status. Diastolic function is indeterminate on the basis of available data. LVEF iyek-wh-evplymbhsl reduced, about 40%. Globally hypokinetic. Right Ventricle Normal right ventricular cavity size. There is mild to moderately decreased right ventricular systolic function. Atria Both atria are normal in size. Aortic Valve There is a normal trileaflet aortic valve. There is no aortic valve stenosis. There is no aortic valve regurgitation. Mitral Valve A bioprosthetic mitral valve is present. The prosthetic mitral valve appears to be functioning normally. There is no mitral valve regurgitation. Mean gradient 6mmHg; HR about 90/min. Pulmonic Valve The pulmonic valve is likely normal. Tricuspid Valve There is no tricuspid valve regurgitation. Tricuspid regurgitation envelope is inadequate for calculation of right ventricular systolic pressure. Great Vessels The asc aorta is normal in size. Venous The inferior vena cava was not well visualized. Pericardium/Pleural There is no evidence of pericardial effusion. Prior Study Comparison Changes noted compared to prior study dated: 08/03/2022. s/p MVR; LVEF decreased. Measurements 2D Linear Measurements IVSd: 0.97 0.6-0.9/0.6-1.0 cm LVIDd: 5.23 3.9-5.3/4.2-5.9 cm LVIDd Index: 3.13 2.4-3.2/2.2-3.1 cm/m2 LVIDs: 3.57 2.0-3.6 cm LVPWd: 0.83 0.7-1.1 cm LA Diam: 4.40 2.7-3.8/3.0-4.0 cm LAIDs Index: 2.63 1.5-2.3 cm/m2 LV Mass: 212.24 67-162/88-224 g LV Mass Index: 127.09 43-95/49-115 g/m2 LVOT Diam: 1.90 3.0+(-)1.3 cm 2D Systolic Function EF 4C: 37.80 >55% EF 2C: 25.10 >55% EF BiP: 30.20 >55% Mitral Valve MV VTI: 0.37 MV Pk Kamran: 1.81 MV Mn Kamran: 1.15 MV Pk Grad: 13.00 MV Mn Grad: 6.00 MV Pk E: 1.62 MV PK A: 1.10 MV Decel Time: 227.00 E/A: 1.50 E'Lateral: 6.74 E'Medial: 4.79 E/E' Med: 33.80 E/E' Lat: 24.00 PHT: 67.00 MVA PHT: 3.28 MVA Continuity: 1.21 Decel Floyd: 7.12 Aortic Valve AoV Pk Kamran: 1.54 AoV Mn Kamran: 1.04 AoV VTI: 0.25 AoV Pk Grad: 9.00 Aov Mn Grad: 5.00 LAYLA Cont.VTI: 1.80 LVOT LVOT Pk Kamran: 0.96 LVOT Mn Kamran: 0.68 LVOT VTI: 0.16 LVOT Pk Grad: 4.00 LVOT Mn Grad: 2.00 LVOT Diam: 1.90 LVOT Area: 2.84 Diastolic Function MV Pk E: 1.62 MV Pk A: 1.10 E/A: 1.50 E'Medial: 4.79 E/E' Med: 33.80 E' Laterial: 6.74 E/E' Lat: 24.00 Right Ventricle TAPSE (mm): 7.30 TVS' Kamran: 8.00 Great Vessels Aorta Sinus of Valsalva: 2.70 2.0-3.5 cm Ao Asc: 3.30 2.1-3.4 cm Pulmonary Veins Pulm Vein S/D 0.60 Pulmonary Valve PV Pk Kamran: 1.15 Peak PV Grad: 5.00 Updated in Other Vendor System with Status of Final Obey Dhruv MD electronically signed on 07/04/2024 12:45:05 PM with status of Final
== END ==
LOC: HO.CARD 10:52
PROVIDERS: PCP Internal Medicine; Visit Provider Internal Medicine Cardiovascular Disease
DX: Z95.2 Presence of prosthetic heart valve (principal)
CPT/HCPCS: 93306

== ENCOUNTER → 2024-07-03 10:54 | Outpatient (BNV) | payer OTHER, SELFPAY | PROVIDERS: PCP Internal Medicine; Visit Provider Internal Medicine | DX: Z95.3 Presence of xenogenic heart valve (principal) | CPT/HCPCS: 93306 ==

== ENCOUNTER → 2024-07-05 13:44 | Outpatient (BNVA) | payer OTHER, SELFPAY | PROVIDERS: PCP Internal Medicine; Visit Provider Internal Medicine ==

== ENCOUNTER → 2024-07-12 12:21 | Outpatient (BNVA) | payer OTHER, SELFPAY | PROVIDERS: PCP Internal Medicine; Visit Provider Internal Medicine ==

== ENCOUNTER → 2024-07-17 14:47 | Outpatient (BNVA) | payer OTHER, SELFPAY | PROVIDERS: PCP Internal Medicine; Visit Provider Internal Medicine ==

== ENCOUNTER 2024-07-18 15:23 | Outpatient (AMB) | payer OTHER, SELFPAY ==
--- NOTE | 2024-07-18 15:33 | A.OFFVIS_ITS ---
Vital Signs 07/18/24 15:34 Height 5 ft 2 in Weight 147 lb 11.355 oz BMI 27.0 BP 126/62 Blood Pressure Location Lt brachial Position Sitting Pulse 83 Intake Visit Reasons: 2 mth fu after echo Intake Note: 2 month f/u s/p Echo. Pt state that she has had some chest pain w/ activity. Did have some dizziness and nausea after throwing away the trash. Spot Machine Operator Required: No Accompanied by: Self / Same As Patient Allergies clindamycin [CLINDAMYCIN] Allergy (Intermediate, Verified 07/17/24 14:49) RASH latex [LATEX] Allergy (Intermediate, Verified 07/17/24 14:49) RASH/ITCH codeine Allergy (Unknown, Verified 07/17/24 14:49) RASH cortisone Allergy (Unknown, Verified 07/17/24 14:49) FACIAL SWELLING hydromorphone [Dilaudid] Allergy (Unknown, Verified 07/17/24 14:49) Unknown meperidine [Demerol] Allergy (Unknown, Verified 07/17/24 14:49) Unknown morphine Allergy (Unknown, Verified 07/17/24 14:49) Unknown nifedipine Allergy (Unknown, Verified 07/17/24 14:49) Unknown silver [From TEGADERM AG MESH] Allergy (Unknown, Verified 07/17/24 14:49) RASH Penicillins Adverse Reaction (Severe, Verified 07/17/24 14:49) CHEST PAIN oxycodone [OXYCODONE] Adverse Reaction (Intermediate, Verified 07/17/24 14:49) NAUSEA & VOMITING tramadol [TRAMADOL] Adverse Reaction (Intermediate, Verified 07/17/24 14:49) LETHARGY famotidine [From Pepcid] Adverse Reaction (Mild, Verified 07/17/24 14:49) nausa levofloxacin [From LEVAQUIN] Adverse Reaction (Mild, Verified 07/17/24 14:49) arrythmia per patient cephalexin [Keflex] Adverse Reaction (Unknown, Verified 07/17/24 14:49) diarrhea ciprofloxacin [Cipro] Adverse Reaction (Unknown, Verified 07/17/24 14:49) Unknown colchicine Adverse Reaction (Unknown, Verified 07/17/24 14:49) stomach ache ibuprofen [IBUPROFEN] Adverse Reaction (Unknown, Verified 07/17/24 14:49) NAUSEA & VOMITING metronidazole [Flagyl] Adverse Reaction (Unknown, Verified 07/17/24 14:49) Unknown LOBSTER Allergy (Severe, Uncoded 07/17/24 14:49) SWELLING iv contrast Allergy (Mild, Uncoded 07/17/24 14:49) Unknown Darvocet-N 50 Allergy (Unknown, Uncoded 07/17/24 14:49) Unknown Sulfa Adverse Reaction (Unknown, Uncoded 07/17/24 14:49) diarrhea Medication List - Last Reconciled 07/18/24 by Alex Kelly MD acetaminophen 1,000 mg PO BID PRN acyclovir 5% 1 appl topical 6XD PRN 7 days [ADULT PULL UPs - MEDIUM size As directed] amlodipine 5 mg PO DAILY aspirin (Adult Aspirin Regimen) 81 mg PO DAILY 90 days celecoxib 200 mg PO DAILY cholecalciferol (vitamin D3) 50 mcg PO DAILY fenofibrate nanocrystallized (Tricor) 145 mg PO DAILY 90 days flash glucose scanning reader ([employer] Kiesha 2 Boles) As directed flash glucose sensor ([employer] Kiesha 2 Sensor kit) As directed flecainide 100 mg PO Q12H 90 days metoprolol succinate ER 25 mg PO DAILY mometasone 0.1% 1 appl topical DAILY PRN montelukast 10 mg PO DAILY 90 days pantoprazole 40 mg PO DAILY 90 days sitagliptin phosphate (Januvia) 50 mg PO DAILY 90 days tetrahydrozoline 0.05% (Visine) 1 drp ophthalmic (eye) TID PRN triazolam 0.25 mg PO BEDTIME PRN 30 days valsartan 80 mg PO DAILY 90 days warfarin See Protocol 2 mg orally Take one to two tablets daily as directed by anticoagulation clinic.; 90 days warfarin 2.5 mg See Protocol PO DAILY HPI Comments Details: Dominga comes for follow-up. Has not had any recurrent episodes of atrial fibrillation palpitations. Blood pressures been very well controlled. Finish phase 2 cardiac rehabilitation. Overall still feels fatigued and tired. Recent echocardiogram shows depressed LVEF of 40-45% of unclear etiology with normally function bioprosthetic mitral valve. She denies any orthopnea, PND, leg edema. No lightheadedness, syncope. Recently while throwing garbage, she had some acute chest pain. This has not resolved. [facility] Medical History Mitral stenosis Vitamin D deficiency Urinary incontinence Type 2 diabetes mellitus Asthma Overweight (BMI 25.0-29.9) Renal cell carcinoma of right kidney GERD without esophagitis Anxiety Osteoarthritis of left knee Impaired fasting glucose Paroxysmal atrial fibrillation Benign essential hypertension Mixed hyperlipidemia Surgical History History of maze procedure Status post mitral valve replacement S/P cardiac cath (~08/2020) History of right nephrectomy History of surgery History of surgery H/O nephrostomy H/O cardiac radiofrequency ablation History of tooth extraction History of hysterectomy History of section Family History Father Cancer Mother Stroke Hypertension Sister Cancer Social History Housing: House Alcohol intake: never Patient Tobacco Use Status: Never used Tobacco e-Cigarette/Vaping Use: Never Used Second Hand Smoke Exposure: Yes service: No Current occupational status: retired Cognitive needs: No Hearing needs: No Vision needs: No Review of Systems Const Denies chills, Denies fatigue, Denies fever(s), Denies weight gain and Denies weight loss ENT Denies dizziness Card Denies chest pain, Reports chest pain with activity, Denies leg edema, Denies lightheadedness, Denies palpitations, Denies dyspnea on exertion, Denies orthopnea and Denies other Resp Denies cough and Denies dyspnea on exertion GI Denies hematochezia and Denies change in stool character Musc Denies abnormal gait, Denies muscle weakness, Denies numbness, Denies radiating pain into limb and Denies tingling Neuro Denies abnormal gait, Denies dizziness, Denies numbness and Denies tingling Endo Denies fatigue and Denies palpitations Physical Exam Vital Signs: Last Vital Signs Pulse 83 07/18/24 15:34 BP 126/62 07/18/24 15:34 BMI result Body Mass Index 27.0 Const General: cooperative, comfortable, no acute distress, alert, awake and well groomed Nutritional Appearance: overweight Orientation/consciousness: patient oriented x3 Limitations: no limitations Neck Neck: Yes trachea midline, Yes supple and Yes no JVD Chest Chest palpation & inspection: other (Sternotomy wound is healing well) Resp Effort & Inspection: normal respiratory effort Auscultation: clear to auscultation bilaterally Cardio Jugular venous distension: no JVD Palpation: normal PMI Rate: regular rate Rhythm: regular rhythm Heart sounds: S1 normal heart sound present, S2 normal heart sound present, no click, no gallops and no murmurs GI Auscultation: normal bowel sounds Skin General skin exam: no rashes or lesions noted and ecchymosis Neuro General: patient oriented x3 and no focal motor deficits Extrem General: Yes no clubbing, cyanosis or edema Psych Appearance: grossly normal Affect: Anxious affect present Office Procedures EKG Details: EKG shows normal sinus rhythm with first-degree AV block with rightward axis and incomplete right bundle-branch block [id number], Complete Assessment & Plan Assessment & Plan (1) Nonischemic cardiomyopathy: Code(s): I42.8 - Other cardiomyopathies Category: Medical Plan: New onset cardiomyopathy of unclear etiology most likely nonischemic as she was knows coronary disease. Question related to mitral valve surgery. Patient has no signs or symptoms of heart failure. Continue valsartan therapy for neurohormonal modulation. Signs and symptoms of heart failure were discussed. Continue aggressive blood pressure control. Encouraged to continue to participate in physical activity as tolerated. (2) Status post mitral valve replacement: Comment: 25 mm pericardial bioprosthetic valve, March 28, 2024 Code(s): Z95.2 - Presence of prosthetic heart valve Category: Surgical Plan: Bioprosthetic mitral valve replacement with well functioning valve. Aspirin can be discontinued. At this point time will also switch her to direct oral anticoagulant therapy. SBE prophylaxis as per ACC/[facility] guidelines. Continue aggressive vascular risk factor modification. (3) Paroxysmal atrial fibrillation: Comment: S/P ablation. Status post Maze procedure, March 2024 in conjunction with mitral valve replacement Code(s): I48.0 - Paroxysmal atrial fibrillation Category: Medical Plan: Atrial fibrillation which is currently suppressed with Maze procedure. Noted LV systolic dysfunction. Flecainide will be discontinued. Will continue monitor clinically. If she has recurrent atrial fibrillation will have to use alternative antiarrhythmic drug such as Multaq and/or sotalol Tikosyn. This was discussed with her. Will switch her to direct oral anticoagulant on her request. Stop warfarin therapy. Will given instructions when she requires Eliquis therapy. Will follow up in the clinic in 6 months time, sooner p.r.n.. Thank you for allowing me to partake in his care Medications: New apixaban (Eliquis) 5 mg PO BID 90 tabs 3RF Coding Level of Care Code Est Pt Level 4 (37096) Complex EM visit Add On G2211 Diagnoses Nonischemic cardiomyopathy I42.8 Status post mitral valve replacement Z95.2 Paroxysmal atrial fibrillation I48.0 CPT Codes EKG - CPT: 12545-[id number], Complete ([id number])
[2024-07-18 15:34] VITALS: BP 126/62; PULSE 83; BMI 27.0
== END 2024-07-18 16:08 | disposition home or self-care (01) ==
PROVIDERS: PCP Internal Medicine; Visit Provider Internal Medicine Cardiovascular Disease
DX: I42.8 Other cardiomyopathies (principal); Z95.2 Presence of prosthetic heart valve; I48.0 Paroxysmal atrial fibrillation
CPT/HCPCS: 93010; 99214; G2211

== ENCOUNTER → 2024-07-18 15:23 | Outpatient (BNVA) | payer OTHER, SELFPAY | PROVIDERS: PCP Internal Medicine; Visit Provider Internal Medicine Cardiovascular Disease | DX: I44.0 Atrioventricular block, first degree (principal); I45.19 Other right bundle-branch block; I48.0 Paroxysmal atrial fibrillation; I42.8 Other cardiomyopathies; R00.2 Palpitations; Z95.2 Presence of prosthetic heart valve | CPT/HCPCS: 93005; 99212 ==

== ENCOUNTER 2024-09-04 10:53 | Outpatient (AMB) | payer OTHER, SELFPAY ==
[2024-09-04 10:57] VITALS: BP 122/80; PULSE 97; O2SAT 98; BMI 27.4
--- NOTE | 2024-09-04 10:57 | MHC.PC.OV ---
Vital Signs 09/04/24 10:57 Height 5 ft 2 in Weight 150 lb BMI 27.4 BP 122/80 Blood Pressure Location Lt brachial Position Sitting Pulse 97 Pulse Source Pulse Oximeter Pulse Oximetry (%) 98 Oxygen Delivery Method Room Air Intake Visit Reasons: 3mth f/u Associate Civil Engineer Required: No Accompanied by: Self / Same As Patient Allergies clindamycin [CLINDAMYCIN] Allergy (Intermediate, Verified 09/04/24 11:22) RASH latex [LATEX] Allergy (Intermediate, Verified 09/04/24 11:22) RASH/ITCH codeine Allergy (Unknown, Verified 09/04/24 11:22) RASH cortisone Allergy (Unknown, Verified 09/04/24 11:22) FACIAL SWELLING hydromorphone [Dilaudid] Allergy (Unknown, Verified 09/04/24 11:22) Unknown meperidine [Demerol] Allergy (Unknown, Verified 09/04/24 11:22) Unknown morphine Allergy (Unknown, Verified 09/04/24 11:22) Unknown nifedipine Allergy (Unknown, Verified 09/04/24 11:22) Unknown silver [From TEGADERM AG MESH] Allergy (Unknown, Verified 09/04/24 11:22) RASH Penicillins Adverse Reaction (Severe, Verified 09/04/24 11:22) CHEST PAIN oxycodone [OXYCODONE] Adverse Reaction (Intermediate, Verified 09/04/24 11:22) NAUSEA & VOMITING tramadol [TRAMADOL] Adverse Reaction (Intermediate, Verified 09/04/24 11:22) LETHARGY famotidine [From Pepcid] Adverse Reaction (Mild, Verified 09/04/24 11:22) nausa levofloxacin [From LEVAQUIN] Adverse Reaction (Mild, Verified 09/04/24 11:22) arrythmia per patient cephalexin [Keflex] Adverse Reaction (Unknown, Verified 09/04/24 11:22) diarrhea ciprofloxacin [Cipro] Adverse Reaction (Unknown, Verified 09/04/24 11:22) Unknown colchicine Adverse Reaction (Unknown, Verified 09/04/24 11:22) stomach ache ibuprofen [IBUPROFEN] Adverse Reaction (Unknown, Verified 09/04/24 11:22) NAUSEA & VOMITING metronidazole [Flagyl] Adverse Reaction (Unknown, Verified 09/04/24 11:22) Unknown LOBSTER Allergy (Severe, Uncoded 09/04/24 11:22) SWELLING iv contrast Allergy (Mild, Uncoded 09/04/24 11:22) Unknown Darvocet-N 50 Allergy (Unknown, Uncoded 09/04/24 11:22) Unknown Sulfa Adverse Reaction (Unknown, Uncoded 09/04/24 11:22) diarrhea Medication List - Last Reconciled 09/04/24 by Chandana Cottrell MD acetaminophen 1,000 mg PO BID PRN acyclovir 5% 1 appl topical 6XD PRN 7 days [ADULT PULL UPs - MEDIUM size As directed] amlodipine 5 mg PO DAILY apixaban (Eliquis) 5 mg PO BID aspirin (Adult Aspirin Regimen) 81 mg PO DAILY 90 days celecoxib 200 mg PO DAILY cholecalciferol (vitamin D3) 50 mcg PO DAILY dronedarone (Multaq) 400 mg PO BID fenofibrate nanocrystallized (Tricor) 145 mg PO DAILY 90 days flash glucose scanning reader ([employer] [place]) As directed metoprolol succinate ER 25 mg PO DAILY mometasone 0.1% 1 appl topical DAILY PRN montelukast 10 mg PO DAILY 90 days pantoprazole 40 mg PO DAILY 90 days sitagliptin phosphate (Januvia) 50 mg PO DAILY 90 days tetrahydrozoline 0.05% (Visine) 1 drp ophthalmic (eye) TID PRN triazolam 0.25 mg PO BEDTIME PRN 30 days valsartan 80 mg PO DAILY 90 days Tobacco use date assessed: 09/04/24 Fall risk assessment: 1 Fall in past year Last assessed Fall Risk: 09/04/24 Dental Screening Dental Screen Date: 09/04/24 Did you have a dental visit in the last 12 months?: Yes Did you have a dental problem in the last 6 months where you did not have access to dental care?: No Was dental information given to patient?: Patient has dentist HPI 3mth f/u HPI Details Patient comes in today for her follow-up visit States that she feels okay although she still feels very weak often She denies any headaches or dizziness Denies any chest pains, no increased shortness of breath No nausea/vomiting, no abdominal pain No change in bowel habits noted She was not able to get her follow-up labs done yet - states that she will try to get these done DIANNA She would also like to get her flu shot today [facility] Medical History (Updated 09/04/24 @ 11:35 by Chandana Cottrell MD) Insomnia Mitral stenosis Vitamin D deficiency Urinary incontinence Type 2 diabetes mellitus Asthma Overweight (BMI 25.0-29.9) Renal cell carcinoma of right kidney GERD without esophagitis Anxiety Osteoarthritis of left knee Impaired fasting glucose Paroxysmal atrial fibrillation Benign essential hypertension Mixed hyperlipidemia Surgical History History of maze procedure Status post mitral valve replacement S/P cardiac cath (~08/2020) History of right nephrectomy History of surgery History of surgery H/O nephrostomy H/O cardiac radiofrequency ablation History of tooth extraction History of hysterectomy History of section Family History Father Cancer Mother Stroke Hypertension Sister Cancer Social History Housing: House Alcohol intake: never Patient Tobacco Use Status: Never used Tobacco e-Cigarette/Vaping Use: Never Used Second Hand Smoke Exposure: Yes service: No Current occupational status: retired Cognitive needs: No Hearing needs: No Vision needs: No Questionnaire PHQ-9 Over the last 2 weeks, how often have you been bothered by any of the following problems? 1. Little interest or pleasure in doing things: not at all 2. Feeling down, depressed, or hopeless: not at all 3. Trouble falling or staying asleep, or sleeping too much: not at all 4. Feeling tired or having little energy: not at all 5. Poor appetite or overeating: not at all 6. Feeling bad about yourself - or that you are a failure or have let yourself or your family down: not at all 7. Trouble concentrating on things, such as reading the newspaper or watching television: not at all 8. Moving or speaking so slowly that other people could have noticed. Or the opposite - being so fidgety or restless that you have been moving around a lot more than usual: not at all 9. Thoughts that you would be better off or of hurting yourself in some way: not at all Total score: 0 Depression Screening Interpretation: Negative Depression Screening Done: Yes 59657 - PHQ-9 Billing: Yes Source: Developed by Drs. Leo Quinones, Sandra Gleason, Kennedy Chau and colleagues, with an educational veto from [employer]. Thrive Questionnaire Date Thrive assessed: 09/04/24 I am a: Patient What is your living situation today?: I have a steady place to live Within the past 12 months, did the food you bought not last and you didn't have the money to get more?: Never true Within the past 12 months, did you worry whether your food would run out before you got money to buy more?: Never true Do you have trouble paying for medicines?: No Do you have trouble getting transportation to medical appointments?: No Do you have trouble paying your heating and electricity bill?: No Do you have trouble taking care of your child, family member or friend?: No Do you have trouble with day-to-day activities such as bathing, preparing meals, shopping, managing finances, etc.?: No Are you currently unemployed and looking for a job?: No Are you interested in more education?: No Please select the resources that you would like help with: None Currently or been in a relationship where the following occur: No concerns reported THRIVE Score: 0 AUDIT C Alcohol Use Questionnaire (AUDIT-C) 1. How often do you have a drink containing alcohol?: Never 3. How often do you have six or more drinks on one occasion?: Never Total Score: 0 Score Reviewed/Action Taken: Yes MACO-7 AMB Questionnaire MACO-7 Date MACO - 7 assessed: 09/04/24 Feeling nervous, anxious, or on edge: 0 = Not at all Not being able to stop or control worryin = Not at all Worrying too much about different things: 0 = Not at all Trouble relaxin = Not at all Being so restless that it is hard to sit still: 0 = Not at all Becoming easily annoyed or irritable: 0 = Not at all Feeling afraid as if something awful might happen: 0 = Not at all Total MACO-7 score (0-4 normal; 5-9 mild; 10-14 moderate; 15-21 severe): 0 Source: Developed by Drs. Leo Quinones, Kennedy Alonzo and colleagues, with an educational veto from [employer]. MACO-7 Assessment Billing MACO-7 Assessment Tool: MACO-7 Assessment 63838 Review of Systems Const Denies chills, Reports fatigue, Denies fever(s), Denies headache(s) and Reports weakness ENT Denies dysphagia, Denies dizziness, Denies otalgia, Denies headache(s), Denies neck pain, Denies odynophagia and Denies sore throat Card Denies chest pain, Denies palpitations and Reports dyspnea on exertion (mild) Resp Denies chest congestion, Denies cough and Reports dyspnea on exertion (mild) GI Denies abdominal pain, Denies constipation, Denies dysphagia, Denies heartburn, Denies diarrhea, Denies nausea, Denies odynophagia and Denies vomiting Denies difficulty voiding, Denies nocturia, Denies dysuria and Denies urinary urgency Musc Denies back pain and Denies neck pain Skin/Breast Denies rash Neuro Denies dizziness, Denies headache(s) and Reports weakness Endo Reports fatigue and Denies palpitations Physical exam (Primary Care) Vital Signs: Last Vital Signs Pulse 97 09/04/24 10:57 BP 122/80 09/04/24 10:57 Pulse Ox 98 09/04/24 10:57 Oxygen Delivery Method Room Air 09/04/24 10:57 BMI result Body Mass Index 27.4 Tobacco/Smoking Status: Tobacco use Status Tobacco use date assessed 09/04/24 09/04/24 11:00 Patient Tobacco Use Status Never used Tobacco 09/04/24 11:00 e-Cigarette/Vaping Use Never Used 09/04/24 11:00 PHQ-9: PHQ-9 Score PHQ-9: Total score 0 09/04/24 11:44 Depression Screening Interpretation: Negative Thrive Assessment: Date of Thrive Assessment Date Thrive assessed 09/04/24 09/04/24 11:00 Currently or been in a relationship where the following occur: No concerns reported Const General: no acute distress and alert HENMT Ears: TM's normal bilaterally and EAC's normal Throat: Yes posterior oropharynx normal and Yes tonsils normal (no TP congestion noted) Neck Neck: Yes no lymphadenopathy and Yes supple Thyroid: Thyroid normal Resp Auscultation: clear to auscultation bilaterally, no rales and no wheezes Cardio Rate: regular rate Rhythm: regular rhythm Heart sounds: no murmurs GI Palpation (GI): Soft to palpation and nontender Auscultation: normal bowel sounds General: Yes no CVA tenderness Back/Spine/Pelvis Back: no CVA tenderness Thoracic/Lumbar Spine: No lumbar spinal tenderness Skin Rashes: no rashes Extrem General: Yes no clubbing, cyanosis or edema Office Procedures Flu Questionnaire Does the patient have a severe egg allergy?: No Does the patient have severe life threatening allergies?: No Does the patient have a fever or illness today?: No Has the patient ever had Guillain-[place] Syndrome?: No Has the patient ever had any past reaction to a flu shot?: No Immunizations Fluarix Triv 2133-1049 (PF) 45 mcg (15 mcg x 3)/0.5 mL IM syringe Performing Provider: Chandana Cottrell MD [facility] [place] [facility] Administered by: MILAGROS Christina on 09/04/24 11:44 Dose Route Admin Location Dispensed Lot Number Expiration Date [facility] [employer] Rec[employer]iter 0.5 mL IM Right Deltoid 0.5 mL [id number] 03/12/25 [id number] [employer] VIS Given Date VIS Provided VIS Publication Date 09/04/24 Single Vaccine 21 Eligibility Eligibility Date Funding Source Not [facility] Eligible 09/04/24 Private Coding Level of Care Code Est Pt Level 4 (64076) Diagnoses Nonrheumatic mitral valve stenosis I34.2 Cardiac valve disease etiology: nonrheumatic Paroxysmal atrial fibrillation I48.0 Mixed hyperlipidemia E78.2 Type 2 diabetes mellitus without complication, without long-term current use of insulin E11.9 Diabetes mellitus shelter insulin use: without shelter use Diabetes mellitus complication status: without complication Benign essential hypertension I10 Mild intermittent asthma without complication J45.20 Asthma severity: mild Asthma persistence: intermittent Asthma complication type: uncomplicated GERD without esophagitis K21.9 Vitamin D deficiency E55.9 Primary osteoarthritis of left knee M17.12 Osteoarthritis type: primary Insomnia, unspecified type G47.00 Insomnia type: unspecified Overweight (BMI 25.0-29.9) E66.3 Additional Codes MACO-7 Assessment Billing - MACO-7 Assessment Tool: MACO-7 Assessment 19009 ([id number]) PHQ-9 - 83239 - PHQ-9 Billing: Yes ([id number]) Assessment & Plan Assessment & Plan (1) Mitral stenosis: Code(s): I05.0 - Rheumatic mitral stenosis Category: Medical Qualifiers: Cardiac valve disease etiology: nonrheumatic Qualified Code(s): I34.2 - Nonrheumatic mitral (valve) stenosis Plan: S/P MVR with a 25 mm MITRIS bovine pericardial prosthesis on 03/28/2024 at [facility] for severe rheumatic mitral stenosis with symptoms Continue warfarin and aspirin therapy for a total of 3 months postop, after which she was switched over to Eliquis 5 mg BID She also completed cardiac rehab, which she states helped somewhat Follow up with cardiology as scheduled (2) Paroxysmal atrial fibrillation: Comment: S/P ablation. Status post Maze procedure, March 2024 in conjunction with mitral valve replacement Code(s): I48.0 - Paroxysmal atrial fibrillation Category: Medical Plan: S/P ablation; she also underwent left-sided MAZE procedure with amputation of the left atrial appendage at [facility] on 03/28/2024 when she had her mitral valve replacement surgery done Continue Multaq 400 mg BID; she is also on Metoprolol ER 25 mg QD and Amlodipine 5 mg QD Continue Eliquis 5 mg BID Follow up with cardiology as scheduled (3) Mixed hyperlipidemia: Code(s): E78.2 - Mixed hyperlipidemia Category: Medical Plan: She was not able to get her follow-up labs done prior to her appointment today - states that she will try to get them done DIANNA Reinforced low cholesterol diet Continue Fenofibrate 145 mg QD Will recheck her labs and fasting lipids in 4 months for follow up (4) Type 2 diabetes mellitus: Code(s): E11.9 - Type 2 diabetes mellitus without complications Category: Medical Qualifiers: Diabetes mellitus shelter insulin use: without shelter use Diabetes mellitus complication status: without complication Qualified Code(s): E11.9 - Type 2 diabetes mellitus without complications Plan: Her HgbA1c was at 6.1% when last checked a few months ago (in-office HgbA1c was previously at 6.8%) - goal is <6.5% Reinforced diabetic diet/ exercise as tolerated Continue Sitagliptin 50 mg QD (5) Benign essential hypertension: Code(s): I10 - Essential (primary) hypertension Category: Medical Plan: Reinforced low-sodium diet -? goal is systolic BP of 120 mm or less Continue Valsartan 80 mg QD, Amlodipine 5 mg QD and Metoprolol ER 25 mg QD She is reminded to continue monitoring her blood pressure regularly (6) Asthma: Code(s): J45.909 - Unspecified asthma, uncomplicated Category: Medical Qualifiers: Asthma severity: mild Asthma persistence: intermittent Asthma complication type: uncomplicated Qualified Code(s): J45.20 - Mild intermittent asthma, uncomplicated Plan: Stable - continue Montelukast 10 mg Q PM Patient has NOT had to and does not like to use any asthma inhalers as much as possible - states that she often develops side effects when she used her asthma inhalers in the past Notes that her asthma has been well-controlled for years on Montelukast alone and hopes that this will continue for as long as possible (7) GERD without esophagitis: Code(s): K21.9 - Gastro-esophageal reflux disease without esophagitis Category: Medical Plan: Dietary restrictions reinforced Continue Pantoprazole 40 mg QD (8) Vitamin D deficiency: Code(s): E55.9 - Vitamin D deficiency, unspecified Category: Medical Plan: Continue Vitamin D3 2000 units QD (9) Osteoarthritis of left knee: Code(s): M17.12 - Unilateral primary osteoarthritis, left knee Category: Medical Qualifiers: Osteoarthritis type: primary Qualified Code(s): M17.12 - Unilateral primary osteoarthritis, left knee Plan: Continue Acetaminophen 1000 mg BID PRN for pain Follow up with orthopedics as needed (10) Insomnia: Comment: Zolpidem (unable to sleep; weakness; tremors); Doxepin (did not help her sleep) - has been doing well on Triazolam > 20 years Code(s): G47.00 - Insomnia, unspecified Category: Medical Qualifiers: Insomnia type: unspecified Qualified Code(s): G47.00 - Insomnia, unspecified Plan: Sleep hygiene reinforced Continue Triazolam 0.25 mg once a day at bedtime as needed (11) Overweight (BMI 25.0-29.9): Code(s): E66.3 - Overweight Category: Medical Plan: Reinforced diet and weight loss; exercise is difficult at this time given her recent cardiac surgery Plan As requested, flu vaccine given to patient today Follow up in 4 months Orders: Orders Comprehensive [place]. Panel Fast 4 Months E78.00 - Pure hypercholesterolemia, unspecified UA CC w/rflx Micro + Cult 4 Months R30.0 - Dysuria Influenza [id number] Immunization 09/04/24 Z23 - Encounter for immunization Complete Blood Count Auto Diff 4 Months D64.9 - Anemia, unspecified Lipid Panel 4 Months E78.00 - Pure hypercholesterolemia, unspecified TSH reflex Free T4 4 Months E78.00 - Pure hypercholesterolemia, unspecified
== END 2024-09-04 11:48 | disposition home or self-care (01) ==
PROVIDERS: PCP Internal Medicine; Visit Provider Internal Medicine
DX: Z23 Encounter for immunization (principal)

== ENCOUNTER → 2024-09-04 10:53 | Outpatient (BNVA) | payer OTHER, SELFPAY | PROVIDERS: PCP Internal Medicine; Visit Provider Internal Medicine | DX: I34.2 Nonrheumatic mitral (valve) stenosis (principal); I48.0 Paroxysmal atrial fibrillation; E78.2 Mixed hyperlipidemia; E11.9 Type 2 diabetes mellitus without complications; I10 Essential (primary) hypertension; J45.20 Mild intermittent asthma, uncomplicated; K21.9 Gastro-esophageal reflux disease without esophagitis; E55.9 Vitamin D deficiency, unspecified; M17.12 Unilateral primary osteoarthritis, left knee; G47.00 Insomnia, unspecified; E78.00 Pure hypercholesterolemia, unspecified; R30.0 Dysuria; D64.9 Anemia, unspecified; E66.3 Overweight; Z23 Encounter for immunization; Z68.27 Body mass index [BMI] 27.0-27.9, adult | CPT/HCPCS: 90471; 90656; 96127; 99212 ==

== ENCOUNTER 2024-09-07 08:21 | Outpatient (REF) | payer OTHER, SELFPAY ==
[2024-09-07 09:16] LABS: Basophils Absolute Auto 0.1 X10*3/uL (0.0-0.2); Basophils Percent Auto 1.1 % (0-2); Eosinophils Absolute Auto 0.3 X10*3/uL (0.0-0.4); Eosinophils Percent Auto 3.6 % (0-4); Hematocrit 41.8 % (37.0-47.0); Hemoglobin 12.7 g/dl (12.0-16.0); Imm Gran Abs Auto 0.15 X10*3/uL (0.00-0.03); Imm Gran Pct Auto 1.6 % (0.0-0.4); Lymphocytes Percent Auto 42.6 % (20-40); MANUAL DIFF FLAG SCAN; Mean Corpuscular HGB Conc 30.4 g/dl (31.0-35.0); Mean Corpuscular Hemoglobin 25.9 pg (27.0-33.0); Mean Corpuscular Volume 85.3 fL (80.0-98.0); Monocytes Absolute Auto 0.8 X10*3/uL (0.1-1.2); Monocytes Percent Auto 8.1 % (2-11); Neutrophils Absolute Auto 4.1 x10*3/uL (2.0-8.3); PLT CLUMP 1; Red Cell Distribution Width 18.2 % (11.0-16.0); SCAN SMEAR FLAG 1
[2024-09-07 09:20] LABS: Estimated Average Glucose 131 mg/dL; Hemoglobin A1C 138.2265 umol/L; Hemoglobin A1c % 6.2 % (<6.0); Total Hemoglobin (HGBA1C) 3132.9539 umol/L
[2024-09-07 09:26] LABS: Appearance Urine Clear; Color Urine Yellow; Glucose Urine UA Negative (Negative); Leukocyte Esterase Urine Negative (Negative); Nitrite Urine Negative (Negative); PH 5.5 (5.0-9.0); Urine Blood Negative (Negative); Urine Ketones Negative (Negative); Urine Protein Negative (Neg-Trace)
[2024-09-07 09:37] LABS: White Blood Count 9.4 X10*3/uL (4.8-10.8)
[2024-09-07 09:38] LABS: Mean Platelet Volume 9.8 fL (9.4-12.3); Platelet Count 233 X10*3/uL (160-400); SLIDE REVIEW VERIFIED
[2024-09-07 09:48] LABS: Alanine Aminotransferase 31 U/L (0-31); Albumin Level 4.2 g/dL (3.5-5.0); Alkaline Phosphatase 57 U/L (39-117); Anion Gap 13 (12-20); Aspartate Amino Transferase 46 U/L (5-31); Bilirubin Total 0.3 mg/dL (0.0-1.0); Blood Urea Nitrogen 19 mg/dL (9-16); Calcium 9.4 mg/dL (8.4-10.2); Carbon Dioxide 21 mmol/L (22-29); Chloride 111 mmol/L (96-108); Cholesterol 124 mg/dL (<200); Estimated Glomerular Filt Rate > 60; Glucose Fasting 121 mg/dL (60-99); HDL Cholesterol 34 mg/dL (>40); LDL Cholesterol Calculated 69 mg/dL (<100); Potassium 4.5 mmol/L (3.3-5.1); Sodium 140 mmol/L (135-145); Total Protein 7.9 g/dL (6.5-8.0); Triglycerides 107 mg/dL (<150)
[2024-09-07 09:54] LABS: Creatinine Urine 111.72 mg/dL; Microalbum/Creatinine Ratio Ur 16.1 ug/mg cr (<30)
[2024-09-07 10:50] LABS: Folate 12.5 ng/mL (> or = 4.0); TSH reflex Free T4 0.56 uIU/mL (0.32-4.0); Vitamin B12 396 pg/mL (200-900); Vitamin D 25-OH Total 43.5 ng/mL (>30)
== END 2024-09-07 08:22 | disposition home or self-care (01) ==
LOC: HO.LAB 08:21
PROVIDERS: PCP Internal Medicine; Visit Provider Internal Medicine
DX: E11.9 Type 2 diabetes mellitus without complications (principal); D64.9 Anemia, unspecified; E78.00 Pure hypercholesterolemia, unspecified; R30.0 Dysuria; E53.8 Deficiency of other specified B group vitamins; E55.9 Vitamin D deficiency, unspecified
CPT/HCPCS: 36415; 80053; 80061; 81003; 82043; 82306; 82570; 82607; 82746; 83036; 84443; 85025

== ENCOUNTER 2024-12-26 08:47 | Outpatient (REF) | payer OTHER, SELFPAY ==
[2024-12-26 08:59] LABS: MANUAL DIFF FLAG NO
--- OUTSIDE RECORDS SUMMARY | 2024-12-26 09:12 | XMS_ITS | Clinical Summary ---
Author Organization [facility] Address [address] [place] [address] Care Team Providers Care Records Management Engineer Name Role Phone Unavailable Primary Care Provider Unavailabl e Source Comments PLEASE NOTE, if this patient is a minor, it may be UNLAWFUL to discuss sensitive information that is contained in these records (such as FAMILY PLANNING, MENTAL HEALTH or SUBSTANCE ABUSE) with the minor patient's parent or other person without the patient's specific authorization.[facility] Social History Tobacco Use Types Packs/Day Years Used Date Smoking Tobacco: Never Assessed Social Connections Answer Date Recorded Social Connections and Isolation 0 08/26/2021 Financial Resource Strain Answer Date R ecorded Financial Resource Strain 0 2020 Stress Answer Date Recorded Stress 0 08/26/2021 Physical Activity Answer Date Recorded Physical Activity 0 08/26/2021 Food Insecurity Answer Date Recorded Food 0 08/26/2021 Transportation Needs Answer Date Record ed Transportation 0 08/26/2021 Housing Stability Answer Date Recorded Housing 0 08/26/2021 Safety and Environment Answer Date Romero rded Safety 0 08/26/2021 Utilities Answer Date Recorded Utilities 0 08/26/2021 Employment Answer Date Recorded Employment 0 08/26/2021 Comments Unknown Sex and Gender Information Value Date Recorded Sex Assigned at Not on file Legal Sex Female 8:31 AM PST Gender Identity Not on file Sexual Orientation Not on file Plan of Treatment Not on file Insurance [place]
[2024-12-26 09:37] LABS: Basophils Absolute Auto 0.1 X10*3/uL (0.0-0.2); Basophils Percent Auto 0.8 % (0-2); Eosinophils Absolute Auto 0.3 X10*3/uL (0.0-0.4); Eosinophils Percent Auto 3.1 % (0-4); Hematocrit 40.6 % (37.0-47.0); Hemoglobin 13.5 g/dl (12.0-16.0); Imm Gran Abs Auto 0.14 X10*3/uL (0.00-0.03); Imm Gran Pct Auto 1.5 % (0.0-0.4); Lymphocytes Absolute Auto 4.9 X10*3/uL (1.2-4.9); Lymphocytes Percent Auto 50.9 % (20-40); Mean Corpuscular HGB Conc 33.3 g/dl (31.0-35.0); Mean Corpuscular Hemoglobin 29.4 pg (27.0-33.0); Mean Corpuscular Volume 88.5 fL (80.0-98.0); Mean Platelet Volume 9.4 fL (9.4-12.3); Monocytes Absolute Auto 0.7 X10*3/uL (0.1-1.2); Monocytes Percent Auto 7.6 % (2-11); Neutrophils Absolute Auto 3.5 x10*3/uL (2.0-8.3); Neutrophils Percent Auto 36.1 % (45-73); Platelet Count 259 X10*3/uL (160-400); Red Blood Count 4.59 X10*6/uL (4.20-5.50); White Blood Count 9.6 X10*3/uL (4.8-10.8)
[2024-12-26 10:36] LABS: Alanine Aminotransferase 45 U/L (0-31); Albumin Level 4.5 g/dL (3.5-5.0); Alkaline Phosphatase 78 U/L (39-117); Anion Gap 12 (12-20); Aspartate Amino Transferase 49 U/L (5-31); Bilirubin Total 0.4 mg/dL (0.0-1.0); Blood Urea Nitrogen 22 mg/dL (9-16); Calcium 9.4 mg/dL (8.4-10.2); Carbon Dioxide 26 mmol/L (22-29); Chloride 109 mmol/L (96-108); Cholesterol 129 mg/dL (<200); Estimated Glomerular Filt Rate > 60; Glucose Fasting 131 mg/dL (60-99); HDL Cholesterol 38 mg/dL (>40); LDL Cholesterol Calculated 66 mg/dL (<100); Potassium 4.2 mmol/L (3.3-5.1); Sodium 143 mmol/L (135-145); Total Protein 7.6 g/dL (6.5-8.0); Triglycerides 126 mg/dL (<150)
[2024-12-26 10:54] LABS: TSH reflex Free T4 2.03 uIU/mL (0.32-4.0)
[2024-12-26 10:55] LABS: Appearance Urine Clear; Color Urine Yellow; Glucose Urine UA Negative (Negative); Leukocyte Esterase Urine Negative (Negative); Nitrite Urine Negative (Negative); Specific Gravity - Urine 1.015 (1.005-1.025); Urine Blood Negative (Negative); Urine Ketones Negative (Negative); Urine Protein Negative (Neg-Trace)
== END 2024-12-26 08:48 | disposition home or self-care (01) ==
LOC: HO.LAB 08:47
PROVIDERS: PCP Internal Medicine; Visit Provider Internal Medicine
DX: R30.0 Dysuria (principal); E78.00 Pure hypercholesterolemia, unspecified; D64.9 Anemia, unspecified
CPT/HCPCS: 36415; 80053; 80061; 81003; 84443; 85025

== ENCOUNTER 2025-01-03 15:04 | Outpatient (AMB) | payer OTHER, SELFPAY ==
[2025-01-03 15:29] VITALS: BP 130/78; PULSE 79; O2SAT 98; BMI 27.8
--- NOTE | 2025-01-03 15:29 | MHC.PC.OV ---
Vital Signs 01/03/25 15:29 Height 5 ft 2 in Weight 152 lb BMI 27.8 BP 130/78 Blood Pressure Location Lt brachial Position Right Lateral Pulse 79 Pulse Source Pulse Oximeter Pulse Oximetry (%) 98 Oxygen Delivery Method Room Air Intake Visit Reasons: cardiomyopathy, PAF, hyperlipidemia, insomnia Program Aide Required: No Accompanied by: Self / Same As Patient Allergies clindamycin [CLINDAMYCIN] Allergy (Intermediate, Verified 01/07/25 15:20) RASH latex [LATEX] Allergy (Intermediate, Verified 01/07/25 15:20) RASH/ITCH codeine Allergy (Unknown, Verified 01/07/25 15:20) RASH cortisone Allergy (Unknown, Verified 01/07/25 15:20) FACIAL SWELLING hydromorphone [Dilaudid] Allergy (Unknown, Verified 01/07/25 15:20) Unknown meperidine [Demerol] Allergy (Unknown, Verified 01/07/25 15:20) Unknown morphine Allergy (Unknown, Verified 01/07/25 15:20) Unknown nifedipine Allergy (Unknown, Verified 01/07/25 15:20) Unknown silver [From TEGADERM AG MESH] Allergy (Unknown, Verified 01/07/25 15:20) RASH Penicillins Adverse Reaction (Severe, Verified 01/07/25 15:20) CHEST PAIN oxycodone [OXYCODONE] Adverse Reaction (Intermediate, Verified 01/07/25 15:20) NAUSEA & VOMITING tramadol [TRAMADOL] Adverse Reaction (Intermediate, Verified 01/07/25 15:20) LETHARGY famotidine [From Pepcid] Adverse Reaction (Mild, Verified 01/07/25 15:20) nausa levofloxacin [From LEVAQUIN] Adverse Reaction (Mild, Verified 01/07/25 15:20) arrythmia per patient cephalexin [Keflex] Adverse Reaction (Unknown, Verified 01/07/25 15:20) diarrhea ciprofloxacin [Cipro] Adverse Reaction (Unknown, Verified 01/07/25 15:20) Unknown colchicine Adverse Reaction (Unknown, Verified 01/07/25 15:20) stomach ache ibuprofen [IBUPROFEN] Adverse Reaction (Unknown, Verified 01/07/25 15:20) NAUSEA & VOMITING metronidazole [Flagyl] Adverse Reaction (Unknown, Verified 01/07/25 15:20) Unknown LOBSTER Allergy (Severe, Uncoded 01/07/25 15:20) SWELLING iv contrast Allergy (Mild, Uncoded 01/07/25 15:20) Unknown Darvocet-N 50 Allergy (Unknown, Uncoded 01/07/25 15:20) Unknown Sulfa Adverse Reaction (Unknown, Uncoded 01/07/25 15:20) diarrhea Medication List - Last Reconciled 01/07/25 by Chandana Cottrell MD acetaminophen 1,000 mg PO BID PRN acyclovir 5% 1 appl topical 6XD PRN 7 days [ADULT PULL UPs - MEDIUM size As directed] amlodipine 5 mg PO DAILY apixaban (Eliquis) 5 mg PO BID 90 days aspirin (Adult Aspirin Regimen) 81 mg PO DAILY 90 days celecoxib 200 mg PO DAILY PRN cholecalciferol (vitamin D3) 50 mcg PO DAILY 90 days doxycycline hyclate 100 mg PO BID 7 days dronedarone (Multaq) 400 mg PO BID fenofibrate nanocrystallized (Tricor) 145 mg PO DAILY 90 days flash glucose scanning reader ([employer]) As directed metoprolol succinate ER 25 mg PO DAILY mometasone 0.1% 1 appl topical DAILY PRN montelukast 10 mg PO DAILY 90 days pantoprazole 40 mg PO DAILY 90 days sitagliptin phosphate (Januvia) 50 mg PO DAILY 90 days tetrahydrozoline 0.05% (Visine) 1 drp ophthalmic (eye) TID PRN triazolam 0.25 mg PO BEDTIME PRN 30 days valsartan 80 mg PO DAILY 90 days Tobacco use date assessed: 01/03/25 Fall risk assessment: No Falls in past year Last assessed Fall Risk: 01/03/25 Dental Screening Dental Screen Date: 01/03/25 Did you have a dental visit in the last 12 months?: No Did you have a dental problem in the last 6 months where you did not have access to dental care?: No Was dental information given to patient?: No HPI cardiomyopathy, PAF, hyperlipidemia, insomnia HPI Details Patient comes in today for her follow up visit States that she still feels very fatigued often lately She has also been experiencing recurrent headaches lately; denies any dizziness Denies any chest pains, no increased shortness of breath No nausea/vomiting, no abdominal pain No change in bowel habits noted Adds that she has been experiencing recurrent pain over her right foot, mostly over the proximal dorsal aspect of the foot Patient denies any recent injury or trauma to her right foot and she denies noticing any swelling of her foot She needs a few of her Rx refilled Patient had her follow up labs done last week - to discuss her results [facility] Medical History Insomnia Mitral stenosis Vitamin D deficiency Urinary incontinence Type 2 diabetes mellitus Asthma Overweight (BMI 25.0-29.9) Renal cell carcinoma of right kidney GERD without esophagitis Anxiety Osteoarthritis of left knee Impaired fasting glucose Paroxysmal atrial fibrillation Benign essential hypertension Mixed hyperlipidemia Surgical History History of maze procedure Status post mitral valve replacement S/P cardiac cath (~08/2020) History of right nephrectomy History of surgery History of surgery H/O nephrostomy H/O cardiac radiofrequency ablation History of tooth extraction History of hysterectomy History of section Family History Father Cancer Mother Stroke Hypertension Sister Cancer Social History Housing: House Alcohol intake: never Patient Tobacco Use Status: Never used Tobacco e-Cigarette/Vaping Use: Never Used Second Hand Smoke Exposure: Yes service: No Current occupational status: retired Cognitive needs: No Hearing needs: No Vision needs: No Questionnaire PHQ-9 Over the last 2 weeks, how often have you been bothered by any of the following problems? 1. Little interest or pleasure in doing things: not at all 2. Feeling down, depressed, or hopeless: not at all 3. Trouble falling or staying asleep, or sleeping too much: not at all 4. Feeling tired or having little energy: not at all 5. Poor appetite or overeating: not at all 6. Feeling bad about yourself - or that you are a failure or have let yourself or your family down: not at all 7. Trouble concentrating on things, such as reading the newspaper or watching television: not at all 8. Moving or speaking so slowly that other people could have noticed. Or the opposite - being so fidgety or restless that you have been moving around a lot more than usual: not at all 9. Thoughts that you would be better off or of hurting yourself in some way: not at all Total score: 0 Depression Screening Interpretation: Negative Depression Screening Done: Yes 31897 - PHQ-9 Billing: Yes Source: Developed by Drs. Leo Quinones, Sandra Gleason, Kennedy Chau and colleagues, with an educational veto from [employer]. Thrive Questionnaire Date Thrive assessed: 01/03/25 I am a: Patient What is your living situation today?: I have a steady place to live Within the past 12 months, did the food you bought not last and you didn't have the money to get more?: Never true Within the past 12 months, did you worry whether your food would run out before you got money to buy more?: Never true Do you have trouble paying for medicines?: No Do you have trouble getting transportation to medical appointments?: No Do you have trouble paying your heating and electricity bill?: No Do you have trouble taking care of your child, family member or friend?: No Do you have trouble with day-to-day activities such as bathing, preparing meals, shopping, managing finances, etc.?: No Are you currently unemployed and looking for a job?: No Are you interested in more education?: No Please select the resources that you would like help with: None Currently or been in a relationship where the following occur: No concerns reported THRIVE Score: 0 AUDIT C Alcohol Use Questionnaire (AUDIT-C) 1. How often do you have a drink containing alcohol?: Never 3. How often do you have six or more drinks on one occasion?: Never Total Score: 0 Score Reviewed/Action Taken: Yes MACO-7 AMB Questionnaire MACO-7 Date MACO - 7 assessed: 01/03/25 Feeling nervous, anxious, or on edge: 0 = Not at all Not being able to stop or control worryin = Not at all Worrying too much about different things: 0 = Not at all Trouble relaxin = Not at all Being so restless that it is hard to sit still: 0 = Not at all Becoming easily annoyed or irritable: 0 = Not at all Feeling afraid as if something awful might happen: 0 = Not at all Total MACO-7 score (0-4 normal; 5-9 mild; 10-14 moderate; 15-21 severe): 0 Source: Developed by Drs. Leo Quinones, Sandra Gleason, Kennedy Chau and colleagues, with an educational veto from [employer]. MACO-7 Assessment Billing MACO-7 Assessment Tool: MACO-7 Assessment 77524 Review of Systems Const Denies chills, Reports fatigue, Denies fever(s), Reports headache(s) (recurrent) and Reports weakness ENT Denies dysphagia, Denies dizziness, Denies otalgia, Reports headache(s) (recurrent), Denies neck pain, Denies odynophagia and Denies sore throat Card Denies chest pain, Denies palpitations and Reports dyspnea on exertion (mild) Resp Denies chest congestion, Denies cough and Reports dyspnea on exertion (mild) GI Denies abdominal pain, Denies constipation, Denies dysphagia, Denies heartburn, Denies diarrhea, Denies nausea, Denies odynophagia and Denies vomiting Denies difficulty voiding, Denies nocturia, Denies dysuria and Denies urinary urgency Musc Denies back pain and Denies neck pain Skin/Breast Denies rash Neuro Denies dizziness, Reports headache(s) (recurrent) and Reports weakness Endo Reports fatigue and Denies palpitations Physical exam (Primary Care) Vital Signs: Last Vital Signs Pulse 79 01/03/25 15:29 BP 130/78 01/03/25 15:29 Pulse Ox 98 01/03/25 15:29 Oxygen Delivery Method Room Air 01/03/25 15:29 BMI result Body Mass Index 27.8 Tobacco/Smoking Status: Tobacco use Status Tobacco use date assessed 01/03/25 01/03/25 15:35 Patient Tobacco Use Status Never used Tobacco 01/03/25 15:35 e-Cigarette/Vaping Use Never Used 01/03/25 15:35 PHQ-9: PHQ-9 Score PHQ-9: Total score 0 01/04/25 06:13 Depression Screening Interpretation: Negative Thrive Assessment: Date of Thrive Assessment Date Thrive assessed 01/03/25 01/03/25 15:35 Currently or been in a relationship where the following occur: No concerns reported Const General: no acute distress and alert HENMT Ears: TM's normal bilaterally and EAC's normal Throat: Yes posterior oropharynx normal and Yes tonsils normal (no TP congestion noted) Neck Neck: Yes supple and No lymphadenopathy Thyroid: Thyroid normal Resp Auscultation: clear to auscultation bilaterally, no rales and no wheezes Cardio Rate: regular rate Rhythm: regular rhythm Heart sounds: no murmurs GI Palpation (GI): Soft to palpation and nontender Auscultation: normal bowel sounds General: Yes no CVA tenderness Back/Spine/Pelvis Back: no CVA tenderness Thoracic/Lumbar Spine: No lumbar spinal tenderness Skin Rashes: no rashes Extrem General: Yes no clubbing, cyanosis or edema Results Reviewed Results Reviewed: Laboratory Tests 12/26/24 12/26/24 08:56 08:58 WBC 9.6 Hgb 13.5 Hct 40.6 Plt Count 259 Sodium 143 Potassium 4.2 Creatinine 0.81 Estimated GFR > 60 Fasting Glucose 131 H Calcium 9.4 AST 49 H ALT 45 H Triglycerides 126 Cholesterol 129 LDL Cholesterol, Calc 66 HDL Cholesterol 38 L TSH 2.03 Ur Specific [place] 1.015 Urine Protein Negative Urine Glucose (UA) Negative Urine Blood Negative Urine Nitrite Negative Ur Leukocyte Esterase Negative Coding Level of Care Code Est Pt Level 4 (85835) Complex EM visit Add On G2211 Diagnoses Nonrheumatic mitral valve stenosis I34.2 Cardiac valve disease etiology: nonrheumatic Paroxysmal atrial fibrillation I48.0 Mixed hyperlipidemia E78.2 Type 2 diabetes mellitus without complication, without long-term current use of insulin E11.9 Diabetes mellitus complication status: without complication Diabetes mellitus assisted insulin use: without keno terminal operator use Benign essential hypertension I10 Mild intermittent asthma without complication J45.20 Asthma complication type: uncomplicated Asthma persistence: intermittent Asthma severity: mild GERD without esophagitis K21.9 Vitamin D deficiency E55.9 Right foot pain M79.671 Primary osteoarthritis of left knee M17.12 Osteoarthritis type: primary Insomnia, unspecified type G47.00 Insomnia type: unspecified Overweight (BMI 25.0-29.9) E66.3 Additional Codes MACO-7 Assessment Billing - MACO-7 Assessment Tool: MACO-7 Assessment 65127 ([id number]) PHQ-9 - 47638 - PHQ-9 Billing: Yes ([id number]) Assessment & Plan Assessment & Plan (1) Mitral stenosis: Code(s): I05.0 - Rheumatic mitral stenosis Category: Medical Qualifiers: Cardiac valve disease etiology: nonrheumatic Qualified Code(s): I34.2 - Nonrheumatic mitral (valve) stenosis Plan: S/P MVR with a 25 mm MITRIS bovine pericardial prosthesis on 03/28/2024 at [facility] for severe rheumatic mitral stenosis with symptoms Patient was on warfarin and aspirin therapy for a total of 3 months postop, after which she was switched over to Eliquis 5 mg BID She also completed cardiac rehab, which she states helped somewhat Follow up with cardiology as scheduled (2) Paroxysmal atrial fibrillation: Comment: S/P ablation. Status post Maze procedure, March 2024 in conjunction with mitral valve replacement Code(s): I48.0 - Paroxysmal atrial fibrillation Category: Medical Plan: S/P ablation; she also underwent left-sided MAZE procedure with amputation of the left atrial appendage at [facility] on 03/28/2024 when she had her mitral valve replacement surgery done Continue Multaq 400 mg BID; she is also on Metoprolol ER 25 mg QD and Amlodipine 5 mg QD Continue Eliquis 5 mg BID Follow up with cardiology as scheduled (3) Mixed hyperlipidemia: Code(s): E78.2 - Mixed hyperlipidemia Category: Medical Plan: Results of her labs done last week reviewed and discussed with patient Reinforced low cholesterol diet Continue Fenofibrate 145 mg QD Will recheck her labs and fasting lipids in 4 months for follow up (4) Type 2 diabetes mellitus: Code(s): E11.9 - Type 2 diabetes mellitus without complications Category: Medical Qualifiers: Diabetes mellitus complication status: without complication Diabetes mellitus keno terminal operator insulin use: without keno terminal operator use Qualified Code(s): E11.9 - Type 2 diabetes mellitus without complications Plan: Her HgbA1c was at 6.2% when last checked in August 2024 (was previously at 6.1%) - goal is <6.5% Reinforced diabetic diet/ exercise as tolerated Continue Sitagliptin 50 mg QD (5) Benign essential hypertension: Code(s): I10 - Essential (primary) hypertension Category: Medical Plan: Reinforced low-sodium diet -? goal is systolic BP of 120 mm or less Continue Valsartan 80 mg QD, Amlodipine 5 mg QD and Metoprolol ER 25 mg QD She is reminded to continue monitoring her blood pressure regularly (6) Asthma: Code(s): J45.909 - Unspecified asthma, uncomplicated Category: Medical Qualifiers: Asthma complication type: uncomplicated Asthma persistence: intermittent Asthma severity: mild Qualified Code(s): J45.20 - Mild intermittent asthma, uncomplicated Plan: Controlled - continue Montelukast 10 mg Q PM Patient has NOT had to and does not like to use any asthma inhalers as much as possible - states that she often develops side effects when she used her asthma inhalers in the past Notes that her asthma has been well-controlled for years on Montelukast alone and hopes that this will continue for as long as possible (7) GERD without esophagitis: Code(s): K21.9 - Gastro-esophageal reflux disease without esophagitis Category: Medical Plan: Dietary restrictions reinforced Continue Pantoprazole 40 mg QD (8) Vitamin D deficiency: Code(s): E55.9 - Vitamin D deficiency, unspecified Category: Medical Plan: Continue Vitamin D3 2000 units QD (9) Right foot pain: Code(s): M79.671 - Pain in right foot Category: Medical Plan: Will send patient for right foot x-rays for further evaluation (10) Osteoarthritis of left knee: Code(s): M17.12 - Unilateral primary osteoarthritis, left knee Category: Medical Qualifiers: Osteoarthritis type: primary Qualified Code(s): M17.12 - Unilateral primary osteoarthritis, left knee Plan: Continue Acetaminophen 1000 mg BID PRN for pain Follow up with orthopedics as needed (11) Insomnia: Comment: Zolpidem (unable to sleep; weakness; tremors); Doxepin (did not help her sleep) - has been doing well on Triazolam > 20 years Code(s): G47.00 - Insomnia, unspecified Category: Medical Qualifiers: Insomnia type: unspecified Qualified Code(s): G47.00 - Insomnia, unspecified Plan: Sleep hygiene reinforced Continue Triazolam 0.25 mg once a day at bedtime as needed (12) Overweight (BMI 25.0-29.9): Code(s): E66.3 - Overweight Category: Medical Plan: Reinforced diet; exercise and weight loss are not realistic for patient given her multiple comorbidities Plan Follow up in 4 months Orders: Orders Lipid Panel 4 Months E78.00 - Pure hypercholesterolemia, unspecified Microalbumin, Random (w Creat) 4 Months E11.9 - Type 2 diabetes mellitus without complications Vitamin B12 and Folate 4 Months E53.8 - Deficiency of other specified B group vitamins XR foot RT min 3V 01/03/25 M79.671 - Pain in right foot Hemoglobin A1c 4 Months E11.9 - Type 2 diabetes mellitus without complications Complete Blood Count Auto Diff 4 Months D64.9 - Anemia, unspecified TSH reflex Free T4 4 Months E78.00 - Pure hypercholesterolemia, unspecified UA CC w/rflx Micro + Cult 4 Months R30.0 - Dysuria Vitamin D 25-OH Total 4 Months E55.9 - Vitamin D deficiency, unspecified Medications: Changed From apixaban (Eliquis) 5 mg PO BID 90 tabs 3RF To apixaban (Eliquis) 5 mg PO BID 90 days 180 tabs 3RF Refilled sitagliptin phosphate (Januvia) 50 mg PO DAILY 90 days 90 tabs 1RF valsartan 80 mg PO DAILY 90 days 90 tabs 1RF
--- OUTSIDE RECORDS SUMMARY | 2025-01-03 17:53 | XMS_ITS | Clinical Summary ---
Author Organization [facility] Address [address] [place] [address] Care Team Providers Care Truck Cleaner Name Role Phone Unavailable Primary Care Provider [...] Plan of Treatment Not on file Insurance [place]
== END 2025-01-03 16:14 | disposition home or self-care (01) ==
LOC: HO.HMCH 15:05
PROVIDERS: PCP Internal Medicine; Visit Provider Internal Medicine
DX: I34.2 Nonrheumatic mitral (valve) stenosis (principal); I48.0 Paroxysmal atrial fibrillation; E78.2 Mixed hyperlipidemia; E11.9 Type 2 diabetes mellitus without complications; I10 Essential (primary) hypertension; J45.20 Mild intermittent asthma, uncomplicated; K21.9 Gastro-esophageal reflux disease without esophagitis; E55.9 Vitamin D deficiency, unspecified; M79.671 Pain in right foot; M17.12 Unilateral primary osteoarthritis, left knee; G47.00 Insomnia, unspecified; E66.3 Overweight

== ENCOUNTER → 2025-01-03 15:04 | Outpatient (BNVA) | payer OTHER, SELFPAY | PROVIDERS: PCP Internal Medicine; Visit Provider Internal Medicine | DX: I42.9 Cardiomyopathy, unspecified (principal); I48.0 Paroxysmal atrial fibrillation; E78.5 Hyperlipidemia, unspecified; G47.00 Insomnia, unspecified; M79.671 Pain in right foot; I34.2 Nonrheumatic mitral (valve) stenosis; E78.2 Mixed hyperlipidemia; E11.9 Type 2 diabetes mellitus without complications; I10 Essential (primary) hypertension; J45.20 Mild intermittent asthma, uncomplicated; K21.9 Gastro-esophageal reflux disease without esophagitis; E55.9 Vitamin D deficiency, unspecified; M17.12 Unilateral primary osteoarthritis, left knee; E66.3 Overweight; Z68.27 Body mass index [BMI] 27.0-27.9, adult | CPT/HCPCS: 96127; 99212 ==

== ENCOUNTER 2025-01-25 14:47 | Outpatient (AMB) | payer OTHER, SELFPAY ==
--- NOTE | 2025-01-25 14:56 | MHC.OFFVIS ---
Vital Signs 01/25/25 14:57 Height 5 ft 2 in Weight 152 lb 1.903 oz BMI 27.8 BP 140/86 H Blood Pressure Location Lt brachial Position Sitting Pulse 81 Intake Visit Reasons: 6 mth f/u Intake Note: 6 month follow-up with ekg c/o fatigue and afib off and on Corporate Travel Counselor Required: No Allergies clindamycin [CLINDAMYCIN] Allergy (Intermediate, Verified 01/07/25 15:20) RASH latex [LATEX] Allergy (Intermediate, Verified 01/07/25 15:20) RASH/ITCH codeine Allergy (Unknown, Verified 01/07/25 15:20) RASH cortisone Allergy (Unknown, Verified 01/07/25 15:20) FACIAL SWELLING hydromorphone [Dilaudid] Allergy (Unknown, Verified 01/07/25 15:20) Unknown meperidine [Demerol] Allergy (Unknown, Verified 01/07/25 15:20) Unknown morphine Allergy (Unknown, Verified 01/07/25 15:20) Unknown nifedipine Allergy (Unknown, Verified 01/07/25 15:20) Unknown silver [From TEGADERM AG MESH] Allergy (Unknown, Verified 01/07/25 15:20) RASH Penicillins Adverse Reaction (Severe, Verified 01/07/25 15:20) CHEST PAIN oxycodone [OXYCODONE] Adverse Reaction (Intermediate, Verified 01/07/25 15:20) NAUSEA & VOMITING tramadol [TRAMADOL] Adverse Reaction (Intermediate, Verified 01/07/25 15:20) LETHARGY famotidine [From Pepcid] Adverse Reaction (Mild, Verified 01/07/25 15:20) nausa levofloxacin [From LEVAQUIN] Adverse Reaction (Mild, Verified 01/07/25 15:20) arrythmia per patient cephalexin [Keflex] Adverse Reaction (Unknown, Verified 01/07/25 15:20) diarrhea ciprofloxacin [Cipro] Adverse Reaction (Unknown, Verified 01/07/25 15:20) Unknown colchicine Adverse Reaction (Unknown, Verified 01/07/25 15:20) stomach ache ibuprofen [IBUPROFEN] Adverse Reaction (Unknown, Verified 01/07/25 15:20) NAUSEA & VOMITING metronidazole [Flagyl] Adverse Reaction (Unknown, Verified 01/07/25 15:20) Unknown LOBSTER Allergy (Severe, Uncoded 01/07/25 15:20) SWELLING iv contrast Allergy (Mild, Uncoded 01/07/25 15:20) Unknown Darvocet-N 50 Allergy (Unknown, Uncoded 01/07/25 15:20) Unknown Sulfa Adverse Reaction (Unknown, Uncoded 01/07/25 15:20) diarrhea Medication List - Last Reconciled 01/25/25 by Alex Kelly MD acetaminophen 1,000 mg PO BID PRN acyclovir 5% 1 appl topical 6XD PRN 7 days [ADULT PULL UPs - MEDIUM size As directed] amlodipine 5 mg PO DAILY apixaban (Eliquis) 5 mg PO BID 90 days celecoxib 200 mg PO DAILY PRN cholecalciferol (vitamin D3) 50 mcg PO DAILY 90 days doxycycline hyclate 100 mg PO BID PRN dronedarone (Multaq) 400 mg PO BID fenofibrate nanocrystallized (Tricor) 145 mg PO DAILY 90 days flash glucose scanning reader ([employer] Kiesha 2 [place]) As directed metoprolol succinate ER 12.5 mg PO DAILY mometasone 0.1% 1 appl topical DAILY PRN montelukast 10 mg PO DAILY 90 days pantoprazole 40 mg PO DAILY 90 days sitagliptin phosphate (Januvia) 50 mg PO DAILY 90 days tetrahydrozoline 0.05% (Visine) 1 drp ophthalmic (eye) TID PRN triazolam 0.25 mg PO BEDTIME PRN 30 days valsartan 80 mg PO DAILY 90 days HPI Comments Details: Dominga comes for follow-up. She says that has reduction overall exercise capacity. She says she is not able to walk longer distances like she has to before. Not sure if this is related to lack of exercising over the winter although she says she continued to exercise through the winter. She denies any clear worsening shortness of breath. She says that she can not lay flat as she gets short of breath. But has no leg edema, abdominal distention, weight gain, PND. No exertional chest pain. She continues to have symptoms of palpitation of atrial fibrillation that last for a minute or 2. She is bothered by the symptoms but symptoms are not as hard as before or as longest before. She takes her Multaq. No bleeding issues or neurologic events. [facility] Medical History Insomnia Mitral stenosis Vitamin D deficiency Urinary incontinence Type 2 diabetes mellitus Asthma Overweight (BMI 25.0-29.9) Renal cell carcinoma of right kidney GERD without esophagitis Anxiety Osteoarthritis of left knee Impaired fasting glucose Paroxysmal atrial fibrillation Benign essential hypertension Mixed hyperlipidemia Surgical History History of maze procedure Status post mitral valve replacement S/P cardiac cath (~08/2020) History of right nephrectomy History of surgery History of surgery H/O nephrostomy H/O cardiac radiofrequency ablation History of tooth extraction History of hysterectomy History of section Family History Father Cancer Mother Stroke Hypertension Sister Cancer Social History Housing: House Alcohol intake: never Patient Tobacco Use Status: Never used Tobacco e-Cigarette/Vaping Use: Never Used Second Hand Smoke Exposure: Yes service: No Current occupational status: retired Cognitive needs: No Hearing needs: No Vision needs: No Review of Systems Const Denies chills, Denies fatigue, Denies fever(s), Denies frequent falls, Denies weakness, Denies weight gain and Denies weight loss ENT Denies dizziness Card Denies chest pain, Denies leg edema, Denies lightheadedness, Denies palpitations, Denies dyspnea, Denies dyspnea on exertion, Denies orthopnea and Denies other (loss of consciousness) Resp Denies cough, Denies dyspnea and Denies dyspnea on exertion GI Denies hematochezia and Denies change in stool character Musc Denies abnormal gait, Denies muscle weakness, Denies numbness, Denies radiating pain into limb and Denies tingling Neuro Denies abnormal gait, Denies dizziness, Denies frequent falls, Denies numbness, Denies tingling and Denies weakness Endo Denies fatigue and Denies palpitations Physical Exam Vital Signs: Last Vital Signs Pulse 81 01/25/25 14:57 BP 140/86 H 01/25/25 14:57 BMI result Body Mass Index 27.8 Const General: cooperative, comfortable, no acute distress, alert, awake and well groomed Nutritional Appearance: overweight Orientation/consciousness: patient oriented x3 Limitations: no limitations Neck Neck: Yes trachea midline, Yes supple and Yes no JVD Chest Chest palpation & inspection: other (Sternotomy wound is healing well) Resp Effort & Inspection: normal respiratory effort Auscultation: clear to auscultation bilaterally Cardio Jugular venous distension: no JVD Palpation: normal PMI Rate: regular rate Rhythm: regular rhythm Heart sounds: S1 normal heart sound present, S2 normal heart sound present, no click, no gallops and no murmurs GI Auscultation: normal bowel sounds Skin General skin exam: no rashes or lesions noted and ecchymosis Neuro General: patient oriented x3 and no focal motor deficits Extrem General: Yes no clubbing, cyanosis or edema Psych Appearance: grossly normal Affect: Anxious affect present Office Procedures EKG Details: EKG shows normal sinus rhythm with rightward axis otherwise normal EKG 45315-[id number], Complete Assessment & Plan Assessment & Plan (1) Nonischemic cardiomyopathy: Code(s): I42.8 - Other cardiomyopathies Category: Medical Plan: Patient with nonischemic cardiomyopathy post mitral valve replacement with LVEF of 40%. Complains of increasing fatigue and shortness of breath. Also continues to having episodes of atrial fibrillation. No overt signs of fluid overload or congestive heart failure. Question this is due to worsening LV ejection fraction. Will obtain echocardiogram to assess for the same. A blood pressure is also slightly elevated. If her LV systolic function appears continuously depressed will pursue switch to therapy to Entresto. Continue low-dose metoprolol therapy for neurohormonal modulation. Signs and symptoms of heart failure were discussed. (2) Status post mitral valve replacement: Comment: 25 mm pericardial bioprosthetic valve, March 28, 2024 Code(s): Z95.2 - Presence of prosthetic heart valve Category: Surgical Plan: Status post mitral valve replacement, clinically seems to be working well. Continue SBE prophylaxis as per ACC/aha guidelines. Continue full oral anticoagulation, currently on Eliquis. Follow-up echocardiogram as above. (3) Paroxysmal atrial fibrillation: Comment: S/P ablation. Status post Maze procedure, March 2024 in conjunction with mitral valve replacement Code(s): I48.0 - Paroxysmal atrial fibrillation Category: Medical Plan: Paroxysmal atrial fibrillation with multiple episodes intermittently, she says she feels it every day. She does get symptoms but last for only few minutes. Symptoms are not as severe as before. We discussed about options. She has undergone a Maze procedure in the past. Overall I think the success of atrial fibrillation suppression with Multaq is good. If she continues to have worsening symptoms are more prolonged symptoms can consider pursuing alternative antiarrhythmic 6 and/or ablation. Currently on full oral anticoagulation with Eliquis. Will follow up in the clinic in 3 months time, sooner p.r.n.. Thank you for allowing me to partake in her care Orders: Orders CA echo transthoracic complete Today Alex Kelly MD I42.8 - Other cardiomyopathies Medications: Changed From metoprolol succinate ER 25 mg PO DAILY 90 tabs 5RF To metoprolol succinate ER 12.5 mg PO DAILY Chandana Cottrell MD From doxycycline hyclate 100 mg PO BID 7 days 14 caps 0RF To doxycycline hyclate 100 mg PO BID PRN Chandana Cottrell MD Coding Level of Care Code Est Pt Level 4 (89884) Complex EM visit Add On G2211 Diagnoses Nonischemic cardiomyopathy I42.8 Status post mitral valve replacement Z95.2 Paroxysmal atrial fibrillation I48.0 CPT Codes EKG - CPT: 24735-[id number], Complete ([id number])
[2025-01-25 14:57] VITALS: BP 140/86; PULSE 81; BMI 27.8
--- OUTSIDE RECORDS SUMMARY | 2025-01-25 15:33 | XMS_ITS | Clinical Summary ---
Author Organization [facility] Address [address] [place] [address] Care Team Providers Care Masking Machine Operator Name Role Phone Unavailable Primary Care Provider [...] Plan of Treatment Not on file Insurance [place] MED[place]
== END 2025-01-25 15:26 | disposition home or self-care (01) ==
LOC: HO.HCS 14:48
PROVIDERS: PCP Internal Medicine; Visit Provider Internal Medicine Cardiovascular Disease
DX: I42.8 Other cardiomyopathies (principal); Z95.2 Presence of prosthetic heart valve; I48.0 Paroxysmal atrial fibrillation
CPT/HCPCS: 93010; 99214; G2211

== ENCOUNTER → 2025-01-25 14:47 | Outpatient (BNVA) | payer OTHER, SELFPAY | PROVIDERS: PCP Internal Medicine; Visit Provider Internal Medicine Cardiovascular Disease | DX: I42.8 Other cardiomyopathies (principal); I48.0 Paroxysmal atrial fibrillation; Z95.2 Presence of prosthetic heart valve | CPT/HCPCS: 93005; 99212 ==

== ENCOUNTER 2025-02-06 10:44 | Outpatient (REF) | payer OTHER, SELFPAY ==
--- NOTE | ~2025-02-06 | XR_ITS ---
CLINICAL HISTORY: M79.671 - Pain in right foot 3 view right foot Comparison: None Findings: Bones intact. No dislocations. There is a hallux valgus and bunion. No significant arthritic change or erosions. No ankle effusion. No radiopaque foreign body. There are posterior and plantar calcaneal spurs. IMPRESSION: 1. There is a hallux valgus and bunion. 2. There are posterior and plantar calcaneal spurs. This document has been electronically signed by: Art Arita MD on 02/07/2025 11:31:20
--- OUTSIDE RECORDS SUMMARY | 2025-02-06 11:32 | XMS_ITS | Clinical Summary ---
Author Organization [facility] Address [address] [place] [address] Care Team Providers Care Pipe Assembly Worker Name Role Phone Unavailable Primary Care Provider [...] Plan of Treatment Not on file Insurance [place] MEDICAID D[place]
== END 2025-02-06 10:45 | disposition home or self-care (01) ==
LOC: HO.XRAY 10:44
PROVIDERS: PCP Internal Medicine; Visit Provider Internal Medicine
DX: M79.671 Pain in right foot (principal)
CPT/HCPCS: 73630

== ENCOUNTER → 2025-02-06 10:49 | Outpatient (BNV) | payer OTHER, SELFPAY | PROVIDERS: PCP Internal Medicine; Visit Provider Radiology Diagnostic Radiology | DX: M20.11 Hallux valgus (acquired), right foot (principal); M21.611 Bunion of right foot; M77.31 Calcaneal spur, right foot | CPT/HCPCS: 73630 ==

== ENCOUNTER → 2025-03-05 09:58 | Outpatient (REF) | payer OTHER, SELFPAY ==
--- NOTE | 2025-03-05 10:07 | CA_ITS ---
Transthoracic Echocardiogram Patient (Last, First, Middle): Dominga Diaz, Gender: Female Date of : 1955 Age: 69 Procedure Date: 03/05/2025 Procedure Type: Transthoracic Echocardiogram Location: OP Height: 157.48 cm Weight: 68.95 kg BSA: 1.70 m2 Heart Rate: 90 bpm BP: 140 / 84 mmHg Work Distributor: JASSON Referring MD: Alex Kelly MD Symptoms: I42.8 - Other cardiomyopathies Study Quality: Adequate ECG Rhythm: Sinus Conclusions: - The left ventricular systolic function is mild to moderately decreased. The calculated ejection fraction is 42% by biplane method. - A bioprosthetic mitral valve is present. The prosthetic mitral valve appears to be functioning normally. Findings Left Ventricle Normal left ventricular cavity size. The left ventricular systolic function is mild to moderately decreased. The calculated ejection fraction is 42% by biplane method. Diastolic function is indeterminate on the basis of available data. There is mild septal asymmetric hypertrophy. Globally hypokinetic. Right Ventricle Normal right ventricular cavity size. There is mild to moderately decreased right ventricular systolic function. Atria Both atria are normal in size. Aortic Valve There is a normal trileaflet aortic valve. There is no aortic valve stenosis. There is no aortic valve regurgitation. Mitral Valve A bioprosthetic mitral valve is present. The prosthetic mitral valve appears to be functioning normally. There is no mitral valve regurgitation. Mean gradient across the mitral valve 7 mm Hg at 86/Min. Pressure half-time within acceptable range. Pulmonic Valve The pulmonic valve is likely normal. Tricuspid Valve There is trace tricuspid valve regurgitation. There is no evidence of pulmonary hypertension. Great Vessels The asc aorta is normal in size. Venous The inferior vena cava is normal in size and collapses greater than 50% with inspiration. Pericardium/Pleural There is no evidence of pericardial effusion. Prior Study Comparison No significant change compared to prior study dated: 07/03/2024. Measurements 2D Linear Measurements IVSd: 1.12 0.6-0.9/0.6-1.0 cm LVIDd: 4.92 3.9-5.3/4.2-5.9 cm LVIDd Index: 2.89 2.4-3.2/2.2-3.1 cm/m2 LVIDs: 3.11 2.0-3.6 cm LVPWd: 0.78 0.7-1.1 cm LA Diam: 4.70 2.7-3.8/3.0-4.0 cm LAIDs Index: 2.76 1.5-2.3 cm/m2 LV Mass: 205.75 67-162/88-224 g LV Mass Index: 121.03 43-95/49-115 g/m2 LVOT Diam: 1.80 3.0+(-)1.3 cm 2D Systolic Function EF 4C: 45.40 >55% EF 2C: 39.50 >55% EF BiP: 42.00 >55% Mitral Valve MV VTI: 0.41 MV Pk Kamran: 1.84 MV Mn Kamran: 1.26 MV Pk Grad: 14.00 MV Mn Grad: 7.00 MV Pk E: 1.57 MV PK A: 0.93 MV Decel Time: 369.00 E/A: 1.70 E'Lateral: 8.60 E'Medial: 5.84 E/E' Med: 26.90 E/E' Lat: 18.30 PHT: 108.00 MVA PHT: 2.04 MVA Continuity: 0.90 Decel Costilla: 4.41 Aortic Valve AoV Pk Kamran: 1.48 AoV Mn Kamran: 0.98 AoV VTI: 0.24 AoV Pk Grad: 9.00 Aov Mn Grad: 5.00 LAYLA Cont.VTI: 1.55 LVOT LVOT Pk Kamran: 0.86 LVOT Mn Kamran: 0.62 LVOT VTI: 0.15 LVOT Pk Grad: 3.00 LVOT Mn Grad: 2.00 LVOT Diam: 1.80 LVOT Area: 2.54 Diastolic Function MV Pk E: 1.57 MV Pk A: 0.93 E/A: 1.70 E'Medial: 5.84 E/E' Med: 26.90 E' Laterial: 8.60 E/E' Lat: 18.30 Right Ventricle TAPSE (mm): 11.70 TVS' Kamran: 8.90 Tricuspid Valve TR Pk Kamran: 2.28 TR Pk Grad: 21.00 RA Press: 3.00 RVSP: 24.00 Great Vessels Aorta Sinus of Valsalva: 2.90 2.0-3.5 cm Ao Asc: 3.20 2.1-3.4 cm Pulmonary Valve PV Pk Kamran: 1.05 Peak PV Grad: 4.00 Updated in Other Vendor System with Status of Final Obey Bartlett MD electronically signed on 03/06/2025 4:07:27 PM with status of Final
--- OUTSIDE RECORDS SUMMARY | 2025-03-05 10:58 | XMS_ITS | Clinical Summary ---
Author Organization [facility] Address [address] [place] [address] Care Team Providers Care Renewable Energy Consultant Name Role Phone Unavailable Primary Care Provider [...] Plan of Treatment Not on file Insurance [place] MEDICAID DENT[place]
== END ==
LOC: HO.CARD 09:58
PROVIDERS: PCP Internal Medicine; Visit Provider Internal Medicine Cardiovascular Disease
DX: I42.8 Other cardiomyopathies (principal)
CPT/HCPCS: 93306

== ENCOUNTER → 2025-03-05 10:07 | Outpatient (BNV) | payer OTHER, SELFPAY | PROVIDERS: PCP Internal Medicine; Visit Provider Internal Medicine | DX: I42.2 Other hypertrophic cardiomyopathy (principal); I50.9 Heart failure, unspecified; Z95.2 Presence of prosthetic heart valve | CPT/HCPCS: 93306 ==

== ENCOUNTER 2025-04-24 14:38 | Outpatient (AMB) | payer OTHER, SELFPAY ==
--- NOTE | 2025-04-24 14:50 | A.OFFVIS_ITS ---
Vital Signs 04/24/25 14:51 Height 5 ft 2 in Weight 152 lb 1.903 oz BMI 27.8 BP 142/80 H Blood Pressure Location Lt brachial Position Sitting Pulse 87 Intake Visit Reasons: 3m follow up EKG Intake Note: 3 month follow-up with ekg after echo feeling ok Product Marketing Programs Manager Required: No Allergies clindamycin (CLINDAMYCIN) Allergy (Intermediate, Verified 01/07/25 15:20) RASH latex (LATEX) Allergy (Intermediate, Verified 01/07/25 15:20) RASH/ITCH codeine Allergy (Unknown, Verified 01/07/25 15:20) RASH cortisone Allergy (Unknown, Verified 01/07/25 15:20) FACIAL SWELLING hydromorphone (Dilaudid) Allergy (Unknown, Verified 01/07/25 15:20) Unknown meperidine (Demerol) Allergy (Unknown, Verified 01/07/25 15:20) Unknown morphine Allergy (Unknown, Verified 01/07/25 15:20) Unknown nifedipine Allergy (Unknown, Verified 01/07/25 15:20) Unknown silver (From TEGADERM AG MESH) Allergy (Unknown, Verified 01/07/25 15:20) RASH Penicillins Adverse Reaction (Severe, Verified 01/07/25 15:20) CHEST PAIN oxycodone (OXYCODONE) Adverse Reaction (Intermediate, Verified 01/07/25 15:20) NAUSEA & VOMITING tramadol (TRAMADOL) Adverse Reaction (Intermediate, Verified 01/07/25 15:20) LETHARGY famotidine (From Pepcid) Adverse Reaction (Mild, Verified 01/07/25 15:20) nausa levofloxacin (From LEVAQUIN) Adverse Reaction (Mild, Verified 01/07/25 15:20) arrythmia per patient cephalexin (Keflex) Adverse Reaction (Unknown, Verified 01/07/25 15:20) diarrhea ciprofloxacin (Cipro) Adverse Reaction (Unknown, Verified 01/07/25 15:20) Unknown colchicine Adverse Reaction (Unknown, Verified 01/07/25 15:20) stomach ache ibuprofen (IBUPROFEN) Adverse Reaction (Unknown, Verified 01/07/25 15:20) NAUSEA & VOMITING metronidazole (Flagyl) Adverse Reaction (Unknown, Verified 01/07/25 15:20) Unknown LOBSTER Allergy (Severe, Uncoded 01/07/25 15:20) SWELLING iv contrast Allergy (Mild, Uncoded 01/07/25 15:20) Unknown Darvocet-N 50 Allergy (Unknown, Uncoded 01/07/25 15:20) Unknown Sulfa Adverse Reaction (Unknown, Uncoded 01/07/25 15:20) diarrhea Medication List - Last Reconciled 04/24/25 by Alex Kelly MD acetaminophen 1,000 mg PO BID PRN acyclovir 5% 1 appl topical 6XD PRN 7 days [ADULT PULL UPs - MEDIUM size As directed] amlodipine 5 mg PO DAILY apixaban (Eliquis) 5 mg PO BID 90 days celecoxib 200 mg PO DAILY PRN cholecalciferol (vitamin D3) 50 mcg PO DAILY 90 days doxycycline hyclate 100 mg PO BID PRN dronedarone (Multaq) 400 mg PO BID fenofibrate nanocrystallized (Tricor) 145 mg PO DAILY 90 days flash glucose scanning reader ([employer] Kiesha 2 [place]) As directed metoprolol succinate ER 12.5 mg PO DAILY mometasone 0.1% 1 appl topical DAILY PRN montelukast 10 mg PO DAILY 90 days pantoprazole 40 mg PO DAILY 90 days sitagliptin phosphate (Januvia) 50 mg PO DAILY 90 days tetrahydrozoline 0.05% (Visine) 1 drp ophthalmic (eye) TID PRN triazolam 0.25 mg PO BEDTIME PRN 30 days valsartan 80 mg PO DAILY 90 days HPI Comments Details: Dominga comes for follow-up. He is doing very well from cardiac perspective. She denies any cardiac symptoms of prolonged palpitations currently. However a month ago while she did something over exertional she had episode of atrial fibrillation that lasted for about 3 days. She says she feels weak and tired when she goes into atrial fibrillation. He feels short of breath. No other otherwise symptoms of orthopnea, PND, leg edema, worsening shortness of breath. Blood pressure remains in the 140s. She denies any lightheadedness, syncope. No exertional chest pain. No bleeding issues or neurologic events. [facility] Medical History Insomnia Mitral stenosis Vitamin D deficiency Urinary incontinence Type 2 diabetes mellitus Asthma Overweight (BMI 25.0-29.9) Renal cell carcinoma of right kidney GERD without esophagitis Anxiety Osteoarthritis of left knee Impaired fasting glucose Paroxysmal atrial fibrillation Benign essential hypertension Mixed hyperlipidemia Surgical History History of maze procedure Status post mitral valve replacement S/P cardiac cath (~08/2020) History of right nephrectomy History of surgery History of surgery H/O nephrostomy H/O cardiac radiofrequency ablation History of tooth extraction History of hysterectomy History of section Family History Father Cancer Mother Stroke Hypertension Sister Cancer Social History Housing: House Alcohol intake: never Patient Tobacco Use Status: Never used Tobacco e-Cigarette/Vaping Use: Never Used Second Hand Smoke Exposure: Yes service: No Current occupational status: retired Cognitive needs: No Hearing needs: No Vision needs: No Review of Systems Const Denies chills, Denies fatigue, Denies fever(s), Denies frequent falls, Denies weakness, Denies weight gain and Denies weight loss ENT Denies dizziness Card Denies chest pain, Denies leg edema, Denies lightheadedness, Denies palpitations, Denies dyspnea, Denies dyspnea on exertion, Denies orthopnea and Denies other (loss of consciousness) Resp Denies cough, Denies dyspnea and Denies dyspnea on exertion GI Denies hematochezia and Denies change in stool character Musc Denies abnormal gait, Denies muscle weakness, Denies numbness, Denies radiating pain into limb and Denies tingling Neuro Denies abnormal gait, Denies dizziness, Denies frequent falls, Denies numbness, Denies tingling and Denies weakness Endo Denies fatigue and Denies palpitations Physical Exam Vital Signs: Last Vital Signs Pulse 87 04/24/25 14:51 BP 142/80 H 04/24/25 14:51 BMI result Body Mass Index 27.8 Const General: cooperative, comfortable, no acute distress, alert, awake and well groomed Nutritional Appearance: overweight Orientation/consciousness: patient oriented x3 Limitations: no limitations Neck Neck: Yes trachea midline, Yes supple and Yes no JVD Chest Chest palpation & inspection: other (Sternotomy wound is healing well) Resp Effort & Inspection: normal respiratory effort Auscultation: clear to auscultation bilaterally Cardio Jugular venous distension: no JVD Palpation: normal PMI Rate: regular rate Rhythm: regular rhythm Heart sounds: S1 normal heart sound present, S2 normal heart sound present, no click, no gallops and no murmurs GI Auscultation: normal bowel sounds Skin General skin exam: no rashes or lesions noted and ecchymosis Neuro General: patient oriented x3 and no focal motor deficits Extrem General: Yes no clubbing, cyanosis or edema Psych Appearance: grossly normal Affect: Anxious affect present Office Procedures EKG Details: EKG shows normal sinus rhythm with rightward axis otherwise normal EKG [id number], Complete Assessment & Plan Assessment & Plan (1) Nonischemic cardiomyopathy: Code(s): I42.8 - Other cardiomyopathies Category: Medical Plan: Nonischemic cardiomyopathy with [id number]-[id number] LV systolic dysfunction without symptoms of congestive heart failure. Clinically doing well. NYHA class 2 symptoms. Continue with neurohormonal modulation with metoprolol as well as valsartan therapy. Will uptitrate valsartan therapy, see below. Signs and symptoms of heart failure were discussed. Continue rhythm control approach. 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 Has done well since mitral valve replacement. No heart failure symptoms. Continue full oral anticoagulation Eliquis, see below. SBE prophylaxis as per ACC/aha guidelines. (3) Paroxysmal atrial fibrillation: Comment: S/P ablation. Status post Maze procedure, March 2024 in conjunction with mitral valve replacement Code(s): I48.0 - Paroxysmal atrial fibrillation Category: Medical Plan: Paroxysmal atrial fibrillation status post Maze procedure but had recurrence. Currently on Multaq therapy with predominantly maintenance of rhythm. Has done well with rhythm control approach will continue pursue rhythm control approach. Continue Multaq therapy. EKGs every 3 months. Continue full oral anticoagulation, currently on Eliquis 5 mg b.i.d.. (4) Benign essential hypertension: Code(s): I10 - Essential (primary) hypertension Category: Medical Plan: Hypertension with borderline control. Will uptitrate valsartan to 160 mg daily. Continue to uptitrate as tolerated. Target goal blood pressure less than 130 mm of Hg systolic. Low-salt diet was discussed. Stress mitigation strategies were discussed. Advised to monitor blood pressure at home maintain a log. Will follow up in the clinic in 3 months time for EKG in 6 months with me. Thank you for allowing me to partake in her care Medications: New metoprolol succinate ER 12.5 mg (1/2 x 25 mg) PO DAILY 60 tabs 3RF valsartan 160 mg PO DAILY 90 tabs 3RF Discontinued valsartan Discontinued Reason: Doctor's Order 80 mg PO DAILY 90 days 90 tabs 1RF Coding Level of Care Code Est Pt Level 4 (85890) Complex EM visit Add On G2211 Diagnoses Nonischemic cardiomyopathy I42.8 Status post mitral valve replacement Z95.2 Paroxysmal atrial fibrillation I48.0 Benign essential hypertension I10 CPT Codes EKG - CPT: 56528-[id number], Complete ([id number])
[2025-04-24 14:51] VITALS: BP 142/80; PULSE 87; BMI 27.8
--- OUTSIDE RECORDS SUMMARY | 2025-04-24 15:31 | XMS_ITS | Clinical Summary ---
Author Organization [facility] Address [address] [place] [address] Care Team Providers Care Pick And Shovel Worker Name Role Phone Unavailable Primary Care [...] Plan of Treatment Not on file Insurance [place] MED[place] DENT[place]
--- OUTSIDE RECORDS SUMMARY | 2025-04-24 15:32 | XMS_ITS | Clinical Summary ---
Author Organization [facility] Address [address] [address] Phone Care Team Providers Care Vice President Tax Name Role Phone Chandana Cottrell MD Primary Care Provider [phone] Allergies Active Allergy Reactions Criticality Noted Date Comments Clindamycin Hcl 06/22/2017 Codeine 06/22/2017 Hydrocortisone 06/22/2017 Rosuvastatin 06/22/2017 Propoxyphene N-Acetaminophen 017 Meperidine 06/22/2017 Cephalexin 06/22/2017 Latex, Natural Rubber 06/22/2017 Morphine 06/22/2017 Allergic to all narcotis Nifedipine 06/22/2017 Oxycodone [id number] 06/22/20 17 Penicillins 06/22/2017 Sulfa (Sulfonamide Antibiotics) 06/22/2017 Tramadol 06/22/2017 Medications fenofibrate (TRICOR) 145 MG tablet Take 145 mg by mouth daily. Active pantoprazole (PROTONIX) 40 MG tablet Take 40 mg by mouth daily. Active celecoxib (CELEBREX) 100 MG capsule Take 200 mg by mouth 2 (two) times a day. Active triazolam (HALCION) 0.25 MG tablet Take 0.25 mg by mouth nightly as needed. Active acetaminophen (TYLENOL) 325 mg tablet Take 650 mg by mouth every 6 (six) hours as needed for mild pain. Active valsartan (DIOVAN) 160 MG tablet Take 160 mg by mouth daily. Active dronedarone (MULTAQ) 400 mg tablet Take 400 mg by mouth 2 (two) times a day. Active warfarin (COUMADIN) 5 MG tablet Take 5 mg by mouth daily. Active doxycycline hyclate (VIBRAMYCIN) 100 MG capsule Take 100 mg by mouth 2 (two) times a day. Active montelukast (SINGULAIR) 10 mg tablet Take 10 mg by mouth nightly. Active Social History Tobacco Use Types Packs/Day Years Used Date Smoking Tobacco: Never Smokeless Tobacco: Never Education Answer Date Recorded Are you interested in more education? Not on fredrick e 01/08/2023 Are you concerned about learning? Not on file 01/08/2023 No 01/08/2023 No 01/08/2023 Digital Access Answer Date Recorded No 02/06/2023 No 02/06/2023 No 02/06/2023 Reliable internet access at home? Not on file 02/06/2023 Device with a working camera? Not on file Comments Unknown Sex and Gender Information Value Date Recorded Sex Assigned at Not on file Legal Sex Female 10:40 AM EDT Gender Identity Not on file Sexual Orientation Not on file Last Filed Vital Signs Vital Sign Reading Time Taken Comments Blood Pressure 171/106 06/22/2017 11:10 AM EDT Pulse 66 06/22/2017 11:10 AM EDT Temperature - - Respiratory Rate - - Oxygen Saturation - - Inhaled Oxygen Concentration - - Weight 70.7 kg (155 lb 14.4 oz) 017 11:10 AM EDT Height - - Body Mass Index - - Plan of Treatment Health Maintenance Due Date Last Done Comments Adult Td,Tdap Booster 1956 CREATININE LEVEL 1956 LIPID PANEL 1956 POTASSIUM LEVEL 1956 HEPATITIS C SCREENING 1974 MAMMOGRAM 1996 COLOGUARD 2001 COLONOSCOPY 2001 COLORECTAL CANCER SCREENING 2001 FIT TEST 2001 FOBT 2001 SIGMOIDOSCOPY 2001 VIRTUAL COLONOSCOPY 2001 PNEUMOCOCCAL VACCINES (50+ y ears) (1 of 1 - PCV) 2006 ZOSTER VACCINES (1 of 2) 2006 DEPRESSION SCREENING 06/22/2018 06/22/2017 OSTEOPOROSIS SCREENING INITI AL (ONE-TIME) 2021 COVID-19 VACCINE (2 - 2023-2 5 season) 2024 01/10/2021 RSV VACCINE (1 - 1-dose 75+ series) 2031 SMOKING STATUS SCREENING (On ce After 26 Yrs) Completed 06/22/2017 HEPATITIS A VACCINES Aged Out No long er eligible based on patient's age to complete this topic HIB VACCINES Aged Out No longer eligi ble based on patient's age to complete this topic MENINGOCOCCAL VACCINES (ACWY) Aged Out No longer eligible based on patient's age to complete this topic MENINGOCOCCAL VACCINES (B) Aged Out N o longer eligible based on patient's age to complete this topic Medical Devices Not on file Insurance [facility] [address] [place] [address] [facility] [address] [place] [address] [place] [address] [place], [place] [address]O Care Teams Vice President Tax Relationship Specialty Start Date End Date Chandana Cottrell MD [address] [place] [address] [address] [place] [address] PCP - General Internal Medicine 06/03/17 Additional Source Comments The information contained in this document represents components of the legal health record. It is not the complete legal health record.[facility]
--- OUTSIDE RECORDS SUMMARY | 2025-04-24 15:32 | XMS_ITS | Patient Health Record ---
Author Organization [facility] Address [address] [place] [id number] Care Team Providers Care Conference Services Coordinator Name Role Phone Leo Oconnor [phone] Reason For Referral No Information Plan Of Treatment No Information
== END 2025-04-24 15:24 | disposition home or self-care (01) ==
LOC: HO.HCS 14:39
PROVIDERS: PCP Internal Medicine; Visit Provider Internal Medicine Cardiovascular Disease
DX: I42.8 Other cardiomyopathies (principal); Z95.2 Presence of prosthetic heart valve; I48.0 Paroxysmal atrial fibrillation; I10 Essential (primary) hypertension
CPT/HCPCS: 93010; 99214; G2211

== ENCOUNTER → 2025-04-24 14:38 | Outpatient (BNVA) | payer OTHER, SELFPAY | PROVIDERS: PCP Internal Medicine; Visit Provider Internal Medicine Cardiovascular Disease | DX: I42.8 Other cardiomyopathies (principal); I48.0 Paroxysmal atrial fibrillation; I10 Essential (primary) hypertension; Z95.2 Presence of prosthetic heart valve | CPT/HCPCS: 93005; 99212 ==

== ENCOUNTER 2025-05-01 08:14 | Outpatient (REF) | payer OTHER, SELFPAY ==
[2025-05-01 08:49] LABS: MANUAL DIFF FLAG NO
[2025-05-01 09:46] LABS: Hemoglobin A1C 182.4342 umol/L; Total Hemoglobin (HGBA1C) 3586.2499 umol/L
[2025-05-01 09:59] LABS: Appearance Urine Clear; Glucose Urine UA Negative (Negative); PH 5.5 (5.0-9.0); Specific Gravity - Urine 1.015 (1.005-1.025); UMIC TRIGGER UACC YES
[2025-05-01 10:08] LABS: Hematocrit 41.3 % (37.0-47.0); Hemoglobin 13.8 g/dl (12.0-16.0); Imm Gran Abs Auto 0.17 X10*3/uL (0.00-0.03); Imm Gran Pct Auto 1.9 % (0.0-0.4); Lymphocytes Absolute Auto 3.9 X10*3/uL (1.2-4.9); Mean Corpuscular HGB Conc 33.4 g/dl (31.0-35.0); Mean Corpuscular Hemoglobin 30.2 pg (27.0-33.0); Mean Corpuscular Volume 90.4 fL (80.0-98.0); NRBC Abs Auto 0.000 X10*3/uL (0.0-0.012); NRBC Pct Auto 0.0 /100WBC (0.0-0.2); Platelet Count 175 X10*3/uL (160-400); Red Blood Count 4.57 X10*6/uL (4.20-5.50); White Blood Count 9.1 X10*3/uL (4.8-10.8)
[2025-05-01 10:14] LABS: Cholesterol 134 mg/dL (<200); HDL Cholesterol 29 mg/dL (>40); Triglycerides 181 mg/dL (<150)
[2025-05-01 10:15] LABS: UACC Culture Trigger YES
[2025-05-01 10:29] LABS: Microalbum/Creatinine Ratio Ur 26.9 ug/mg cr (<30)
[2025-05-01 10:39] LABS: Folate 7.2 ng/mL (> or = 4.0); Vitamin B12 527 pg/mL (200-900)
== END 2025-05-01 08:15 | disposition home or self-care (01) ==
LOC: HO.LAB 08:14
PROVIDERS: PCP Internal Medicine; Visit Provider Internal Medicine
DX: E53.8 Deficiency of other specified B group vitamins (principal); E78.00 Pure hypercholesterolemia, unspecified; E11.9 Type 2 diabetes mellitus without complications; D64.9 Anemia, unspecified; E55.9 Vitamin D deficiency, unspecified; R30.0 Dysuria
CPT/HCPCS: 36415; 80061; 81001; 81003; 82043; 82306; 82570; 82607; 82746; 83036; 84443; 85025; 87086

== ENCOUNTER 2025-05-08 15:10 | Outpatient (AMB) | payer OTHER, SELFPAY ==
[2025-05-08 15:13] VITALS: BP 142/90; PULSE 93; TEMP 36.2; O2SAT 96; BMI 27.9
--- NOTE | 2025-05-08 15:13 | MHC.PC.OV ---
Vital Signs 05/08/25 15:13 Height 5 ft 2 in Weight 152 lb 6 oz BMI 27.9 BP 142/90 H Blood Pressure Location Lt brachial Position Sitting Pulse 93 Pulse Source Pulse Oximeter Temp 97.1 F Temp Source Temporal Artery Scan Pulse Oximetry (%) 96 Oxygen Delivery Method Room Air Intake Visit Reasons: 4mth f/u- needs A1C/Breast Cx Screening Allergies clindamycin (CLINDAMYCIN) Allergy (Intermediate, Verified 05/08/25 15:58) RASH latex (LATEX) Allergy (Intermediate, Verified 05/08/25 15:58) RASH/ITCH codeine Allergy (Unknown, Verified 05/08/25 15:58) RASH cortisone Allergy (Unknown, Verified 05/08/25 15:58) FACIAL SWELLING hydromorphone (Dilaudid) Allergy (Unknown, Verified 05/08/25 15:58) Unknown meperidine (Demerol) Allergy (Unknown, Verified 05/08/25 15:58) Unknown morphine Allergy (Unknown, Verified 05/08/25 15:58) Unknown nifedipine Allergy (Unknown, Verified 05/08/25 15:58) Unknown silver (From TEGADERM AG MESH) Allergy (Unknown, Verified 05/08/25 15:58) RASH Penicillins Adverse Reaction (Severe, Verified 05/08/25 15:58) CHEST PAIN oxycodone (OXYCODONE) Adverse Reaction (Intermediate, Verified 05/08/25 15:58) NAUSEA & VOMITING tramadol (TRAMADOL) Adverse Reaction (Intermediate, Verified 05/08/25 15:58) LETHARGY famotidine (From Pepcid) Adverse Reaction (Mild, Verified 05/08/25 15:58) nausa levofloxacin (From LEVAQUIN) Adverse Reaction (Mild, Verified 05/08/25 15:58) arrythmia per patient cephalexin (Keflex) Adverse Reaction (Unknown, Verified 05/08/25 15:58) diarrhea ciprofloxacin (Cipro) Adverse Reaction (Unknown, Verified 05/08/25 15:58) Unknown colchicine Adverse Reaction (Unknown, Verified 05/08/25 15:58) stomach ache ibuprofen (IBUPROFEN) Adverse Reaction (Unknown, Verified 05/08/25 15:58) NAUSEA & VOMITING metronidazole (Flagyl) Adverse Reaction (Unknown, Verified 05/08/25 15:58) Unknown LOBSTER Allergy (Severe, Uncoded 05/08/25 15:58) SWELLING iv contrast Allergy (Mild, Uncoded 05/08/25 15:58) Unknown Darvocet-N 50 Allergy (Unknown, Uncoded 05/08/25 15:58) Unknown Sulfa Adverse Reaction (Unknown, Uncoded 05/08/25 15:58) diarrhea Medication List - Last Reconciled 05/08/25 by Chandana Cottrell MD acetaminophen 1,000 mg PO BID PRN acyclovir 5% 1 appl topical 6XD PRN 7 days [ADULT PULL UPs - MEDIUM size As directed] amlodipine 5 mg PO DAILY apixaban (Eliquis) 5 mg PO BID 90 days celecoxib 200 mg PO DAILY PRN cholecalciferol (vitamin D3) 50 mcg PO DAILY 90 days dronedarone (Multaq) 400 mg PO BID fenofibrate nanocrystallized (Tricor) 145 mg PO DAILY 90 days flash glucose scanning reader ([employer] [address] [place]) As directed metoprolol succinate ER 12.5 mg (1/2 x 25 mg) PO DAILY mometasone 0.1% 1 appl topical DAILY PRN montelukast 10 mg PO DAILY 90 days pantoprazole 40 mg PO DAILY 90 days sitagliptin phosphate (Januvia) 50 mg PO DAILY 90 days tetrahydrozoline 0.05% (Visine) 1 drp ophthalmic (eye) TID PRN triazolam 0.25 mg PO BEDTIME PRN 30 days valsartan 160 mg PO DAILY Tobacco use date assessed: 05/08/25 Fall risk assessment: 1 Fall in past year Last assessed Fall Risk: 05/08/25 Dental Screening Dental Screen Date: 05/08/25 Did you have a dental visit in the last 12 months?: No Did you have a dental problem in the last 6 months where you did not have access to dental care?: No Was dental information given to patient?: Patient has dentist HPI 4mth f/u- needs A1C/Breast Cx Screening HPI Details Patient comes in today for her follow-up visit States that she feels okay She denies any headaches or dizziness Denies any chest pains, no increased shortness of breath No nausea/vomiting, no abdominal pain No change in bowel habits noted She had her follow-up labs done last week - to discuss her results [facility] Medical History Insomnia Mitral stenosis Vitamin D deficiency Urinary incontinence Type 2 diabetes mellitus Asthma Overweight (BMI 25.0-29.9) Renal cell carcinoma of right kidney GERD without esophagitis Anxiety Osteoarthritis of left knee Impaired fasting glucose Paroxysmal atrial fibrillation Benign essential hypertension Mixed hyperlipidemia Surgical History History of maze procedure Status post mitral valve replacement S/P cardiac cath (~08/2020) History of right nephrectomy History of surgery History of surgery H/O nephrostomy H/O cardiac radiofrequency ablation History of tooth extraction History of hysterectomy History of section Family History Father Cancer Mother Stroke Hypertension Sister Cancer Social History Housing: House Alcohol intake: never Patient Tobacco Use Status: Never used Tobacco e-Cigarette/Vaping Use: Never Used Second Hand Smoke Exposure: Yes service: No Current occupational status: retired Cognitive needs: No Hearing needs: No Vision needs: No Questionnaire PHQ-9 Over the last 2 weeks, how often have you been bothered by any of the following problems? 1. Little interest or pleasure in doing things: not at all 2. Feeling down, depressed, or hopeless: not at all 3. Trouble falling or staying asleep, or sleeping too much: not at all 4. Feeling tired or having little energy: not at all 5. Poor appetite or overeating: not at all 6. Feeling bad about yourself - or that you are a failure or have let yourself or your family down: not at all 7. Trouble concentrating on things, such as reading the newspaper or watching television: not at all 8. Moving or speaking so slowly that other people could have noticed. Or the opposite - being so fidgety or restless that you have been moving around a lot more than usual: not at all 9. Thoughts that you would be better off or of hurting yourself in some way: not at all Total score: 0 Depression Screening Interpretation: Negative Depression Screening Done: Yes [address]1911 - PHQ-9 Billing: Yes Source: Developed by Drs. Leo Quinones, SandraKennedy Faith and colleagues, with an educational veto from [employer]. Thrive Questionnaire Date Thrive assessed: 05/08/25 I am a: Patient What is your living situation today?: I have a steady place to live Within the past 12 months, did the food you bought not last and you didn't have the money to get more?: I choose not to answer this question Within the past 12 months, did you worry whether your food would run out before you got money to buy more?: I choose not to answer this question Do you have trouble paying for medicines?: No Do you have trouble getting transportation to medical appointments?: No Do you have trouble paying your heating and electricity bill?: Yes Do you have trouble taking care of your child, family member or friend?: I choose not to answer this question Do you have trouble with day-to-day activities such as bathing, preparing meals, shopping, managing finances, etc.?: Yes Are you currently unemployed and looking for a job?: I choose not to answer this question Are you interested in more education?: I choose not to answer this question Please select the resources that you would like help with: Food and Utilities Currently or been in a relationship where the following occur: No concerns reported THRIVE Score: 1 AUDIT C Alcohol Use Questionnaire (AUDIT-C) 1. How often do you have a drink containing alcohol?: Never 3. How often do you have six or more drinks on one occasion?: Never Total Score: 0 Score Reviewed/Action Taken: Yes MACO-7 AMB Questionnaire MACO-7 Date MACO - 7 assessed: 01/03/25 Feeling nervous, anxious, or on edge: 0 = Not at all Not being able to stop or control worryin = Not at all Worrying too much about different things: 2 = More than half the days Trouble relaxin = Not at all Being so restless that it is hard to sit still: 0 = Not at all Becoming easily annoyed or irritable: 0 = Not at all Feeling afraid as if something awful might happen: 3 = Nearly every day Total MACO-7 score (0-4 normal; 5-9 mild; 10-14 moderate; 15-21 severe): 5 Source: Developed by Sandra West Kurt Kroenke and colleagues, with an educational veto from [employer]. Review of Systems Const Denies chills, Reports fatigue, Denies fever(s) and Denies headache(s) ENT Denies dysphagia, Denies dizziness, Denies otalgia, Denies headache(s), Denies neck pain, Denies odynophagia and Denies sore throat Card Denies chest pain, Denies palpitations and Reports dyspnea on exertion (mild) Resp Denies chest congestion, Denies cough and Reports dyspnea on exertion (mild) GI Denies abdominal pain, Denies constipation, Denies dysphagia, Denies heartburn, Denies diarrhea, Denies nausea, Denies odynophagia and Denies vomiting Denies difficulty voiding, Denies nocturia, Denies dysuria and Denies urinary urgency Musc Denies back pain and Denies neck pain Skin/Breast Denies rash Neuro Denies dizziness and Denies headache(s) Endo Reports fatigue and Denies palpitations Physical exam (Primary Care) Vital Signs: Last Vital Signs Temp 97.1 F 05/08/25 15:13 Pulse 93 05/08/25 15:13 BP 142/90 H 05/08/25 15:13 Pulse Ox 96 05/08/25 15:13 Oxygen Delivery Method Room Air 05/08/25 15:13 BMI result Body Mass Index 27.9 Tobacco/Smoking Status: Tobacco use Status Tobacco use date assessed 05/08/25 05/08/25 15:19 Patient Tobacco Use Status Never used Tobacco 05/08/25 15:19 e-Cigarette/Vaping Use Never Used 05/08/25 15:19 PHQ-9: PHQ-9 Score PHQ-9: Total score 0 05/08/25 22:09 Depression Screening Interpretation: Negative Thrive Assessment: Date of Thrive Assessment Date Thrive assessed 01/03/25 05/08/25 15:19 Currently or been in a relationship where the following occur: No concerns reported Const General: no acute distress and alert HENMT Ears: TM's normal bilaterally and EAC's normal Throat: Yes posterior oropharynx normal and Yes tonsils normal (no TP congestion noted) Neck Neck: Yes supple and No lymphadenopathy Thyroid: Thyroid normal Resp Auscultation: clear to auscultation bilaterally, no rales and no wheezes Cardio Rate: regular rate Rhythm: regular rhythm Heart sounds: no murmurs GI Palpation (GI): Soft to palpation and nontender Auscultation: normal bowel sounds General: Yes no CVA tenderness Back/Spine/Pelvis Back: no CVA tenderness Thoracic/Lumbar Spine: No lumbar spinal tenderness Skin Rashes: no rashes Extrem General: Yes no clubbing, cyanosis or edema Results Reviewed Results Reviewed: Laboratory Tests 05/01/25 05/01/25 08:46 08:48 WBC 9.1 Hgb 13.8 Hct 41.3 Plt Count 175 D Hemoglobin A1c % 6.8 H Triglycerides 181 H Cholesterol 134 LDL Cholesterol, Calc 69 HDL Cholesterol 29 L Vitamin B12 527 25-OH Vitamin D Total 43.5 TSH 2.14 Ur Specific [place] 1.015 Urine Protein Negative Urine Glucose (UA) Negative Urine Blood Negative Urine Nitrite Negative Ur Leukocyte Esterase Small (1+) H Microalb/Creat Ratio 26.9 Coding Level of Care Code Est Pt Level 4 (76338) Diagnoses Nonrheumatic mitral valve stenosis I34.2 Cardiac valve disease etiology: nonrheumatic Paroxysmal atrial fibrillation I48.0 Mixed hyperlipidemia E78.2 Type 2 diabetes mellitus without complication, without long-term current use of insulin E11.9 Diabetes mellitus parts counterman insulin use: without parts counterman use Diabetes mellitus complication status: without complication Benign essential hypertension I10 Mild intermittent asthma without complication J45.20 Asthma severity: mild Asthma persistence: intermittent Asthma complication type: uncomplicated GERD without esophagitis K21.9 Vitamin D deficiency E55.9 Right foot pain M79.671 Primary osteoarthritis of left knee M17.12 Osteoarthritis type: primary Insomnia, unspecified type G47.00 Insomnia type: unspecified Overweight (BMI 25.0-29.9) E66.3 Additional Codes PHQ-9 - 32434 - PHQ-9 Billing: Yes ([id number]) Assessment & Plan Assessment & Plan (1) Mitral stenosis: Code(s): I05.0 - Rheumatic mitral stenosis Category: Medical Qualifiers: Cardiac valve disease etiology: nonrheumatic Qualified Code(s): I34.2 - Nonrheumatic mitral (valve) stenosis Plan: S/P MVR with a 25 mm MITRIS bovine pericardial prosthesis on 03/28/2024 at [facility] for severe rheumatic mitral stenosis with symptoms Patient was on warfarin and aspirin therapy for a total of 3 months postop, after which she was switched over to Eliquis 5 mg BID She also completed cardiac rehab, which she states helped somewhat with her overall symptoms Follow up with cardiology as scheduled (2) Paroxysmal atrial fibrillation: Comment: S/P ablation. Status post Maze procedure, March 2024 in conjunction with mitral valve replacement Code(s): I48.0 - Paroxysmal atrial fibrillation Category: Medical Plan: S/P ablation; she also underwent left-sided MAZE procedure with amputation of the left atrial appendage at [facility] on 03/28/2024 when she had her mitral valve replacement surgery done Continue Multaq 400 mg BID; she is also on Metoprolol ER 25 mg 1/2 tablet QD and Amlodipine 5 mg QD Continue Eliquis 5 mg BID Follow up with cardiology as scheduled (3) Mixed hyperlipidemia: Code(s): E78.2 - Mixed hyperlipidemia Category: Medical Plan: Results of her labs done last week reviewed and discussed with patient Reinforced low cholesterol diet Continue Fenofibrate 145 mg QD Will recheck her labs and fasting lipids in 4 months for follow up (4) Type 2 diabetes mellitus: Code(s): E11.9 - Type 2 diabetes mellitus without complications Category: Medical Qualifiers: Diabetes mellitus parts counterman insulin use: without jail use Diabetes mellitus complication status: without complication Qualified Code(s): E11.9 - Type 2 diabetes mellitus without complications Plan: Her HgbA1c was at 6.8% on her labs done last week She is cautioned that her HgbA1c has been gradually creeping up over the past year, as she was at 6.2% previously in August 2024 - goal is <6.5% Reinforced diabetic diet/ exercise as tolerated Continue Sitagliptin 50 mg QD for now (Rx refilled) as patient would like to try working more on her diet at this time Have advised her that if her HgbA1c does not improve significantly over the next few months, then we may need to increase her Januvia to 100 mg QD at her next visit (5) Benign essential hypertension: Code(s): I10 - Essential (primary) hypertension Category: Medical Plan: Reinforced low-sodium diet -? goal is systolic BP of 120 mm or less Continue Valsartan 80 mg QD, Amlodipine 5 mg QD and Metoprolol ER 12.5 mg QD She is reminded to continue monitoring her blood pressure regularly (6) Asthma: Code(s): J45.909 - Unspecified asthma, uncomplicated Category: Medical Qualifiers: Asthma severity: mild Asthma persistence: intermittent Asthma complication type: uncomplicated Qualified Code(s): J45.20 - Mild intermittent asthma, uncomplicated Plan: Controlled - continue Montelukast 10 mg Q PM Patient has NOT had to and does not like to use any asthma inhalers as much as possible - states that she often develops side effects when she used her asthma inhalers in the past Notes that her asthma has been well-controlled for years on Montelukast alone and hopes that this will continue for as long as possible (7) GERD without esophagitis: Code(s): K21.9 - Gastro-esophageal reflux disease without esophagitis Category: Medical Plan: Dietary restrictions reinforced Continue Pantoprazole 40 mg QD (8) Vitamin D deficiency: Code(s): E55.9 - Vitamin D deficiency, unspecified Category: Medical Plan: Continue Vitamin D3 2000 units QD (9) Right foot pain: Code(s): M79.671 - Pain in right foot Category: Medical Plan: Her right foot x-rays done a few months ago revealed (+) hallux valgus and bunion, as well as posterior and plantar calcaneal spurs Have advised patient that if her foot continues to bother her, we can refer her to Podiatry for further management (10) Osteoarthritis of left knee: Code(s): M17.12 - Unilateral primary osteoarthritis, left knee Category: Medical Qualifiers: Osteoarthritis type: primary Qualified Code(s): M17.12 - Unilateral primary osteoarthritis, left knee Plan: Continue Acetaminophen 1000 mg BID PRN for pain Follow up with orthopedics as needed (11) Insomnia: Comment: Zolpidem (unable to sleep; weakness; tremors); Doxepin (did not help her sleep) - has been doing well on Triazolam > 20 years Code(s): G47.00 - Insomnia, unspecified Category: Medical Qualifiers: Insomnia type: unspecified Qualified Code(s): G47.00 - Insomnia, unspecified Plan: Sleep hygiene reinforced Continue Triazolam 0.25 mg once a day at bedtime as needed (12) Overweight (BMI 25.0-29.9): Code(s): E66.3 - Overweight Category: Medical Plan: Reinforced diet; exercise and weight loss are not realistic for patient given her multiple comorbidities Plan Follow up in 4 months Orders: Orders Hemoglobin A1c 08/18/25 E11.9 - Type 2 diabetes mellitus without complications Lipid Panel 08/18/25 E78.00 - Pure hypercholesterolemia, unspecified UA CC w/rflx Micro + Cult 08/18/25 R30.0 - Dysuria Complete Blood Count Auto Diff 08/18/25 D64.9 - Anemia, unspecified Comprehensive [place]. Panel Fast 08/18/25 E78.00 - Pure hypercholesterolemia, unspecified Microalbumin, Random (w Creat) 08/18/25 E11.9 - Type 2 diabetes mellitus without complications TSH reflex Free T4 08/18/25 E78.00 - Pure hypercholesterolemia, unspecified Vitamin D 25-OH Total 08/18/25 E55.9 - Vitamin D deficiency, unspecified Vitamin B12 and Folate 08/18/25 E53.8 - Deficiency of other specified B group vitamins Medications: Refilled sitagliptin phosphate (Januvia) 50 mg PO DAILY 90 tabs 1RF 90 days
--- OUTSIDE RECORDS SUMMARY | 2025-05-08 16:07 | XMS_ITS | Patient Health Record ---
Author Organization [facility] Address [address] [place] [phone] Care Team Providers Care Cath Lab Nurse Name Role Phone Leo Oconnor [phone] Reason For Referral No Information Plan Of Treatment No Information
--- OUTSIDE RECORDS SUMMARY | 2025-05-08 16:07 | XMS_ITS | Clinical Summary ---
Author Organization [facility] Address [address] [address] Phone Care Team Providers Care Safety Clothing And Equipment Developer Name Role Phone Chandana Cottrell MD Primary Care Provider [phone] Allergies Active Allergy Reactions Criticality Noted Date Comments Clindamycin Hcl 06/22/2017 Codeine 06/22/2017 Hydrocortisone 06/22/2017 Rosuvastatin 06/22/2017 Propoxyphene N-Acetaminophen 017 Meperidine 06/22/2017 Cephalexin 06/22/2017 Latex, Natural Rubber 06/22/2017 Morphine 06/22/2017 Allergic to all narcotis Nifedipine 06/22/2017 Oxycodone [id number] 06/22/20 17 Penicillins 06/22/2017 Sulfa (Sulfonamide Antibiotics) [...] topic Medical Devices Not on file Insurance [facility] [address] [place], [place] [address] [facility] [address] [place] [address] [place] [address] [place], [place] [address] Care Teams Safety Clothing And Equipment Developer Relationship Specialty Start Date End Date Chandana Cottrell MD [address] [place] [address] [address] [place] [address] PCP - General Internal Medicine 06/03/17 Additional Source Comments The information contained in this document represents components of the legal health record. It is not the complete legal health record.[facility]
== END 2025-05-08 16:18 | disposition home or self-care (01) ==
LOC: HO.HMCH 15:11
PROVIDERS: PCP Internal Medicine; Visit Provider Internal Medicine
DX: I34.2 Nonrheumatic mitral (valve) stenosis (principal); I48.0 Paroxysmal atrial fibrillation; E78.2 Mixed hyperlipidemia; E11.9 Type 2 diabetes mellitus without complications; I10 Essential (primary) hypertension; J45.20 Mild intermittent asthma, uncomplicated; K21.9 Gastro-esophageal reflux disease without esophagitis; E55.9 Vitamin D deficiency, unspecified; M79.671 Pain in right foot; M17.12 Unilateral primary osteoarthritis, left knee; G47.00 Insomnia, unspecified; E66.3 Overweight

== ENCOUNTER → 2025-05-08 15:10 | Outpatient (BNVA) | payer OTHER, SELFPAY | PROVIDERS: PCP Internal Medicine; Visit Provider Internal Medicine | DX: I34.2 Nonrheumatic mitral (valve) stenosis (principal); I48.0 Paroxysmal atrial fibrillation; E78.2 Mixed hyperlipidemia; E11.9 Type 2 diabetes mellitus without complications; I10 Essential (primary) hypertension; J45.20 Mild intermittent asthma, uncomplicated; K21.9 Gastro-esophageal reflux disease without esophagitis; E55.9 Vitamin D deficiency, unspecified; M79.671 Pain in right foot; M17.12 Unilateral primary osteoarthritis, left knee; G47.00 Insomnia, unspecified; E66.3 Overweight; Z68.27 Body mass index [BMI] 27.0-27.9, adult | CPT/HCPCS: 96127; 99212 ==

== ENCOUNTER 2025-08-27 08:49 | Outpatient (REF) | payer OTHER, SELFPAY ==
[2025-08-27 09:20] LABS: MANUAL DIFF FLAG NO
[2025-08-27 10:18] LABS: Hematocrit 44.5 % (37.0-47.0); Hemoglobin 14.6 g/dl (12.0-16.0); Imm Gran Abs Auto 0.14 X10*3/uL (0.00-0.03); Imm Gran Pct Auto 1.5 % (0.0-0.4); Lymphocytes Absolute Auto 3.8 X10*3/uL (1.2-4.9); Mean Corpuscular HGB Conc 32.8 g/dl (31.0-35.0); Mean Corpuscular Hemoglobin 30.5 pg (27.0-33.0); Mean Corpuscular Volume 92.9 fL (80.0-98.0); NRBC Abs Auto 0.000 X10*3/uL (0.0-0.012); NRBC Pct Auto 0.0 /100WBC (0.0-0.2); Platelet Count 243 X10*3/uL (160-400); Red Blood Count 4.79 X10*6/uL (4.20-5.50); White Blood Count 9.5 X10*3/uL (4.8-10.8)
[2025-08-27 11:03] LABS: Alanine Aminotransferase 60 U/L (0-31); Albumin Level 5.1 g/dL (3.5-5.0); Alkaline Phosphatase 68 U/L (39-117); Anion Gap 15 (12-20); Aspartate Amino Transferase 71 U/L (5-31); Blood Urea Nitrogen 21 mg/dL (9-16); Calcium 10.2 mg/dL (8.4-10.2); Carbon Dioxide 25 mmol/L (22-29); Chloride 106 mmol/L (96-108); Cholesterol 140 mg/dL (<200); Estimated Glomerular Filt Rate > 60; HDL Cholesterol 40 mg/dL (>40); Potassium 4.3 mmol/L (3.3-5.1); Sodium 142 mmol/L (135-145); Total Protein 8.2 g/dL (6.5-8.0); Triglycerides 129 mg/dL (<150)
[2025-08-27 11:16] LABS: Appearance Urine Clear; Glucose Urine UA Negative (Negative); PH 5.5 (5.0-9.0); Specific Gravity - Urine 1.015 (1.005-1.025); UMIC TRIGGER UACC YES
[2025-08-27 11:19] LABS: Folate 9.8 ng/mL (> or = 4.0); Vitamin B12 532 pg/mL (200-900)
[2025-08-27 11:47] LABS: Microalbum/Creatinine Ratio Ur 53.1 ug/mg cr (<30)
== END 2025-08-27 08:50 | disposition home or self-care (01) ==
LOC: HO.LAB 08:49
PROVIDERS: PCP Internal Medicine; Visit Provider Internal Medicine
DX: E11.69 Type 2 diabetes mellitus with other specified complication (principal); E78.00 Pure hypercholesterolemia, unspecified; D64.9 Anemia, unspecified; E53.8 Deficiency of other specified B group vitamins; E55.9 Vitamin D deficiency, unspecified; R30.0 Dysuria
CPT/HCPCS: 36415; 80053; 80061; 81001; 81003; 82043; 82306; 82570; 82607; 82746; 83036; 84443; 85025

== ENCOUNTER 2025-09-10 10:55 | Outpatient (AMB) | payer OTHER, SELFPAY ==
[2025-09-10 10:57] VITALS: BP 142/90; PULSE 66; O2SAT 98; BMI 28.4
--- NOTE | 2025-09-10 10:57 | MHC.PC.OV ---
Vital Signs 09/10/25 10:57 Height 5 ft 2 in Weight 155 lb 6 oz BMI 28.4 BP 142/90 H Blood Pressure Location Lt brachial Position Sitting Pulse 66 Pulse Source Pulse Oximeter Pulse Oximetry (%) 98 Oxygen Delivery Method Room Air Intake Visit Reasons: DM, PAF, HTN, hyperlipidemia Contact Lens Blocker Required: No Accompanied by: Self / Same As Patient Allergies clindamycin (CLINDAMYCIN) Allergy (Intermediate, Verified 09/10/25 11:24) RASH latex (LATEX) Allergy (Intermediate, Verified 09/10/25 11:24) RASH/ITCH codeine Allergy (Unknown, Verified 09/10/25 11:24) RASH cortisone Allergy (Unknown, Verified 09/10/25 11:24) FACIAL SWELLING hydromorphone (Dilaudid) Allergy (Unknown, Verified 09/10/25 11:24) Unknown meperidine (Demerol) Allergy (Unknown, Verified 09/10/25 11:24) Unknown morphine Allergy (Unknown, Verified 09/10/25 11:24) Unknown nifedipine Allergy (Unknown, Verified 09/10/25 11:24) Unknown silver (From TEGADERM AG MESH) Allergy (Unknown, Verified 09/10/25 11:24) RASH Penicillins Adverse Reaction (Severe, Verified 09/10/25 11:24) CHEST PAIN oxycodone (OXYCODONE) Adverse Reaction (Intermediate, Verified 09/10/25 11:24) NAUSEA & VOMITING tramadol (TRAMADOL) Adverse Reaction (Intermediate, Verified 09/10/25 11:24) LETHARGY famotidine (From Pepcid) Adverse Reaction (Mild, Verified 09/10/25 11:24) nausa levofloxacin (From LEVAQUIN) Adverse Reaction (Mild, Verified 09/10/25 11:24) arrythmia per patient cephalexin (Keflex) Adverse Reaction (Unknown, Verified 09/10/25 11:24) diarrhea ciprofloxacin (Cipro) Adverse Reaction (Unknown, Verified 09/10/25 11:24) Unknown colchicine Adverse Reaction (Unknown, Verified 09/10/25 11:24) stomach ache ibuprofen (IBUPROFEN) Adverse Reaction (Unknown, Verified 09/10/25 11:24) NAUSEA & VOMITING metronidazole (Flagyl) Adverse Reaction (Unknown, Verified 09/10/25 11:24) Unknown LOBSTER Allergy (Severe, Uncoded 09/10/25 11:24) SWELLING iv contrast Allergy (Mild, Uncoded 09/10/25 11:24) Unknown Darvocet-N 50 Allergy (Unknown, Uncoded 09/10/25 11:24) Unknown Sulfa Adverse Reaction (Unknown, Uncoded 09/10/25 11:24) diarrhea Medication List - Last Reconciled 09/10/25 by Chandana Cottrell MD acetaminophen 1,000 mg PO BID PRN acyclovir 5% 1 appl topical 6XD PRN 7 days [ADULT PULL UPs - MEDIUM size As directed] amlodipine 5 mg PO DAILY apixaban (Eliquis) 5 mg PO BID 90 days celecoxib 200 mg PO DAILY PRN cholecalciferol (vitamin D3) 50 mcg PO DAILY 90 days dronedarone (Multaq) 400 mg PO BID fenofibrate nanocrystallized (Tricor) 145 mg PO DAILY 90 days flash glucose scanning reader ([employer] [address] [place]) As directed metoprolol succinate ER 12.5 mg (1/2 x 25 mg) PO DAILY mometasone 0.1% 1 appl topical DAILY PRN montelukast 10 mg PO DAILY 90 days pantoprazole 40 mg PO DAILY 90 days sitagliptin phosphate (Januvia) 50 mg PO DAILY 90 days tetrahydrozoline 0.05% (Visine) 1 drp ophthalmic (eye) TID PRN triazolam 0.25 mg PO BEDTIME PRN 30 days valsartan 160 mg PO DAILY Tobacco use date assessed: 09/10/25 Fall risk assessment: 1 Fall in past year Last assessed Fall Risk: 09/10/25 Dental Screening Dental Screen Date: 09/10/25 Did you have a dental visit in the last 12 months?: No Did you have a dental problem in the last 6 months where you did not have access to dental care?: No Was dental information given to patient?: No HPI DM, PAF, HTN, hyperlipidemia HPI Details Patient comes in today for her follow-up visit States that she feels okay She denies any headaches or dizziness Denies any chest pains, no increased shortness of breath No nausea/vomiting, no abdominal pain No change in bowel habits noted She had her follow-up labs done a couple of weeks ago - to discuss her results [facility] Medical History Insomnia Mitral stenosis Vitamin D deficiency Urinary incontinence Type 2 diabetes mellitus Asthma Overweight (BMI 25.0-29.9) Renal cell carcinoma of right kidney GERD without esophagitis Anxiety Osteoarthritis of left knee Impaired fasting glucose Paroxysmal atrial fibrillation Benign essential hypertension Mixed hyperlipidemia Surgical History History of maze procedure Status post mitral valve replacement S/P cardiac cath (~08/2020) History of right nephrectomy History of surgery History of surgery H/O nephrostomy H/O cardiac radiofrequency ablation History of tooth extraction History of hysterectomy History of section Family History Father Cancer Mother Stroke Hypertension Sister Cancer Social History Housing: House Alcohol intake: never Patient Tobacco Use Status: Never used Tobacco e-Cigarette/Vaping Use: Never Used Second Hand Smoke Exposure: Yes service: No Current occupational status: retired Cognitive needs: No Hearing needs: No Vision needs: No Questionnaire PHQ-9 Over the last 2 weeks, how often have you been bothered by any of the following problems? 1. Little interest or pleasure in doing things: not at all 2. Feeling down, depressed, or hopeless: not at all 3. Trouble falling or staying asleep, or sleeping too much: not at all 4. Feeling tired or having little energy: not at all 5. Poor appetite or overeating: not at all 6. Feeling bad about yourself - or that you are a failure or have let yourself or your family down: not at all 7. Trouble concentrating on things, such as reading the newspaper or watching television: not at all 8. Moving or speaking so slowly that other people could have noticed. Or the opposite - being so fidgety or restless that you have been moving around a lot more than usual: not at all 9. Thoughts that you would be better off or of hurting yourself in some way: not at all Total score: 0 Depression Screening Interpretation: Negative Depression Screening Done: Yes 42076 - PHQ-9 Billing: Yes Source: Developed by Drs. Leo Quinones, Kennedy Alonzo and colleagues, with an educational veto from [employer]. Thrive Questionnaire Date Thrive assessed: 09/10/25 I am a: Patient What is your living situation today?: I have a steady place to live Within the past 12 months, did the food you bought not last and you didn't have the money to get more?: I choose not to answer this question Within the past 12 months, did you worry whether your food would run out before you got money to buy more?: I choose not to answer this question Do you have trouble paying for medicines?: No Do you have trouble getting transportation to medical appointments?: No Do you have trouble paying your heating and electricity bill?: Yes Do you have trouble taking care of your child, family member or friend?: I choose not to answer this question Do you have trouble with day-to-day activities such as bathing, preparing meals, shopping, managing finances, etc.?: Yes Are you currently unemployed and looking for a job?: I choose not to answer this question Are you interested in more education?: I choose not to answer this question Please select the resources that you would like help with: None Currently or been in a relationship where the following occur: No concerns reported THRIVE Score: 1 AUDIT C Alcohol Use Questionnaire (AUDIT-C) 1. How often do you have a drink containing alcohol?: Never 3. How often do you have six or more drinks on one occasion?: Never Total Score: 0 Score Reviewed/Action Taken: Yes MACO-7 AMB Questionnaire MACO-7 Date MACO - 7 assessed: 09/10/25 Feeling nervous, anxious, or on edge: 0 = Not at all Not being able to stop or control worryin = Not at all Worrying too much about different things: 2 = More than half the days Trouble relaxin = Not at all Being so restless that it is hard to sit still: 0 = Not at all Becoming easily annoyed or irritable: 0 = Not at all Feeling afraid as if something awful might happen: 3 = Nearly every day Total MACO-7 score (0-4 normal; 5-9 mild; 10-14 moderate; 15-21 severe): 5 Source: Developed by Drs. Leo Quinones, Kennedy Alonzo and colleagues, with an educational veto from [employer]. Review of Systems Const Denies chills, Denies fatigue, Denies fever(s) and Denies headache(s) ENT Denies dysphagia, Denies dizziness, Denies otalgia, Denies headache(s), Denies neck pain, Denies odynophagia and Denies sore throat Card Denies chest pain, Denies palpitations and Reports dyspnea on exertion (mild) Resp Denies chest congestion, Denies cough and Reports dyspnea on exertion (mild) GI Denies abdominal pain, Denies constipation, Denies dysphagia, Denies heartburn, Denies diarrhea, Denies nausea, Denies odynophagia and Denies vomiting Denies difficulty voiding, Denies nocturia, Denies dysuria and Denies urinary urgency Musc Denies back pain and Denies neck pain Skin/Breast Denies rash Neuro Denies dizziness and Denies headache(s) Endo Denies fatigue and Denies palpitations Physical exam (Primary Care) Vital Signs: Last Vital Signs Pulse 66 09/10/25 10:57 BP 142/90 H 09/10/25 10:57 Pulse Ox 98 09/10/25 10:57 Oxygen Delivery Method Room Air 09/10/25 10:57 BMI result Body Mass Index 28.4 Tobacco/Smoking Status: Tobacco use Status Tobacco use date assessed 09/10/25 09/10/25 11:02 Patient Tobacco Use Status Never used Tobacco 09/10/25 11:02 e-Cigarette/Vaping Use Never Used 09/10/25 11:02 PHQ-9: PHQ-9 Score PHQ-9: Total score 0 09/10/25 11:02 Depression Screening Interpretation: Negative Thrive Assessment: Date of Thrive Assessment Date Thrive assessed 09/10/25 09/10/25 11:02 Currently or been in a relationship where the following occur: No concerns reported Const General: no acute distress and alert HENMT Ears: TM's normal bilaterally and EAC's normal Throat: Yes posterior oropharynx normal and Yes tonsils normal (no TP congestion noted) Neck Neck: Yes supple and No lymphadenopathy Thyroid: Thyroid normal Resp Auscultation: clear to auscultation bilaterally, no rales and no wheezes Cardio Rate: regular rate Rhythm: regular rhythm Heart sounds: no murmurs GI Palpation (GI): Soft to palpation and nontender Auscultation: normal bowel sounds General: Yes no CVA tenderness Back/Spine/Pelvis Back: no CVA tenderness Thoracic/Lumbar Spine: No lumbar spinal tenderness Skin Rashes: no rashes Extrem General: Yes no clubbing, cyanosis or edema Results Reviewed Results Reviewed: Laboratory Tests 08/27/25 08/27/25 09:01 09:18 WBC 9.5 Hgb 14.6 Hct 44.5 Plt Count 243 D Sodium 142 Potassium 4.3 Creatinine 0.83 Estimated GFR > 60 Fasting Glucose 136 H Hemoglobin A1c % 6.8 H Calcium 10.2 D AST 71 H ALT 60 H Triglycerides 129 Cholesterol 140 LDL Cholesterol, Calc 75 HDL Cholesterol 40 L Vitamin B12 532 25-OH Vitamin D Total 44.6 TSH 1.69 Ur Specific Jones 1.015 Urine Protein Negative Urine Glucose (UA) Negative Urine Blood Negative Urine Nitrite Negative Ur Leukocyte Esterase Trace H Microalb/Creat Ratio 53.1 H Coding Level of Care Code Est Pt Level 4 (77848) Diagnoses Nonrheumatic mitral valve stenosis I34.2 Cardiac valve disease etiology: nonrheumatic Paroxysmal atrial fibrillation I48.0 Mixed hyperlipidemia E78.2 Type 2 diabetes mellitus without complication, without long-term current use of insulin E11.9 Diabetes mellitus skilled nursing insulin use: without skilled nursing use Diabetes mellitus complication status: without complication Benign essential hypertension I10 Mild intermittent asthma without complication J45.20 Asthma severity: mild Asthma persistence: intermittent Asthma complication type: uncomplicated GERD without esophagitis K21.9 Vitamin D deficiency E55.9 Right foot pain M79.671 Primary osteoarthritis of left knee M17.12 Osteoarthritis type: primary Numbness and tingling of right lower extremity R20.0; R20.2 Insomnia, unspecified type G47.00 Insomnia type: unspecified Overweight (BMI 25.0-29.9) E66.3 Additional Codes PHQ-9 - 57645 - PHQ-9 Billing: Yes ([id number]) Assessment & Plan Assessment & Plan (1) Mitral stenosis: Code(s): I05.0 - Rheumatic mitral stenosis Category: Medical Qualifiers: Cardiac valve disease etiology: nonrheumatic Qualified Code(s): I34.2 - Nonrheumatic mitral (valve) stenosis Plan: S/P MVR with a 25 mm MITRIS bovine pericardial prosthesis on 03/28/2024 at [facility] for severe rheumatic mitral stenosis with symptoms Patient was on warfarin and aspirin therapy for a total of 3 months postop, after which she was switched over to Eliquis 5 mg BID She also completed cardiac rehab, which she states helped somewhat with her overall symptoms Follow up with cardiology as scheduled (2) Paroxysmal atrial fibrillation: Comment: S/P ablation. Status post Maze procedure, March 2024 in conjunction with mitral valve replacement Code(s): I48.0 - Paroxysmal atrial fibrillation Category: Medical Plan: S/P ablation; she also underwent left-sided MAZE procedure with amputation of the left atrial appendage at [facility] on 03/28/2024 when she had her mitral valve replacement surgery done Continue Multaq 400 mg BID; she is also on Metoprolol ER 25 mg 1/2 tablet QD and Amlodipine 5 mg QD Continue Eliquis 5 mg BID Follow up with cardiology as scheduled (3) Mixed hyperlipidemia: Code(s): E78.2 - Mixed hyperlipidemia Category: Medical Plan: Results of her labs done a couple of weeks ago reviewed and discussed with patient Reinforced low cholesterol diet Continue Fenofibrate 145 mg QD Will recheck her labs and fasting lipids in 4 months for follow up (4) Type 2 diabetes mellitus: Code(s): E11.9 - Type 2 diabetes mellitus without complications Category: Medical Qualifiers: Diabetes mellitus terminal operations manager insulin use: without terminal operations manager use Diabetes mellitus complication status: without complication Qualified Code(s): E11.9 - Type 2 diabetes mellitus without complications Plan: Her HgbA1c remains unchanged from before at 6.8% on her labs done a couple of weeks ago She is cautioned that her HgbA1c has gradually crept up over the past year, as she was at 6.2% previously in August 2024 - goal is <6.5% Reinforced diabetic diet/ exercise as tolerated Will now go ahead and increase her Sitagliptin to 100 mg QD (5) Benign essential hypertension: Code(s): I10 - Essential (primary) hypertension Category: Medical Plan: Reinforced low-sodium diet -? goal is systolic BP of 120 mm or less Continue Valsartan 80 mg QD, Amlodipine 5 mg QD and Metoprolol ER 12.5 mg QD She is reminded to continue monitoring her blood pressure regularly (6) Asthma: Code(s): J45.909 - Unspecified asthma, uncomplicated Category: Medical Qualifiers: Asthma severity: mild Asthma persistence: intermittent Asthma complication type: uncomplicated Qualified Code(s): J45.20 - Mild intermittent asthma, uncomplicated Plan: Controlled - continue Montelukast 10 mg Q PM Patient has NOT had to and does not like to use any asthma inhalers as much as possible - states that she often develops side effects when she used her asthma inhalers in the past Notes that her asthma has been well-controlled for years on Montelukast alone and hopes that this will continue for as long as possible (7) GERD without esophagitis: Code(s): K21.9 - Gastro-esophageal reflux disease without esophagitis Category: Medical Plan: Dietary restrictions reinforced Continue Pantoprazole 40 mg QD (8) Vitamin D deficiency: Code(s): E55.9 - Vitamin D deficiency, unspecified Category: Medical Plan: Continue Vitamin D3 2000 units QD (9) Right foot pain: Code(s): M79.671 - Pain in right foot Category: Medical Plan: Her right foot x-rays done a few months ago revealed (+) hallux valgus and bunion, as well as posterior and plantar calcaneal spurs Have advised patient that if her foot continues to bother her, we can refer her to Podiatry for further management (10) Osteoarthritis of left knee: Code(s): M17.12 - Unilateral primary osteoarthritis, left knee Category: Medical Qualifiers: Osteoarthritis type: primary Qualified Code(s): M17.12 - Unilateral primary osteoarthritis, left knee Plan: Continue Acetaminophen 1000 mg BID PRN for pain Follow up with orthopedics as needed (11) Numbness and tingling of right lower extremity: Code(s): R20.0 - Anesthesia of skin; R20.2 - Paresthesia of skin Category: Medical Plan: Patient states that her right lower extremity symptoms have been going on for a while now and feels that her symptoms are due to neuropathy, likely related to her diabetes, although this has never been formally evaluated She continues to work hard at controlling her blood sugar as she is concerned that uncontrolled diabetes will cause her neuropathy to progress and she prefers to avoid taking any Rx for her neuropathy as much as possible Have advised patient that we should look into this and recommend a formal EMG & NCV at some point for further evaluation - she asked to hold off on this until her next appointment in the spring Have advised patient that we can also refer her to physiatry to look into her leg symptoms and her left knee pain as well - states that she would like to hold off on these and wait until her next appointment in the spring to have these addressed (12) Insomnia: Comment: Zolpidem (unable to sleep; weakness; tremors); Doxepin (did not help her sleep) - has been doing well on Triazolam > 20 years Code(s): G47.00 - Insomnia, unspecified Category: Medical Qualifiers: Insomnia type: unspecified Qualified Code(s): G47.00 - Insomnia, unspecified Plan: Sleep hygiene reinforced Continue Triazolam 0.25 mg once a day at bedtime as needed (13) Overweight (BMI 25.0-29.9): Code(s): E66.3 - Overweight Category: Medical Plan: Reinforced diet/exercise as tolerated/lose weight - patient states that she continues to try to stay as active as she can Plan Follow up in 4 months Orders: Orders Complete Blood Count Auto Diff 4 Months D64.9 - Anemia, unspecified Hemoglobin A1c 4 Months E11.9 - Type 2 diabetes mellitus without complications UA CC w/rflx Micro + Cult 4 Months R30.0 - Dysuria Comprehensive [place]. Panel Fast 4 Months E78.00 - Pure hypercholesterolemia, unspecified Lipid Panel 4 Months E78.00 - Pure hypercholesterolemia, unspecified Microalbumin, Random (w Creat) 4 Months E11.9 - Type 2 diabetes mellitus without complications TSH reflex Free T4 4 Months E78.00 - Pure hypercholesterolemia, unspecified Vitamin D 25-OH Total 4 Months E55.9 - Vitamin D deficiency, unspecified Vitamin B12 and Folate 4 Months E53.8 - Deficiency of other specified B group vitamins Medications: Changed From sitagliptin phosphate (Januvia) 50 mg PO DAILY 90 days 90 tabs 1RF To sitagliptin phosphate 100 mg PO DAILY 90 tabs 1RF 90 days
--- OUTSIDE RECORDS SUMMARY | 2025-09-10 12:39 | XMS_ITS | Patient Health Record ---
Author Organization [facility] Address [address] [place] [id number] Care Team Providers Care Pulmonary Physical Therapist Name Role Phone Leo Oconnor [phone] Reason For Referral No Information Plan Of Treatment No Information
--- OUTSIDE RECORDS SUMMARY | 2025-09-10 12:40 | XMS_ITS | Clinical Summary ---
Author Organization [facility] Address [address] [address] Phone Care Team Providers Care Modeling Manager Name Role Phone Chandana Cottrell MD Primary Care Provider [phone] Allergies Active Allergy Reactions Criticality Noted Date Comments Clindamycin Hcl 06/22/2017 Codeine 06/22/2017 Hydrocortisone 06/22/2017 Rosuvastatin 06/22/2017 Propoxyphene N-Acetaminophen 017 Meperidine 06/22/2017 Cephalexin 06/22/2017 Latex, Natural Rubber 06/22/2017 Morphine 06/22/2017 Allergic to all narcotis Nifedipine 06/22/2017 Oxycodone Avq-Eumgptyhp-Tik 06/22/20 17 Penicillins 06/22/2017 Sulfa (Sulfonamide Antibiotics) [...] 2001 VIRTUAL COLONOSCOPY 2001 PNEUMOCOCCAL VACCINES (50+ years) (1 of 1 - PCV) 2006 ZOSTER VACCINES (1 of 2) 2006 DEPRESSION SCREENING 06/22/2018 06/22/2017 OSTEOPOROSIS SCREENING INITIAL (ONE-TIME) 2021 INFLUENZA VACCINE (#1) 2025 0, 07/28/2019, 07/08/2018, Additional history exists COVID-19 VACCINE (2 - 2024- season) 2025 01/10/2021 RSV VACCINE (1 - 1-dose 75+ series) 2031 SMOKING STATUS SCREENING (Once After 26 Yrs) Completed 06/22/2017 HEPATITIS A [...] topic Medical Devices Not on file Insurance [facility] [address] [place] [id number] [address] [place] [id number] [place] [place] [address] [place], [place] [id number] Care Teams Modeling Manager Relationship Specialty Start Date End Date Chadnana Cottrell MD [address] [place] [address] [address] [place] [address] PCP - General Internal Medicine 06/03/17 Additional Source Comments The information contained in this document represents components of the legal health record. It is not the complete legal health record.[facility]
== END 2025-09-10 11:53 | disposition home or self-care (01) ==
LOC: HO.HMCH 10:56
PROVIDERS: PCP Internal Medicine; Visit Provider Internal Medicine
DX: I34.2 Nonrheumatic mitral (valve) stenosis (principal); I48.0 Paroxysmal atrial fibrillation; E78.2 Mixed hyperlipidemia; E11.9 Type 2 diabetes mellitus without complications; I10 Essential (primary) hypertension; J45.20 Mild intermittent asthma, uncomplicated; K21.9 Gastro-esophageal reflux disease without esophagitis; E55.9 Vitamin D deficiency, unspecified; M79.671 Pain in right foot; M17.12 Unilateral primary osteoarthritis, left knee; R20.0 Anesthesia of skin; R20.2 Paresthesia of skin; G47.00 Insomnia, unspecified; E66.3 Overweight

== ENCOUNTER → 2025-09-10 10:55 | Outpatient (BNVA) | payer OTHER, SELFPAY | PROVIDERS: PCP Internal Medicine; Visit Provider Internal Medicine | DX: I34.2 Nonrheumatic mitral (valve) stenosis (principal); I48.0 Paroxysmal atrial fibrillation; I10 Essential (primary) hypertension; E78.2 Mixed hyperlipidemia; E11.9 Type 2 diabetes mellitus without complications; J45.20 Mild intermittent asthma, uncomplicated; K21.9 Gastro-esophageal reflux disease without esophagitis; E55.9 Vitamin D deficiency, unspecified; M79.671 Pain in right foot; M17.12 Unilateral primary osteoarthritis, left knee; R20.0 Anesthesia of skin; R20.2 Paresthesia of skin; G47.00 Insomnia, unspecified; E66.3 Overweight; Z68.28 Body mass index [BMI] 28.0-28.9, adult | CPT/HCPCS: 96127; 99212 ==

== ENCOUNTER 2025-09-11 13:44 | Outpatient (AMB) | payer OTHER, SELFPAY ==
--- NOTE | 2025-09-11 13:47 | MHC.OFFVIS ---
Vital Signs 09/11/25 13:48 Height 5 ft 2 in Weight 156 lb 15.506 oz BMI 28.7 BP 140/70 H Blood Pressure Location Lt brachial Position Sitting Pulse 78 Pulse Source Monitor Intake Visit Reasons: f/up w/ ekg Intake Note: f/up-w/ekg [employer] Official Required: No Accompanied by: Self / Same As Patient Allergies clindamycin (CLINDAMYCIN) Allergy (Intermediate, Verified 09/10/25 11:24) RASH latex (LATEX) Allergy (Intermediate, Verified 09/10/25 11:24) RASH/ITCH codeine Allergy (Unknown, Verified 09/10/25 11:24) RASH cortisone Allergy (Unknown, Verified 09/10/25 11:24) FACIAL SWELLING hydromorphone (Dilaudid) Allergy (Unknown, Verified 09/10/25 11:24) Unknown meperidine (Demerol) Allergy (Unknown, Verified 09/10/25 11:24) Unknown morphine Allergy (Unknown, Verified 09/10/25 11:24) Unknown nifedipine Allergy (Unknown, Verified 09/10/25 11:24) Unknown silver (From TEGADERM AG MESH) Allergy (Unknown, Verified 09/10/25 11:24) RASH Penicillins Adverse Reaction (Severe, Verified 09/10/25 11:24) CHEST PAIN oxycodone (OXYCODONE) Adverse Reaction (Intermediate, Verified 09/10/25 11:24) NAUSEA & VOMITING tramadol (TRAMADOL) Adverse Reaction (Intermediate, Verified 09/10/25 11:24) LETHARGY famotidine (From Pepcid) Adverse Reaction (Mild, Verified 09/10/25 11:24) nausa levofloxacin (From LEVAQUIN) Adverse Reaction (Mild, Verified 09/10/25 11:24) arrythmia per patient cephalexin (Keflex) Adverse Reaction (Unknown, Verified 09/10/25 11:24) diarrhea ciprofloxacin (Cipro) Adverse Reaction (Unknown, Verified 09/10/25 11:24) Unknown colchicine Adverse Reaction (Unknown, Verified 09/10/25 11:24) stomach ache ibuprofen (IBUPROFEN) Adverse Reaction (Unknown, Verified 09/10/25 11:24) NAUSEA & VOMITING metronidazole (Flagyl) Adverse Reaction (Unknown, Verified 09/10/25 11:24) Unknown LOBSTER Allergy (Severe, Uncoded 09/10/25 11:24) SWELLING iv contrast Allergy (Mild, Uncoded 09/10/25 11:24) Unknown Darvocet-N 50 Allergy (Unknown, Uncoded 09/10/25 11:24) Unknown Sulfa Adverse Reaction (Unknown, Uncoded 09/10/25 11:24) diarrhea Medication List - Last Reconciled 09/11/25 by Alex Kelly MD acetaminophen 1,000 mg PO BID PRN acyclovir 5% 1 appl topical 6XD PRN 7 days [ADULT PULL UPs - MEDIUM size As directed] amlodipine 5 mg PO DAILY apixaban (Eliquis) 5 mg PO BID 90 days celecoxib 200 mg PO DAILY PRN cholecalciferol (vitamin D3) 50 mcg PO DAILY 90 days dronedarone (Multaq) 400 mg PO BID fenofibrate nanocrystallized (Tricor) 145 mg PO DAILY 90 days flash glucose scanning reader (&[employer] Kiesha 2 [place]) As directed metoprolol succinate ER 12.5 mg (1/2 x 25 mg) PO DAILY mometasone 0.1% 1 appl topical DAILY PRN montelukast 10 mg PO DAILY 90 days pantoprazole 40 mg PO DAILY 90 days sitagliptin phosphate 100 mg PO DAILY 90 days tetrahydrozoline 0.05% (Visine) 1 drp ophthalmic (eye) TID PRN triazolam 0.25 mg PO BEDTIME PRN 30 days valsartan 160 mg PO DAILY HPI Comments Details: Dominga comes for follow-up. He has been doing well from cardiac perspective. She occasionally feels skipped heartbeats. No prolonged atrial fibrillation. Denies worsening shortness of breath, orthopnea, PND, leg edema. No lightheadedness, syncope. No bleeding issues or neurologic events. Maintains activity level as tolerated. Blood pressure has been well controlled. [facility] Medical History Insomnia Mitral stenosis Vitamin D deficiency Urinary incontinence Type 2 diabetes mellitus Asthma Overweight (BMI 25.0-29.9) Renal cell carcinoma of right kidney GERD without esophagitis Anxiety Osteoarthritis of left knee Impaired fasting glucose Paroxysmal atrial fibrillation Benign essential hypertension Mixed hyperlipidemia Surgical History History of maze procedure Status post mitral valve replacement S/P cardiac cath (~08/2020) History of right nephrectomy History of surgery History of surgery H/O nephrostomy H/O cardiac radiofrequency ablation History of tooth extraction History of hysterectomy History of section Family History Father Cancer Mother Stroke Hypertension Sister Cancer Social History Housing: House Alcohol intake: never Patient Tobacco Use Status: Never used Tobacco e-Cigarette/Vaping Use: Never Used Second Hand Smoke Exposure: Yes service: No Current occupational status: retired Cognitive needs: No Hearing needs: No Vision needs: No Review of Systems Const Denies chills, Denies fatigue, Denies fever(s), Denies frequent falls, Denies weakness, Denies weight gain and Denies weight loss ENT Denies dizziness Card Denies chest pain, Denies leg edema, Denies lightheadedness, Denies palpitations, Denies dyspnea and Denies dyspnea on exertion Resp Denies cough, Denies dyspnea and Denies dyspnea on exertion GI Denies hematochezia Musc Denies abnormal gait, Denies muscle weakness, Denies numbness, Denies radiating pain into limb and Denies tingling Neuro Denies abnormal gait, Denies dizziness, Denies frequent falls, Denies numbness, Denies tingling and Denies weakness Endo Denies fatigue and Denies palpitations Physical Exam Vital Signs: Last Vital Signs Pulse 78 09/11/25 13:48 BP 140/70 H 09/11/25 13:48 BMI result Body Mass Index 28.7 Const General: cooperative, comfortable, no acute distress, alert, awake and well groomed Nutritional Appearance: overweight Orientation/consciousness: patient oriented x3 Limitations: no limitations Neck Neck: Yes trachea midline, Yes supple and Yes no JVD Chest Chest palpation & inspection: other (Sternotomy wound is healing well) Resp Effort & Inspection: normal respiratory effort Auscultation: clear to auscultation bilaterally Cardio Jugular venous distension: no JVD Palpation: normal PMI Rate: regular rate Rhythm: regular rhythm Heart sounds: S1 normal heart sound present, S2 normal heart sound present, no click, no gallops and no murmurs GI Auscultation: normal bowel sounds Skin General skin exam: no rashes or lesions noted and ecchymosis Neuro General: patient oriented x3 and no focal motor deficits Extrem General: Yes no clubbing, cyanosis or edema Psych Appearance: grossly normal Affect: Anxious affect present Office Procedures EKG Details: EKGs shows normal sinus rhythm with rightward axis otherwise normal EKGs [id number], Complete Assessment & Plan Assessment & Plan (1) Nonischemic cardiomyopathy: Code(s): I42.8 - Other cardiomyopathies Category: Medical Plan: Mild nonischemic cardiomyopathy without overt signs of congestive heart failure. Continue current therapy with valsartan and metoprolol. Signs and symptoms of heart failure were discussed. Continue sitagliptin therapy. He had a rhythm control approach. Encouraged to increase activity level as tolerated. (2) Status post mitral valve replacement: Comment: 25 mm pericardial bioprosthetic valve, March 28, 2024 Code(s): Z95.2 - Presence of prosthetic heart valve Category: Surgical Plan: Status post bioprosthetic mitral valve replacement for severe mitral stenosis. Clinically doing well from that perspective. Will continue monitor mitral valve by echocardiogram. SBE prophylaxis as per ACC/[facility] guidelines. Currently on full oral anticoagulation with Eliquis and continue the same. (3) Paroxysmal atrial fibrillation: Comment: S/P ablation. Status post Maze procedure, March 2024 in conjunction with mitral valve replacement Code(s): I48.0 - Paroxysmal atrial fibrillation Category: Medical Plan: Paroxysmal atrial fibrillation status post Maze procedure as well as ablation. Overall doing well with rhythm control approach. Continue Multaq therapy which has tolerated well. She has done well with rhythm control approach and will continue pursue the same. Occasionally still feels palpitations. Avoidance of stimulants was discussed. Stress mitigation strategies was discussed. Continue full oral anticoagulation, currently on Eliquis 5 mg b.i.d.. Will follow up in the clinic in 3 months for EKG in 6 months with me. Thank you for allowing me to partake in her care Orders: Orders CA echo transthoracic complete 6 Months Z95.2 - Presence of prosthetic heart valve Coding Level of Care Code Est Pt Level 4 (43544) Diagnoses Nonischemic cardiomyopathy I42.8 Status post mitral valve replacement Z95.2 Paroxysmal atrial fibrillation I48.0 CPT Codes EKG - CPT: 62091-[id number], Complete ([id number])
[2025-09-11 13:48] VITALS: BP 140/70; PULSE 78; BMI 28.7
--- OUTSIDE RECORDS SUMMARY | 2025-09-11 17:34 | XMS_ITS | Clinical Summary ---
Author Organization [facility] Address [address] [address] Phone Care Team Providers Care Spanish Literature Professor Name Role Phone Chandana Cottrell MD Primary Care Provider [phone] Allergies Active Allergy Reactions Criticality Noted Date Comments Clindamycin Hcl 06/22/2017 Codeine 06/22/2017 Hydrocortisone 06/22/2017 Rosuvastatin 06/22/2017 Propoxyphene N-Acetaminophen 017 Meperidine 06/22/2017 Cephalexin 06/22/2017 Latex, Natural Rubber 06/22/2017 Morphine 06/22/2017 Allergic to all narcotis Nifedipine 06/22/2017 Oxycodone [id number] 06/22/20 17 Penicillins 06/22/2017 Sulfa (Sulfonamide Antibiotics) [...] Devices Not on file Insurance [facility] [address] [place], [place] [address] [address] [place] [address] [place] [address] [place] [address] [facility] Address: [facility] [address] [place] [address] Care Teams Spanish Literature Professor Relationship Specialty Start Date End Date Chandana Cottrell MD [address] [place] [address] [address] [place] [address] PCP - General Internal Medicine 06/03/17 Additional Source Comments The information contained in this document represents components of the legal health record. It is not the complete legal health record.[facility]
--- OUTSIDE RECORDS SUMMARY | 2025-09-11 17:34 | XMS_ITS | Patient Health Record ---
Author Organization [facility] Address [address] [place] [id number] Care Team Providers Care Slip Filler Name Role Phone Leo Oconnor [phone] Reason For Referral No Information Plan Of Treatment No Information
== END 2025-09-11 14:06 | disposition home or self-care (01) ==
PROVIDERS: PCP Internal Medicine; Visit Provider Internal Medicine Cardiovascular Disease
DX: I42.8 Other cardiomyopathies (principal); Z95.2 Presence of prosthetic heart valve; I48.0 Paroxysmal atrial fibrillation
CPT/HCPCS: 93010; 99214

== ENCOUNTER → 2025-09-11 13:44 | Outpatient (BNVA) | payer OTHER, SELFPAY | PROVIDERS: PCP Internal Medicine; Visit Provider Internal Medicine Cardiovascular Disease | DX: I42.8 Other cardiomyopathies (principal); I48.0 Paroxysmal atrial fibrillation; Z95.2 Presence of prosthetic heart valve; Z79.899 Other long term (current) drug therapy; Z79.01 Long term (current) use of anticoagulants | CPT/HCPCS: 93005; 99212 ==